=== PATIENT | female | born 1950 | race Caucasian/White ===

== ENCOUNTER 2016-09-20 00:53 | Emergency (ER) | payer MEDICARE ==
[~2016-09-20] VITALS: Ht 160 cm; Wt 66.7 kg
[~2016-09-20 00:53] MED LIST: ACYCLOVIR800 MG PO; ALEVE220 MG PO; BENZONATATE100 MG PO; CLONAZEPAM 1MG T1 MG PO; CYCLOBENZAPRINE10 MG PO; CYMBALTA60 MG PO; DARVOCET A500 51 TAB PO; DICYCLOMINE20 MG PO; FLEXERIL10 MG PO; FOLIC ACID1 MG PO; GABAPENTIN300 MG PO; HYDROCHLOROTH12.5 M1 PO; LISINOPRIL5 MG PO; MELOXICAM15 MG PO; MUCINEX600 MG PO; NORTRIPTYLINE10 MG PO; PRAVASTATIN20 MG PO; PROPRANOLOL HCL40 MG PO; TIZANIDINE4 MG PO; TOPAMAX100 MG PO; VICODIN 5/500 T1 TAB PO; ZOLPIDEM10 MG PO; [UNRECOGNIZED DRUG - OTHER] PO
--- NOTE | 2016-09-20 01:10 | Emergency Room Report ---
History of Present Illness Time Seen by [id number] Presenting Problem in Triage Pt arrived:Stretcher Presenting Problem:PT BROUGHT IN BY AMBULANCE FROM [facility]. PT REPORTS THAT SHE HAS WORMS IN HER BODY. PT REPORTS THAT ONE IS PRESSING AGAINST HER BRAIN AND THERE IS ONE IN HER INTESTINES. 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 N Clinical Suspician of Infection? N Mental Status: 1 - Regular (Normal Baseline) Sepsis Risk:Low Sepsis Risk Have you (or family members/close friends) recently traveled outside the [place]? N If Yes, where/when: Have you had exposure to infectious disease within the past month? N TB? Other? Specify: Source patient, RN notes reviewed, RN/MD, EMS notes reviewed Exam Limitations no limitations Comment This is a 66-year-old female patient, with known schizoaffective disorder that he is being brought in by EMS from [facility] with multiple various complaints. She was recently admitted at [facility] approximately 3 days ago. Patient says that she feels "something crawling through my veins", generalized "weakness", "something moving through my scalp". ALLERGIES Coded Allergies: MDX - Penicillin (Penicillin) (03/15/07) Converted from Ingredient Allergy: Penicillin Converted from Drug Class Allergy: Penicillins MDX - Penicillin G (From Penicillin G Sodium) (03/15/07) Converted from Generic Allergy: Penicillin G Sodium MDX - SULFA (sulfonamide) (SULFA (sulfonamide)) (08/06/08) Converted from Ingredient Allergy: SULFA (sulfonamide) MDX - Sulfamethoxazole (Sulfamethoxazole) (08/06/08) Converted from Generic Allergy: Sulfamethoxazole W/Trimethop ri MDX - Trimethoprim (Trimethoprim) (08/06/08) Converted from Generic Allergy: Sulfamethoxazole W/Trimethop nm Home Medications Reported Medications Hydrochlorothiazide (Hydrochlorothiazide 12.5MG) 12.5 MG PO DAILY TIZANIDINE HCL (Tizanidine) 4 MG PO TID PRN Cyclobenzaprine Hcl (Cyclobenzaprine 10MG) 10 MG PO BID Clonazepam (Clonazepam 1MG) 1 MG PO QHS Folic Acid 1 MG PO DAILY Topiramate (Topamax) 150 MG PO QHS Meloxicam (Meloxicam 15MG) 15 MG PO BID Lisinopril 5 MG PO DAILY Nortriptyline Hcl (Nortriptyline HCl) 1 CAP PO DAILY Propranolol Hcl 40 MG PO BID Pravastatin Sodium 20 MG PO QHS Acyclovir (Acyclovir 800MG) 800 MG PO DAILY History Medical History General Angina: Yes PR: No Hypertension? Yes Hyperlipidemia? No CHF? No COPD? No Asthma? No Hernia? No CVA? No Seizures? No Diabetes? No UTI? No Stones? No GB Disease: No Hepatitis? No Cataracts? No Glaucoma? No MRSA? No TB? No Cancer? No More? Yes Additional hx: SCHIZOAFFECTIVE Immunization Hx DT/Tetanus > 10 YRS Flu NEVER Pneumonia NEVER Surgical Hx Previous Surgery?Y Hysterect POLYPECTOMY R BREAST LUMPECTOMY X 2 R BREAST TISSUE REMOVED EYELID BILATERALLY COLONOSCOPY LT KNEE Family History Family Hx Diabetes Yes CAD Yes Hypertension Yes Hyperlipidemia Yes Cancer Yes TB Yes Social History Smoking Hx Smoker: Former Smoker Tobacco: No Packs/day < 1 Pack Alcohol Alcohol: No Review of Systems All Other Systems Reviewed and Negative Psychiatric/Neurological weakness Physical Exam Vital Signs Vital Signs Date Time Temp Pulse Resp B/P Pulse O2 O2 Flow FiO2 Ox Delivery Rate 09/20 0252 78 16 156/70 98 09/20 0250 78 16 156/70 98 09/20 0218 67 16 147/52 98 09/20 0147 72 12 163/64 98 09/20 0055 98.0 84 18 183/70 100 General Appearance normal appearance, WD/WN, no apparent distress Neck normal inspection, non-tender, supple, full range of motion Respiratory Status Yes: trachea midline, chest symmetrical, non tender chest. No: respiratory distress. Lung Sounds bilateral: normal breath sounds, lungs clear. 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 No Comment Upon reevaluation patient appears in no acute distress, medically stable, asleep. Advised patient of results obtained, need to drink more fluids and follow-up with Dr. Bass within the next 2 days. Results/Orders Laboratory Tests 09/20/16 0120: Sodium 136, Potassium 3.4 L, Chloride 98, Carbon Dioxide 29, BUN 13, Creatinine 0.8, Estimated Creat Clear 74, Estimated GFR (MDRD) 72, Glucose 114 H, Calcium 8.5, Total Bilirubin 0.3, AST 18, ALT 22, Alkaline Phosphatase 122 H, Total Protein 6.6, Albumin 3.2 L, Globulin 3.4 H, Albumin/Globulin Ratio 0.9 L, WBC 7.2, RBC 3.48 L, Hgb 10.8 L, Hct 32.5 L, MCV 93.5, RDW 14.3, Plt Count 222, MPV 5.6 L, Gran % 69.7, Gran # 5.1, Lymphocytes % 22.2, Monocytes % 4.4, Eosinophils % 3.0, Basophils % 0.8, Lymphocytes # 1.6, Monocytes # 0.3, Eosinophils # 0.2, Basophils # 0.1, PUBS MCHC 33.3, MCH 31.1 09/20/16 010: Urine Color Cancelled, Urine Appearance Cancelled, Urine pH Cancelled, Ur Specific [place] Cancelled Orders Procedure Date/time Status CBC WITH AUTO DIFF 09/20 108 Complete CHEM 12 PROFILE 09/20 108 Complete Departure Departure Time of Disposition 0215 Disposition DC Home or Self Care(routine) Clinical Impression Primary Impression: Dehydration Secondary Impressions: Anemia Qualifiers: Anemia type: unspecified type Qualified Code: D64.9 - Anemia, unspecified Schizoaffective disorder Qualifiers: Schizoaffective disorder type: unspecified Qualified Code: F25.9 - Schizoaffective disorder, unspecified Condition STABLE Referrals Nikolai Bass (Family): Today after leaving ER Patient Instructions DI for Dehydration -- Adult, DI for Schizoaffective Disorder Additional Instructions Please continue your medications as previously instructed, drink more fluids, follow-up with Dr. Bass in the morning. Discharge Counseling Counseled pt/family regarding diagnosis, test results, medications/RX, home care, follow up needs Comment Please continue your medications as previously instructed, drink more fluids, follow-up with Dr. Bass in the morning. ED Critical Care Critical Care No at 0701
--- NOTE | 2016-09-20 01:10 | Emergency Room Report ---
History of Present Illness Time Seen by [id number] Presenting Problem in Triage Pt arrived:Stretcher Presenting Problem:PT BROUGHT IN BY AMBULANCE FROM [facility]. PT REPORTS THAT SHE HAS WORMS IN HER BODY. PT REPORTS THAT ONE IS PRESSING AGAINST HER BRAIN AND THERE IS ONE IN HER INTESTINES. 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 N Clinical Suspician of Infection? N Mental Status: 1 - Regular (Normal Baseline) Sepsis Risk:Low Sepsis Risk Have you (or family members/close friends) recently traveled outside the [place]? N If Yes, where/when: Have you had exposure to infectious disease within the past month? N TB? Other? Specify: Source patient, RN notes reviewed, RN/MD, EMS notes reviewed Exam Limitations no limitations Comment This is a 66-year-old female patient, with known schizoaffective disorder that he is being brought in by EMS from [facility] with multiple various complaints. She was recently admitted at [facility] approximately 3 days ago. Patient says that she feels "something crawling through my veins", generalized "weakness", "something moving through my scalp". ALLERGIES Coded Allergies: MDX - Penicillin (Penicillin) (03/15/07) Converted from Ingredient Allergy: Penicillin Converted from Drug Class Allergy: Penicillins MDX - Penicillin G (From Penicillin G Sodium) (03/15/07) Converted from Generic Allergy: Penicillin G Sodium MDX - SULFA (sulfonamide) (SULFA (sulfonamide)) (08/06/08) Converted from Ingredient Allergy: SULFA (sulfonamide) MDX - Sulfamethoxazole (Sulfamethoxazole) (08/06/08) Converted from Generic Allergy: Sulfamethoxazole W/Trimethop ri MDX - Trimethoprim (Trimethoprim) (08/06/08) Converted from Generic Allergy: Sulfamethoxazole W/Trimethop ga Home Medications Reported Medications Hydrochlorothiazide (Hydrochlorothiazide 12.5MG) 12.5 MG PO DAILY TIZANIDINE HCL (Tizanidine) 4 MG PO TID PRN Cyclobenzaprine Hcl (Cyclobenzaprine 10MG) 10 MG PO BID Clonazepam (Clonazepam 1MG) 1 MG PO QHS Folic Acid 1 MG PO DAILY Topiramate (Topamax) 150 MG PO QHS Meloxicam (Meloxicam 15MG) 15 MG PO BID Lisinopril 5 MG PO DAILY Nortriptyline Hcl (Nortriptyline HCl) 1 CAP PO DAILY Propranolol Hcl 40 MG PO BID Pravastatin Sodium 20 MG PO QHS Acyclovir (Acyclovir 800MG) 800 MG PO DAILY History Medical History General Angina: Yes MT: No Hypertension? Yes Hyperlipidemia? No CHF? No COPD? No Asthma? No Hernia? No CVA? No Seizures? No Diabetes? No UTI? No Stones? No GB Disease: No Hepatitis? No Cataracts? No Glaucoma? No MRSA? No TB? No Cancer? No More? Yes Additional hx: SCHIZOAFFECTIVE Immunization Hx DT/Tetanus > 10 YRS Flu NEVER Pneumonia NEVER Surgical Hx Previous Surgery?Y Hysterect POLYPECTOMY R BREAST LUMPECTOMY X 2 R BREAST TISSUE REMOVED EYELID BILATERALLY COLONOSCOPY LT KNEE Family History Family Hx Diabetes Yes CAD Yes Hypertension Yes Hyperlipidemia Yes Cancer Yes TB Yes Social History Smoking Hx Smoker: Former Smoker Tobacco: No Packs/day < 1 Pack Alcohol Alcohol: No Review of Systems All Other Systems Reviewed and Negative Psychiatric/Neurological weakness Physical Exam Vital Signs Vital Signs Date Time Temp Pulse Resp B/P Pulse O2 O2 Flow FiO2 Ox Delivery Rate 09/20 0252 78 16 156/70 98 09/20 0250 78 16 156/70 98 09/20 0218 67 16 147/52 98 09/20 0147 72 12 163/64 98 09/20 0055 98.0 84 18 183/70 100 General Appearance normal appearance, WD/WN, no apparent distress Neck normal inspection, non-tender, supple, full range of motion Respiratory Status Yes: trachea midline, chest symmetrical, non tender chest. No: respiratory distress. Lung Sounds bilateral: normal breath sounds, lungs clear. 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 No Comment Upon reevaluation patient appears in no acute distress, medically stable, asleep. Advised patient of results obtained, need to drink more fluids and follow-up with Dr. Bass within the next 2 days. Results/Orders Laboratory Tests 09/20/16 0120: Sodium 136, Potassium 3.4 L, Chloride 98, Carbon Dioxide 29, BUN 13, Creatinine 0.8, Estimated Creat Clear 74, Estimated GFR (MDRD) 72, Glucose 114 H, Calcium 8.5, Total Bilirubin 0.3, AST 18, ALT 22, Alkaline Phosphatase 122 H, Total Protein 6.6, Albumin 3.2 L, Globulin 3.4 H, Albumin/Globulin Ratio 0.9 L, WBC 7.2, RBC 3.48 L, Hgb 10.8 L, Hct 32.5 L, MCV 93.5, RDW 14.3, Plt Count 222, MPV 5.6 L, Gran % 69.7, Gran # 5.1, Lymphocytes % 22.2, Monocytes % 4.4, Eosinophils % 3.0, Basophils % 0.8, Lymphocytes # 1.6, Monocytes # 0.3, Eosinophils # 0.2, Basophils # 0.1, PUBS MCHC 33.3, MCH 31.1 09/20/16 010: Urine Color Cancelled, Urine Appearance Cancelled, Urine pH Cancelled, Ur Specific [place] Cancelled Orders Procedure Date/time Status CBC WITH AUTO DIFF 09/20 108 Complete CHEM 12 PROFILE 09/20 108 Complete Departure Departure Time of Disposition 0215 Disposition DC Home or Self Care(routine) Clinical Impression Primary Impression: Dehydration Secondary Impressions: Anemia Qualifiers: Anemia type: unspecified type Qualified Code: D64.9 - Anemia, unspecified Schizoaffective disorder Qualifiers: Schizoaffective disorder type: unspecified Qualified Code: F25.9 - Schizoaffective disorder, unspecified Condition STABLE Referrals Nikolai Bass (Family): Today after leaving ER Patient Instructions DI for Dehydration -- Adult, DI for Schizoaffective Disorder Additional Instructions Please continue your medications as previously instructed, drink more fluids, follow-up with Dr. Bass in the morning. Discharge Counseling Counseled pt/family regarding diagnosis, test results, medications/RX, home care, follow up needs Comment Please continue your medications as previously instructed, drink more fluids, follow-up with Dr. Bass in the morning. ED Critical Care Critical Care No at 0701
[2016-09-20 01:38] LABS: LYMPH # 1.6 K/mm3 (0.7-4.5); LYMPH % 22.2 % (10-50.0)
[2016-09-20 01:39] LABS: HEMOGLOBIN 10.8 g/dL (12.2-16.2)
[2016-09-20 02:52] VITALS: BP 156/70
[2016-10-02] MEDS ORDERED: OMEGA-31000 M2 PO (03:31)
[2016-10-02] MEDS ORDERED: OMEPRAZOLE40 MG PO (03:32)
[2016-10-02] MEDS ORDERED: RISPERIDONE1 MG PO (03:35)
[2016-10-02] MEDS ORDERED: RISPERDAL 0.50.5 MG NG (03:36)
[2016-10-02] MEDS ORDERED: ALBUTEROL2.5 MG/NEB INH (03:39)
[2016-10-02] MEDS ORDERED: BACLOFEN20 MG PO (03:41)
[2016-10-02] MEDS ORDERED: MIRALAX(PO17 GM/1 PA PO (03:42)
[2016-10-02] MEDS ORDERED: ASPIRIN 81MG TA81 MG PO (03:43)
[2016-10-02] MEDS ORDERED: CALCI-CHEW500 MG PO (03:45)
[2016-10-02] MEDS ORDERED: DEPAKOTE ER250 MG PO (03:47)
[2016-10-02] MEDS ORDERED: DOCUSATE SODIU100 MG PO (03:48)
[2016-10-02] MEDS ORDERED: ALLERGY10 MG PO (03:49)
[2016-10-02] MEDS ORDERED: MELATONIN3 MG PO (03:50)
[2016-10-04] MEDS ORDERED: DILANTIN100 MG PO (12:23)
== END 2016-09-20 02:55 | disposition home or self-care (01) ==
LOC: ER 00:53
PROVIDERS: Emergency Medicine
DX: F25.9 Schizoaffective disorder, unspecified (principal); D64.9 Anemia, unspecified; I10 Essential (primary) hypertension

== ENCOUNTER → 2017-01-24 | Outpatient (CLI) | payer MEDICARE, MEDICAID ==
[~2017-01-24] MED LIST changes: +ALBUTEROL2.5 MG/NEB INH; +ALLERGY10 MG PO; +ASPIRIN 81MG TA81 MG PO; +BACLOFEN20 MG PO; +CALCI-CHEW500 MG PO; +DEPAKOTE ER250 MG PO; +DILANTIN100 MG PO; +DOCUSATE SODIU100 MG PO; +MEDROL DOSEPAK4 MG PO; +MELATONIN3 MG PO; +MIRALAX(PO17 GM/1 PA PO; +OMEGA-31000 M2 PO; +OMEPRAZOLE40 MG PO; +RISPERDAL 0.50.5 MG NG; +RISPERIDONE1 MG PO
== END ==
LOC: RT 10:59
DX: Z80.0 Family history of malignant neoplasm of digestive organs (principal); Z01.818 Encounter for other preprocedural examination

== ENCOUNTER 2017-05-18 05:08 | Emergency (ER) | payer MEDICARE, MEDICAID ==
[~2017-05-18] VITALS: Ht 160 cm; Wt 71.7 kg
[~2017-05-18 05:08] MED LIST changes: +AMLODIPINE BES10 MG PO; +ATIVAN1 MG PO; +AVPAK AZITHROM250 MG PO; +FLONASE 50 MCG16 GM; +FUROSEMIDE 40MG40 M1 PO; +IMODIUM A-D2 M3 PO; +LISINOPRIL10 MG PO; +LOPRESSOR 50 MG50 MG PO; +MELOXICAM7.5 MG PO; +PHENYTOIN 100M100 MG PO; +POTASSIUM CHLO10 ME4 PO; +PROAIR HFA0.09 MG/AC IH; +RISPERDAL 0.50.5 MG PO; +RISPERIDONE3 MG PO; +ROBITUSSIN10 ML/UDC PO; +SERTRALINE 50MG50 MG PO
[2017-05-18 05:34] LABS: HEMOGLOBIN 11.9 g/dL (12.2-16.2); LYMPH # 1.7 K/mm3 (0.7-4.5); LYMPH % 34.3 % (10-50.0)
--- OUTSIDE RECORDS SUMMARY | 2017-05-18 05:53 | External Medical Summary Rpt | CCD ---
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 46 1- 3- 00 14 CA ve N 28 20 20 93 RE 81 88 17 17 05 9 15 PH MG AR MA CH CY EW AB LE TA BL ET DO 45 09 10 60 30 00 ME Ac CU 80 -1 -1 .0 00 D ti SA 20 3- 3- 00 14 CA ve TE 48 20 20 93 RE 67 17 17 43 SO 8 39 PH DI AR UM MA CY 10 0 MG SO FT GE L ME 00 09 10 60 30 00 ME Ac LA 90 -1 -1 .0 00 D ti TO 45 1- 3- 00 14 CA ve NI 18 20 20 92 RE N 25 17 17 30 3 2 77 PH MG AR MA TA CY BL ET LO 00 09 10 30 30 00 ME Ac RA 78 -0 -0 .0 00 D ti TA 15 8- 6- 00 14 CA ve DI 07 20 20 91 RE NE 70 17 17 89 1 54 PH 10 AR MA MG CY TA BL ET MA 00 08 09 40 5 00 ME Ac PA 90 -2 -2 .0 00 D ti P 41 3- 2- 00 14 CA ve 32 98 20 20 83 RE 5 26 17 17 14 MG 1 48 PH AR TA MA BL CY ET LO 00 07 09 30 30 00 ME Ac RA 78 -3 -0 .0 00 D ti TA 15 1- 1- 00 14 CA ve DI 07 20 20 67 RE NE 70 17 17 97 1 07 PH 10 AR MA MG CY TA BL ET MA 00 08 09 40 5 00 ME Ac PA 90 -1 -0 .0 00 D ti P 41 1- 1- 00 14 CA ve 32 98 20 20 76 RE 5 26 17 17 10 MG 1 89 PH AR TA MA BL CY ET MA 00 07 08 40 5 00 ME Ac PA 90 -2 -1 .0 00 D ti P 41 2- 8- 00 14 CA ve 32 98 20 20 64 RE 5 26 17 17 83 MG 1 38 PH AR TA MA BL CY ET 00 07 08 30 30 00 ME Ac PI 90 -0 -0 .0 00 D ti RI 46 5- 4- 00 14 CA ve N 28 20 20 52 RE 81 88 17 17 32 9 07 PH MG AR MA CH CY EW AB LE TA BL ET CA 00 07 08 30 30 00 ME Ac LC 53 -0 -0 .0 00 D ti IU 61 5- 4- 00 14 CA ve M 04 20 20 52 RE AN 81 17 17 32 TA 5 08 PH CI AR D MA 50 CY 0 MG CH W TA B LO 00 07 08 30 30 00 ME Ac RA 78 -0 -0 .0 00 D ti TA 15 3- 4- 00 14 CA ve DI 07 20 20 51 RE NE 70 17 17 63 1 36 PH 10 AR MA MG CY TA BL ET DO 45 07 08 60 30 00 ME Ac CU 80 -1 -0 .0 00 D ti SA 20 1- 4- 00 14 CA ve TE 48 20 20 56 RE 67 17 17 72 SO 8 61 PH DI AR UM MA CY 10 0 MG SO FT GE L DO 45 06 07 60 30 00 ME Ac CU 80 -1 -0 .0 00 D ti SA 20 2- 7- 00 14 CA ve TE 48 20 20 38 RE 67 17 17 50 SO 8 01 PH DI AR UM MA CY 10 0 MG SO FT GE L DO 45 02 05 0 60 30 ME 14 GA Ac CU 80 -1 -1 0. D 18 IN ti SA 20 7- 2- 00 CA 35 EY ve TE 48 20 20 0 RE 94 67 17 17 NE SO 8 PH CH DI AR AE UM MA L CY S 10 0 LL MG C SO FT GE L LO 00 02 05 0 30 30 ME 14 GA Ac RA 78 -1 -0 0. D 15 IN ti TA 15 7- 8- 00 CA 68 EY ve DI 07 20 20 0 RE 53 NE 70 17 17 NE 1 PH CH 10 AR AE MA L MG CY S TA LL BL C ET 00 02 05 0 30 30 ME 14 GA Ac PI 90 -1 -0 0. D 15 IN ti RI 46 7- 8- 00 CA 68 EY ve N 28 20 20 0 RE 54 81 88 17 17 NE 9 PH CH MG AR AE MA L CH CY S EW AB LL LE C TA BL ET CA 00 02 05 0 30 30 ME 14 GA Ac LC 53 -1 -0 0. D 15 IN ti IU 61 7- 8- 00 CA 68 EY ve M 04 20 20 0 RE 56 AN 81 17 17 NE TA 5 PH CH CI AR AE D MA L 50 CY S 0 MG LL C CH W TA B ME 00 02 05 0 60 30 ME 14 GA Ac LA 90 -1 -0 0. D 16 IN ti TO 45 8- 8- 00 CA 69 EY ve NI 18 20 20 0 RE 08 N 25 17 17 NE 3 2 PH CH MG AR AE MA L TA CY S BL ET LL C DO 45 02 04 0 60 30 ME 14 GA Ac CU 80 -1 -1 0. D 04 IN ti SA 20 7- 4- 00 CA 55 EY ve TE 48 20 20 0 RE 10 67 17 17 NE SO 8 PH CH DI AR AE UM MA L CY S 10 0 LL MG C SO FT GE L ME 00 02 04 0 60 30 ME 14 GA Ac LA 90 -1 -1 0. D 04 IN ti TO 45 8- 4- 00 CA 55 EY ve NI 18 20 20 0 RE 13 N 25 17 17 NE 3 2 PH CH MG AR AE MA L TA CY S BL ET LL C 00 02 04 0 30 30 ME 14 GA Ac PI 90 -1 -1 0. D 03 IN ti RI 46 7- 2- 00 CA 81 EY ve N 28 20 20 0 RE 02 81 88 17 17 NE 9 PH CH MG AR AE MA L CH CY S EW AB LL LE C TA BL ET CA 00 02 04 0 30 30 ME 14 GA Ac LC 53 -1 -1 0. D 03 IN ti IU 61 7- 2- 00 CA 81 EY ve M 04 20 20 0 RE 04 AN 81 17 17 NE TA 5 PH CH CI AR AE D MA L 50 CY S 0 MG LL C CH W TA B LO 00 02 04 0 30 30 ME 14 GA Ac RA 78 -1 -1 0. D 03 IN ti TA 15 7- 2- 00 CA 81 EY ve DI 07 20 20 0 RE 05 NE 70 17 17 NE 1 PH CH 10 AR AE MA L MG CY S TA LL BL C ET Results Labs Lab Lab Date Result Refere Interp Status Commen Order Detail nces retati t Range on CBC w auto diff (05-18-2017 05:25) Automat = 6.7 % 0.1-12. complet ed 017 0 ed blood 05:25 eosinop hils/10 0 leukocy t Blood = 2.5 1.8-7.8 complet granulo 017 K/mm3 ed cytes 05:25 automat ed count (numb Granulo = 51.2 37.0-80 complet cyte 017 % .0 ed percent 05:25 age Blood = 35.6 37.0-47 complet hematoc 017 % .0 ed rit 05:25 (volume fractio n) Blood = 11.9 12.2-16 complet hemoglo 017 g/dL .2 ed bin 05:25 measure ment (mass/v olum Absolut = 1.7 0.7-4.5 complet e 017 K/mm3 ed lymphoc 05:25 yte count Lymphoc = 34.3 10-50.0 complet yte 017 % ed count, 05:25 blood, automat ed Mean = 29.9 27-31.2 complet corpusc 017 pg ed ular 05:25 hemoglo bin (MCH) determ Automat = 33.4 31.8-35 complet ed 017 g/dl .4 ed erythro 05:25 cyte mean corpusc ular h Automat = 89.7 82.2-97 complet ed 017 fl .8 ed erythro 05:25 cyte mean corpusc ular v Absolut = 0.3 0.1-1.0 complet e 017 K/mm3 ed monocyt 05:25 e count Maury % = 7.1 % 1.7-9.3 complet 017 ed 05:25 Automat = 8.0 7.4-10. complet ed 017 fl 4 ed blood 05:25 platele t mean volume brando Blood = 189 142-424 complet platele 017 K/mm3 ed t count 05:25 Red 10-18-2 = 3.97 4.2-5.4 complet blood 017 M/mm3 ed cell 05:25 count Automat 1018-2 = 15.7 11.5-17 complet ed 017 % .5 ed erythro 05:25 cyte distrib ution width Blood 18-2 = 4.8 4.8-10. complet leukocy 017 K/MM3 8 ed hernando 05:25 count (number /volume ) Automat 18-2 = 0.0 0-0.2 complet ed 017 K/MM3 ed blood 05:25 basophi l count (count/ vo Baso % 05-18-2 = 0.7 % 0.1-2.0 complet 017 ed 05:25 Automat 1018-2 = 0.3 0.0-0.4 complet ed 017 K/mm3 ed blood 05:25 eosinop hil count Procedures Procedure DOS Code Location Performer Comment SLCTV 07094 [facility] CATH 7 PHYSICIAN 1STORD S GROUP W/WO ART PUNCT/FLU OR/S&I CAROLYN CATH PLMT 28838 [facility] HRT & 7 PHYSICIAN ARTS S GROUP W/NJX & ANGIO IMG S&I RADIOLOGI 80185 [facility] EXAM 7 MEDICAL CHEST 2 IMAGING VIEWS ASS FRONTAL&L ATERAL ECG 39946 [facility] ROUTINE 7 PHYSICIAN ECG S, PLLC W/LEAST 12 LDS I&R ONLY INITIAL 05755 [facility] 7 PHYSICIAN CARE/DAY S GROUP 70 MINUTES CRITICAL 92575 [facility] 7 PHYSICIAN ILL/INJUR S, PLLC ED PATIENT INIT 30-74 MIN GROUND A0425 [facility] MILEAGE 7 AMBULANCE AMBULANCE PER SERVICE SERVICE STATUTE MILE AMBULANCE A0429 [facility] SERVICE 7 AMBULANCE AMBULANCE BLS SERVICE SERVICE EMERGENCY TRANSPORT ECG 55100 [facility] ROUTINE 7 [facility] W/LEAST P 12 LDS I&R ONLY NONEMERG A0120 [facility]ER[facility] TRNSPRT: 7 MINI-BUS TRANSPORT TRANSPORT MTN ATION SER ATION SER AREA/OTH SYS ECG 27767 [facility] ROUTINE 7 [facility] ECG INC INC W/LEAST 12 LDS W/I&R RADEX HIP 53344 [facility] 7 MEDICAL UNILATERA IMAGING L WITH ASS PELVIS 2-3 VIEWS THERAPEUT 93640 [facility] IC 7 [facility] PROPHYLAC INC INC TIC/DX INJECTION SUBQ/IM AMBULANCE A0429 [facility] SERVICE 7 AMBULANCE AMBULANCE BLS SERVICE SERVICE EMERGENCY TRANSPORT GROUND A0425 [facility] MILEAGE 7 AMBULANCE AMBULANCE PER SERVICE SERVICE STATUTE MILE BASIC 57282 [facility] METABOLIC 7 TIFFANIE TIFFANIE PANEL [employer] [employer] CALCIUM TOTAL DRUG 93762 [facility] SCREEN 7 TIFFANIE TIFFANIE QUANTITAT HOLDINGS HOLDINGS MARVA PHENYTOIN TOTAL BASIC 48187 [facility] METABOLIC 7 TIFFANIE TIFFANIE [employer] [place] [address] [facility] BUSCH HEAD/BRAI 7 MEDICAL N W/O IMAGING CONTRAST ASS MATERIAL AMB A0427 [facility] SERVICE 7 AMBULANCE AMBULANCE ALS SERVICE SERVICE EMERGENCY TRANSPORT LEVEL 1 GROUND A0425 [facility] MILEAGE 7 AMBULANCE AMBULANCE PER SERVICE SERVICE STATUTE MILE NONEMERG A0120 [facility] TRNSPRT: 6 [facility]ASS ULTRA MINI-BUS COMMUNITY TRANSIT MTN ACTION SERV AREA/OTH SYS NONEMERG A0120 [facility] TRNSPRT: 6 [facility]ASS ULTRA MINI-BUS COMMUNITY TRANSIT MTN ACTION SERV AREA/OTH SYS RADEX 79017 AKASH PAWLEY HIPS 6 MEDICAL BAR BILATERAL SERV WITH FOUNDATIO PELVIS N 3-4 VIEWS RADEX 85821 [facility] HIPS 6 Y Y [facility] H[facility]PITAL HOSPITAL WITH PELVIS 3-4 VIEWS NONEMERG A0120 [facility] TRNSPRT: 6 GRASS ULTRA MINI-BUS COMMUNITY TRANSIT MTN ACTION SERV AREA/OTH SYS INJECTION J3301 [facility] 6 Y Y [facility] LONE ACETONIDE NOS 10 MG ARTHROCEN 46519 [facility] 6 Y Y ASPIR&/IN HOSPITAL HOSPITAL J MAJOR JT/BURSA W/O US CT 05-10-201 26406 [facility] [place] [facility] ABDOMEN & 6 RADIOLOGY RAY PELVIS W/CONTRAS T MATERIAL GROUND A0425 [facility] MILEA 6 N-LAUREEN RUTLEDGE PER CO EMS CO EMS STATUTE MILE AMBULANCE A0429 [facility] SERVICE 6 N-LAUREEN Guerrero-LAUREEN BLS CO EMS CO EMS EMERGENCY TRANSPORT AMBULANCE A0429 [facility] SERVICE 6 N-LAUREEN Guerrero-LAUREEN BLS CO EMS CO EMS EMERGENCY TRANSPORT GROUND A0425 [facility] MILEA 6 N-LAUREEN RUTLEDGE PER CO EMS CO EMS STATUTE MILE GROUND A0425 [facility] MILEA 6 N-LAUREEN Guerrero-LAUREEN PER CO EMS CO EMS STATUTE MILE AMBULANCE A0429 [facility] SERVICE 6 N-LAUREEN Guerrero-LAUREEN BLS CO EMS CO EMS EMERGENCY TRANSPORT AMBULANCE A0429 [facility] SERVICE 6 N-LAUREEN Guerrero-LAUREEN BLS CO EMS CO EMS EMERGENCY TRANSPORT GROUND A0425 [facility] N-LAUREEN RUTLEDGE PER CO EMS CO EMS STATUTE MILE RADEX HIP 32009 [facility] [place] SCALF CHAD 6 RADIOLOGY UNILATERA L WITH PELVIS 2-3 VIEWS NONEMERG A0120 [facility] TRNSPRT: 6 [facility]ASS ULTRA MINI-BUS COMMUNITY TRANSIT MTN ACTION SERV AREA/OTH SYS SELF-CARE 71408 [facility] /HOME 6 N N MGMT COMMUNTIY COMMUNTIY TRAINING HOSPITA HOSPITA EACH 15 MINUTES NONEMERG A0120 [facility] TRNSPRT: 6 [facility] ULTRA [facility]I-BUS COMMUNITY TRANSIT MTN ACTION SERV AREA/OTH SYS PHYSICAL 40968 [facility] THERAPY 6 N N EVALUATIO COMMUNTIY COMMUNTIY N HOSPITA HOSPITA APPL 71821 [facility] MODALITY 6 N N 1/> AREAS COMMUNTIY COMMUNTIY HOSPITA HOSPITA IONTOPHOR ESIS EA 15 MIN NONEMERG A0120 [facility] OREILLY TRNSPRT: 6 GRASS ULTRA MINI-BUS COMMUNITY TRANSIT MTN ACTION SERV AREA/OTH SYS INJECTION J3301 [place] [address] Y [facility] LONE ACETONIDE NOS 10 MG ARTHROCEN 09923 AKASH SAMANO 6 MEDICAL ASPIR&/IN SERV J MAJOR FOUNDATIO JT/BURSA N W/O US AMBULANCE A0429 [facility] SERVICE 6 N-LAUREEN Guerrero-LAUREEN BLS CO EMS CO EMS EMERGENCY TRANSPORT GROUND A0425 [facility] MILEA 6 N-LAUREEN RUTLEDGE PER CO EMS CO EMS STATUTE MILE AMBULANCE A0429 [facility] SERVICE 6 N-LAUREEN Guerrero-LAUREEN BLS CO EMS CO EMS EMERGENCY TRANSPORT GROUND A0425 [facility] N-LAUREEN RUTLEDGE PER CO EMS CO EMS STATUTE MILE RADEX HIP 50612 [facility] 6 N N UNILATERA COMMUNTIY COMMUNTIY L WITH HOSPITA HOSPITA PELVIS 2-3 VIEWS GROUND A0425 [facility] N-LAUREEN RUTLEDGE PER CO EMS CO EMS STATUTE MILE AMBULANCE A0429 [facility] SERVICE 6 N-LAUREEN Guerrero-LAUREEN BLS CO EMS CO EMS EMERGENCY TRANSPORT ECG 74460 [facility] ROUTINE 6 N N ECG COMMUNTIY COMMUNTIY W/LEAST HOSPITA HOSPITA 12 LDS TRCG ONLY W/O I&R IAADIADOO 12696 [facility] 6 N N STREPTOCO COMMUNTIY COMMUNTIY CCUS HOSPITA HOSPITA GROUP A CUL BACT 70222 [facility] XCPT 6 N N URINE COMMUNTIY COMMUNTIY BLOOD/STO HOSPITA [place] [address] [facility] TROPONIN 6 N N QUANTITAT COMMUNTIY COMMUNTIY MARVA HOSPITA HOSPITA COLLECTIO 32868 [facility] N VENOUS 6 N N BLOOD COMMUNTIY COMMUNTIY [place] [address] [facility] CERVICAL 6 Y Y SPINE W/O HOSPITAL HOSPITAL CONTRAST MATERIAL RADEX 74278 [facility] ANKLE 6 Y Y COMPLETE HOSPITAL HOSPITAL MINIMUM 3 VIEWS RADEX 69869 [facility] FOOT 6 Y Y COMPLETE HOSPITAL HOSPITAL MINIMUM 3 VIEWS ECG 12091 [place] [facility] ROUTINE 6 MEDICAL ECG SERV W/LEAST FOUNDATIO 12 LDS N I&[place] [address] [facility] HEAD/BRAI 6 Y Y N W/[place] [address] [facility] THORACIC 6 Y Y SPINE W/O HOSPITAL HOSPITAL CONTRAST MATERIAL ECG 26443 [facility] ROUTINE 6 Y Y ECG HOSPITAL HOSPITAL W/LEAST 12 LDS TRCG ONLY W/O I&R RADIOLOGI 16978 [facility] C 6 Y [facility] [address] LUMBAR 39981 [facility] SPINE 6 Y Y W/O HOSPITAL HOSPITAL CONTRAST MATERIAL RADEX HIP 49707 [facility] [place] SCALF CHAD 6 RADIOLOGY UNILATERA L WITH PELVIS 2-3 VIEWS GROUND A0425 [facility] 6 Yolanda-LAUREEN RUTLEDGE PER CO EMS CO EMS STATUTE MILE AMBULANCE A0429 [facility] 6 Yolanda-LAUREEN RUTLEDGE BLS CO EMS CO EMS EMERGENCY TRANSPORT AMBULANCE A0429 [facility] SERVICE 6 Yolanda-LAUREEN CRS CO EMS CO EMS EMERGENCY TRANSPORT GROUND A0425 [facility] Yolanda-LAUREEN RUTLEDGE PER CO EMS CO EMS STATUTE MILE GROUND A0425 [facility] Yolanda-LAUREEN RUTLEDGE PER CO EMS CO EMS STATUTE MILE AMB A0427 [facility] 6 Yolanda-LAUREEN RUTLEDGE ALS CO EMS CO EMS EMERGENCY TRANSPORT LEVEL 1 RADIOLOGI 75818 [facility] AKASH DURAN C 6 RADIOLOGY III EXAMINATI ON PELVIS 1/[address] [place] [address] AKASH ANTHONY ABDOMEN & 6 MEDICAL BAR PELVIS SERV W/O FOUNDATIO CONTRAST N MATERIAL AMBULANCE A0429 [facility] SERVICE 6 Yolanda-LAUREEN RUTLEDGE BLS CO EMS CO EMS EMERGENCY TRANSPORT GROUND A0425 [facility] 6 Yolanda-LAUREEN RUTLEDGE PER CO EMS CO EMS STATUTE MILE NONEMERG A0120 [facility] TRNSPRT: 6 [facility] ULTRA MINI-BUS COMMUNITY TRANSIT MTN ACTION SERV AREA/OTH SYS NONEMERG A0120 [facility] TRNSPRT: 6 GRASS ULTRA MINI-BUS COMMUNITY TRANSIT MTN ACTION SERV AREA/OTH SYS RADEX 22430 [facility] 6 Y Y 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 MICROSCOP Y DRUG TEST G0479 [facility] 6 N N PRESUMP;I COMMUNTIY [facility] HOSPITA ED CHEMISTRY ANLYZER ECG 21903 [facility] ROUTINE 6 N N ECG COMMUNTIY COMMUNTIY W/LEAST HOSPITA HOSPITA 12 LDS TRCG ONLY W/O I&R AMB A0427 [facility] SERVICE 6 Yolanda-LAUREEN RUTLEDGE ALS CO EMS CO EMS EMERGENCY TRANSPORT LEVEL 1 ECG 27077 [facility] ROUTINE 6 SCO SCO ECG W/LEAST 12 LDS I&R ONLY CHIROPRAC 72960 [facility] TIC 6 N FAMILY JENNIFER MANIPULAT CHIROPRAC MARVA TX T SPINAL 3-4 REGIONS INJECTION J2765 [facility] 6 N N METOCLOPR COMMUNTIY COMMUNTIY AMIDE HCL HOSPITA HOSPITA UP TO 10 MG THERAPEUT 71153 [facility] IC 6 N N INJECTION COMMUNTIY COMMUNTIY IV PUSH HOSPITA HOSPITA EACH NEW DRUG APPL 97285 [facility] MODALITY 6 N FAMILY JENNIFER 1/> AREAS CHIROPRAC TRACTION T MECHANICA L THER 00870 [facility] PROPH/DX 6 N N NJX IV COMMUNTIY COMMUNTIY PUSH HOSPITA HOSPITA SINGLE/1S T SBST/DRUG INJECTION J1885 [facility] 6 N N KETOROLAC COMMUNTIY COMMUNTIY HOSPITA HOSPITA TROMETHAM INE PER 15 MG INJECTION J1200 [facility] 6 N N DIPHENHYD COMMUNTIY COMMUNTIY RAMINE HOSPITA HOSPITA HCL UP TO 50 MG GROUND A0425 [facility] 6 Yolanda-LAUREEN RUTLEDGE PER CO EMS CO EMS STATUTE MILE AMBULANCE A0429 [facility] SERVICE 6 Yolanda-LAUREEN CRS CO EMS CO EMS EMERGENCY TRANSPORT AMBULANCE A0429 [facility] SERVICE 6 Yolanda-LAUREEN CRS CO EMS CO EMS EMERGENCY TRANSPORT GROUND A0425 [facility] 6 AAMIR RUTLEDGE PER CO EMS CO EMS STATUTE MILE RADIOLOGI 45944 MICHAEL Uribe 6 STEVO STEVO EXAMINATI ON PELVIS 1/2 VIEWS THER 66017 [facility] PROPH/DX 6 N N NJX IV COMMUNTIY COMMUNTIY PUSH HOSPITA HOSPITA SINGLE/1S T SBST/DRUG INJECTION J1885 [facility] 6 N N KETOROLAC COMMUNTIY COMMUNTIY HOSPITA HOSPITA TROMETHAM INE PER 15 MG INFUSION J7030 [facility] NORMAL 6 N N SALINE COMMUNTIY COMMUNTIY SOLUTION HOSPITA HOSPITA 1000 CC INJECTION J1200 [facility] 6 N N DIPHENHYD COMMUNTIY COMMUNTIY RAMINE HOSPITA HOSPITA HCL UP TO 50 MG THERAPEUT 56175 [facility] IC 6 N N INJECTION COMMUNTIY COMMUNTIY IV PUSH HOSPITA HOSPITA EACH NEW DRUG INJECTION J2765 [facility] 6 N N METOCLOPR COMMUNTIY COMMUNTIY AMIDE HCL HOSPITA HOSP[place] 10 [place] [address] [facility] INFUSION 6 N N HYDRATION COMMUNTIY COMMUNTIY EACH HOSPITA HOSPITA ADDITIONA L HOUR INJECTION J2360 [facility] 6 N N ORPHENADR COMMUNTIY COMMUNTIY INE HOSPITA HOSPITA CITRATE UP TO 60 MG THERAPEUT 51640 [facility] IC 6 N N PROPHYLAC COMMUNTIY COMMUNTIY TIC/DX HOSPITA HOSPITA INJECTION SUBQ/IM AMBULANCE A0429 [facility] SERVICE 6 Yolanda-LAUREEN Guerrero-LAUREEN BLS CO EMS CO EMS EMERGENCY TRANSPORT GROUND A0425 [facility] MILEA 6 AAMIR RUTLEDGE PER CO EMS CO EMS STATUTE MILE GROUND A0425 [facility] Yolanda-LAUREEN RUTLEDGE PER CO EMS CO EMS STATUTE MILE AMBULANCE A0429 [facility] SERVICE 6 Yolanda-LAUREEN RUTLEDGE BLS CO EMS CO EMS EMERGENCY TRANSPORT THERAPEUT 52547 [facility] IC 6 N N PROPHYLAC COMMUNTIY COMMUNTIY TIC/DX HOSPITA HOSPITA INJECTION SUBQ/IM INJECTION J2360 [facility] 6 N N ORPHENADR COMMUNTIY COMMUNTIY INE HOSPITA HOSPITA CITRATE UP TO 60 MG RADEX HIP 17765 [facility] [place] ARREAGA 6 RADIOLOGY GEETHA UNILATERA L WITH PELVIS 2-3 VIEWS NONEMERG A0120 [facility]: 6 [facility] TRANSIT MTN ACTION SERV AREA/OTH SYS RADIOLOGI 62251 AKASH Uribe 6 MEDICAL BAR EXAMINATI SERV ON FEMUR FOUNDATIO MINIMUM 2 N VIEWS RADEX HIP 77822 AKASH CURZ 6 MEDICAL BAR UNILATERA SERV L WITH FOUNDATIO PELVIS N 2-3 VIEWS AMBULANCE A0429 [facility] 6 AAMIR CRS CO EMS CO EMS EMERGENCY TRANSPORT GROUND A0425 [facility] AAMIR RUTLEDGE PER CO EMS CO EMS STATUTE MILE SCREENING G0202 [place] [address] Y [facility] HY CAROLYN INCL CAD WHEN PERFORMD [id number] SCREENING MAMMOGRAP HY NONEMERG A0120 [facility] TRNS[facility]: 6 [facility] TRANSIT MTN ACTION SERV AREA/OTH SYS SCREENING [address] TOMOSYNTH ESIS BI NONEMERG A0120 [facility] TRNSPRT: 6 [facility] TRANSIT MTN ACTION SERV AREA/OTH SYS NONEMERG A0120 [facility] TRNSPRT: 5 [facility] TRANSIT MTN ACTION SERV AREA/OTH SYS AMB A0427 [facility] 5 AAMIR RUTLEDGE ALS CO EMS CO EMS [place] [address] AKASH MARIA ALEJANDRA HEAD/BRAI 5 MEDICAL KATI N W/O SERV CONTRAST FOUNDATIO MATERIAL N GROUND A0425 [facility] AAMIR RUTLEDGE PER CO EMS CO EMS STATUTE MILE RADEX 79899 [facility] 1 5 RADIOLOGY VIEW ASSOC SPECIFY LEVEL RADEX 07179 [facility] 5 RADIOLOGY CERVICAL ASSOC 2 OR 3 VIEWS CHIROP[facility]AC 01366 [facility] TIC 5 N FAMILY JENNIFER MANIPULAT CHIROP[facility]AC MARVA TX T SPINAL 3-4 REGIONS ECG 92348 [place] MARIA L ANDREW ROUTINE 5 MEDICAL ECG SERV W/LEAST FOUNDATIO 12 LDS N I&R ONLY RADIOLOGI 77901 [facility] C 5 Y Y EXAMINATI [facility] HOSPITAL ON PELVIS 1/[address] [place] [address] [facility] ABDOMEN & 5 Y Y PELVIS [facility] HOSPITAL W/CONTRAS T MATERIAL ECG 23591 [facility] ROUTINE 5 Y Y ECG [facility] HOSPITAL W/LEAST 12 LDS TRCG ONLY W/O I&R BLOOD 43522 [facility] COUNT 5 Y Y COMPLETE HOSPITAL HOSPITAL AUTOMATED ASSAY OF [address] [facility] TROPONIN 5 Y Y QUANTITAT [facility] HOSPITAL [place]VA RADIOLOGI 87066 [place] KANDICE C 5 MEDICAL BREANNA EXAMINATI SERV ON CHEST FOUNDATIO SINGLE N VIEW FRONTAL ECG 71300 AKASH KACI CHI ROUTINE 5 MEDICAL ECG SERV W/LEAST FOUNDATIO 12 LDS N I&R ONLY COMPREHEN 37703 [facility] SIVE 5 Y Y METABOLIC [facility] HOSPITAL PANEL LOCM Q9967 [facility] [phone] Y Y MG/ML HOSPITAL HOSPITAL IODINE CONCENTRA TION PER ML CHIROPRAC 72414 JUSTIN PAEZ TIC 5 N FAMILY JENNIFER MANIPULAT CHIROPRAC [place] T SPINAL 3-4 REGIONS CHIROPRAC 15198 JUSTIN PAEZ TIC 5 N FAMILY JENNIFER MANIPULAT CHIROPRAC [place] T SPINAL 3-4 REGIONS THERAPEUT 10300 JUSTIN PAEZ IC PX 1/> 5 N FAMILY JENNIFER AREAS CHIROPRAC EACH 15 T MIN EXERCISES APPL 23180 JUSTIN PAEZ MODALITY 5 N FAMILY JENNIFER 1/> AREAS CHIROPRAC TRACTION T MECHANICA L APPL 80572 JUSTIN PAEZ MODALITY 5 N FAMILY JENNIFER 1/> AREAS CHIROPRAC ELEC T STIMJ EA 15 MIN RADIOLOGI 33371 [facility] [place] MARY C 5 RADIOLOGY RHO EXAMINATI ON CHEST SINGLE VIEW FRONTAL OBSERVATI 21713 AIMEE AIMEE ON CARE 5 HUG HUG DISCHARGE MANAGEMEN T SBSQ 16559 GIORGIOMarivel TEJEDA OBSERVATI 5 N MICHAEL ON CARDIOLOG CARE/DAY Y 25 MINUTES MYOCARDIA 27389 [place] NIKHIL L SPECT 5 N MICHAEL MULTIPLE CARDIOLOG STUDIES Y ECHO 03139 GIORGIOMarivel TEJEDA TTHRC R-T 5 N MICHAEL 2D CARDIOLOG W/WOM-MOD Y E COMPL SPEC&COLR D ECG 85357 AIMEE AIMEE ROUTINE 5 HUG HUG ECG W/LEAST 12 LDS I&R ONLY AMB A0427 [facility] SERVICE 5 AAMIR RUTLEDGE ALS CO EMS CO EMS EMERGENCY TRANSPORT LEVEL 1 CV STRS 51447 GIORGIOMarivel TEJEDA TST 5 N MICHAEL XERS&/OR CARDIOLOG RX CONT Y ECG I&R ONLY RADEX 39288 [facility] [place] MARY HIPS 5 RADIOLOGY RHO BILATERAL 2 VIEWS ANTEROPOS T PELVIS RADIOLOGI 69034 [facility] [place] MARY C 5 RADIOLOGY RHO EXAMINATI [place] [address] [facility] [place] M[place] HEAD/BRAI 5 RADIOLOGY RHO N W/O CONTRAST MATERIAL CV STRS 23234 GIORGIOMarivel TEJEDA TST 5 N MICHAEL XERS&/OR CARDIOLOG RX CONT Y ECG W/O I&R INITIAL 40331 AIMEE AIMEE OBSERVATI 5 HUG HUG ON CARE/DAY 70 MINUTES GROUND A0425 [facility] MILEAGE 5 AAMIR RUTLEDGE PER CO EMS CO EMS STATUTE MILE APPL 05077 [facility] JAENNINE MODALITY 5 N FAMILY JENNIFER 1/> AREAS CHIROPRAC ELEC T STIMJ UNATTENDE D CHIROPRAC 13154 [facility] JEANNINE TIC 5 N FAMILY JENNIFER MANIPULAT CHIROPRAC [place] T SPINAL 3-4 REGIONS APPL 77021 [facility] JEANNINE MODALITY 5 N FAMILY JENNIFER 1/> AREAS CHIROPRAC TRACTION T MECHANICA L APPL 14037 [facility] JEANNINE MODALITY 5 N FAMILY JENNIFER 1/> AREAS CHIROPRAC TRACTION T MECHANICA L CHIROPRAC 66806 GIORGIOMarivel PAEZ TIC 5 N FAMILY JENNIFER MANIPULAT CHIROPRAC [place] T SPINAL 3-4 REGIONS APPL 95810 [facility] JEANNINE MODALITY 5 N FAMILY JENNIFER 1/> AREAS CHIROPRAC ELEC T STIMJ UNATTENDE D APPL 34459 [place] JEANNINE MODALITY 5 N FAMILY JENNIFER 1/> AREAS CHIROPRAC ELEC T STIMJ UNATTENDE D CHIROPRAC 02203 [facility] JEANNINE TIC 5 N FAMILY JENNIFER MANIPULAT CHIROPRAC [place] T SPINAL 3-4 REGIONS APPL 41175 [facility] JEANNINE MODALITY 5 N FAMILY JENNIFER 1/> AREAS CHIROPRAC TRACTION T MECHANICA L APPL 26141 [facility] JEANNINE MODALITY 5 N FAMILY JENNIFER 1/> AREAS CHIROPRAC TRACTION T MECHANICA L THERAPEUT 49943 [facility] JEANNINE IC PX 1/> 5 N FAMILY JENNIFER AREAS CHIROPRAC EACH 15 T MIN EXERCISES [facility]AC 69523 [facility] 5 N FAMILY JENNIFER MANIPULAT CHIROPRAC [place] T SPINAL 3-4 REGIONS APPL 01351 [facility] JEANNINE MODALITY 5 N FAMILY JENNIFER 1/> AREAS CHIROPRAC ELEC T STIMJ UNATTENDE D COLLECTIO 30883 [facility] UNIVERS N VENOUS 5 Y Y BLOOD [facility] VENIPUNCT URE COMPREHEN 82401 [facility] SIVE 5 Y Y METABOLIC [facility] PANEL RADIOLOGI 04618 [place] NICKELS C 5 MEDICAL NIKKIE EXAMINATI SERV ON PELVIS FOUNDATIO 1/2 N VIEWS BLOOD 24930 [facility] COUNT 5 Y Y COMPLETE [facility] AUTO&AUTO DIFRNTL WBC CHIROPRAC 00543 [facility] 5 N FAMILY JENNIFER MANIPULAT CHIROPRAC [place] T SPINAL 3-4 REGIONS GROUND A0425 [facility] MILEAGE 5 N-LAUREEN Guerrero-LAUREEN PER CO EMS CO EMS STATUTE MILE AMBULANCE A0429 [facility] SERVICE 5 N-LAUREEN Guerrero-LAUREEN BLS CO EMS CO EMS EMERGENCY TRANSPORT CHIROPRAC 27976 [facility] 5 N FAMILY JENNIFER MANIPULAT CHIROPRAC [place] T SPINAL 3-4 REGIONS IAADIADOO 37070 [facility] EDINSONIEE 5 N URGENT [place] [address] AKASH ADILIA KWA HEAD/BRAI 5 MEDICAL N W/O SERV CONTRAST FOUNDATIO MATERIAL N ECG 37291 AKASH CLEMONS CHI ROUTINE 5 MEDICAL ECG SERV W/LEAST FOUNDATIO 12 LDS N I&R ONLY CHIROPRAC 93253 [facility] JEANNINE TIC 5 N FAMILY JENNIFER MANIPULAT CHIROPRAC [place] T SPINAL 3-4 REGIONS APPL 58217 [facility] JEANNINE MODALITY 5 N FAMILY JENNIFER 1/> AREAS CHIROPRAC TRACTION T MECHANICA L APPL 65399 [facility] JEANNINE MODALITY 5 N FAMILY JENNIFER 1/> AREAS CHIROPRAC ELEC T STIMJ UNATTENDE D CHIROPRAC 61013 [facility] JEANNINE TIC 5 N FAMILY JENNIFER MANIPULAT CHIROPRAC [place] TX T SPINAL 3-4 REGIONS RADIOLOGI 91235 AKASH CARLOS C 5 MEDICAL FRA EXAMINATI SERV ON PELVIS FOUNDATIO 1/2 N VIEWS RADEX HIP 43402 AKASH CARLOS 5 MEDICAL FRA UNILATERA SERV L FOUNDATIO COMPLETE N MINIMUM 2 VIEWS [facility]IROPRAC 63256 [facility] 5 N FAMILY JENNIFER MANIPULAT CHIROPRAC [place] T SPINAL 3-4 REGIONS INJECTION A9585 [facility] 5 Y Y [facility] 0.1 ML MRI BRAIN 20606 AKASH KELLY MARTÍNEZ BRAIN 5 MEDICAL STEM W/O SERV W/CONTRAS FOUNDATIO T N MATERIAL SERVICE G0151 [facility] AGENCY AGENCY HLTH/HOSP ICE EA 15 MIN SERVICE G0151 [facility] HOME AGENCY AGENCY HLTH/HOSP ICE EA 15 MIN SERVICE G0151 [facility] HOME AGENCY AGENCY HLTH/HOSP ICE EA 15 MIN DIRECT G0154 [facility] SKILL 5 HOME HOME [facility]SE [facility] HEALTH SERVICES AGENCY AGENCY HH/HOSPIC E EA 15 MIN SERVICE G0151 [facility] HOME AGENCY AGENCY HLTH/HOSP ICE EA 15 MIN SERVICE G0151 [facility] HOME HOME [facility] HOME AGENCY AGENCY HLTH/HOSP ICE EA 15 MIN DIRECT G0154 [facility] SKILL 5 HOME HOME [facility] AGENCY AGENCY HH/HOSPIC E EA 15 MIN SERVICE G0151 [facility] HOME HOME [facility] HOME AGENCY AGENCY HLTH/HOSP ICE EA 15 MIN SERVICE G0151 [facility] 5 HOME HOME [facility] HOME AGENCY AGENCY HLTH/HOSP ICE EA 15 MIN SERVICE G0151 [facility] HOME HOME [facility] HOME AGENCY AGENCY HLTH/HOSP ICE EA 15 MIN DIRECT G0154 [facility] SK[facility] HOME [facility] AGENCY AGENCY HH/HOSPIC E EA 15 MIN ANESTHESI 50915 [facility] JUNIOR SULAIMAN A OPEN 5 LTH TOTAL HIP ANESTHESI A PSC ARTHROPLA STY RADEX HIP 02513 [place] RAYO 5 MEDICAL STEVO UNILATERA SERV L FOUNDATIO COMPLETE N MINIMUM 2 VIEWS RADIOLOGI 54418 [place] RAYO C 5 MEDICAL STEVO EXAMINATI SERV ON PELVIS FOUNDATIO 1/2 N VIEWS ARTHRP 99117 [place] ACETBLR/P 5 MEDICAL LETHA FEM SERV PROSTC FOUNDATIO AGRFT/ALG N RFT LEVEL III 65387 [facility] SURG 5 Y OF ANTOINE PATHOLOGY [facility] GROSS&YELITZA ROSCOPIC EXAM DECALCIFI 81119 [facility] Y OF ANTOINE PROCEDURE [facility] CHIROPRAC 01617 JUSTIN PAEZ TIC 5 N FAMILY JENNIFER MANIPULAT CHIROPRAC MARVA TX T SPINAL 3-4 REGIONS COMPRE 75863 [place] LANDIN AUDIOMETR 5 MEDICAL CHAD Y SERV THRESHOLD FOUNDATIO EVAL SP N RECOGNIJ TYMPANOME 41677 AKASH LANDIN TRY 5 MEDICAL CHAD SERV FOUNDATIO N SUSCEPTIB 55151 [facility] LTY STDY 5 Y Y ANTIMICRB [facility] IAL MICRO/AGA R DILUTJ CUL BACT 01441 [facility] AEROBIC 5 Y Y ADDL [facility] METHS DEFINITIV E EA ISOL CULTURE 72765 [facility] BACTERIAL 5 Y Y [facility] QUANTTATI VE COLONY COUNT URINE URNLS DIP 72200 [facility] 5 Y Y STICK/TAB [facility] LET REAGENT AUTO MICROSCOP Y BASIC 42999 [facility] METABOLIC 5 Y Y PANEL [facility] CALCIUM TOTAL COLLECTIO 88270 [facility] N VENOUS Y Y BLOOD [facility] VENIPUNCT URE CHIROPRAC 08923 [employer] TIC 5 N FAMILY JENNIFER MANIPULAT CHIROPRAC [place] T SPINAL 3-4 REGIONS CHIROPRAC 92652 [facility] [employer] TIC 5 N FAMILY JENNIFER MANIPULAT CHIROPRAC [place] T SPINAL 3-4 REGIONS CHIROPRAC 38682 [employer] TIC 5 N FAMILY JENNIFER MANIPULAT CHIROPRAC [place] TX T SPINAL 3-4 REGIONS CHIROPRAC 39503 [facility] [employer] TIC 5 N FAMILY JENNIFER MANIPULAT CHIROPRAC [place] TX T SPINAL 3-4 REGIONS INJECTION J2250 [facility] UNIVERS 5 Y Y MIDAZOLAM [facility] HCL PER 1 MG INJECTION J3010 [facility] FENTANYL 5 Y Y CITRATE [facility] 0.1 MG BASIC 14865 [facility] METABOLIC 5 Y Y PANEL [facility] CALCIUM TOTAL INJECTION J1644 [facility] HEPARIN 5 Y Y SODIUM [facility] PER 1000 UNITS CATH 83491 [facility] PLACEMENT 5 Y Y & NJX [facility] CORONARY ART ANGIO IMG S&I GUIDE C1769 [facility] WIRE 5 Y Y HOSPITAL [facility] BLOOD 66127 [facility] COUNT 5 Y Y COMPLETE [facility] AUTOMATED CATHETER C1887 [facility] GUIDING 5 Y Y HOSPITAL HOSPITAL INTRDUCR/ C1894 [facility] SHEATH 5 Y Y NOT GUID [facility] INTRACARD EP NON-LASR LOCM Q9967 [facility] [phone] 5 Y Y MG/ML HOSPITAL HOSPITAL IODINE CONCENTRA TION PER ML APPL 66862 GIORGIOGLADISMarivel BARNESAXEL MODALITY 5 N FAMILY ANDREW 1/> AREAS CHIROPRAC TRACTION T MECHANICA L CHIROPRAC 46795 GIORGIOZUNILDA REYNA TIC 5 N FAMILY ANDREW MANIPULAT CHIROPRAC [place] T SPINAL 3-4 REGIONS THERAPEUT 62837 JUSTIN REYNA IC PX 1/> 5 N FAMILY ANDREW AREAS CHIROPRAC EACH 15 T MIN EXERCISES ECHO 50901 AKASH ENAMORADO JEN TTHRC R-T 5 MEDICAL 2D W/WO SERV M-MODE FOUNDATIO REST&STRS N CONT ECG CV STRS 65630 [facility] TST 5 Y Y XERS&/OR HOSPITAL HOSPITAL RX CONT ECG TRCG ONLY APPL 43682 JUSTIN PAEZ MODALITY 5 N FAMILY JENNIFER 1/> AREAS CHIROPRAC TRACTION T MECHANICA L THERAPEUT 64625 JUSTIN PAEZ IC PX 1/> 5 N FAMILY JENNIFER AREAS CHIROPRAC EACH 15 T MIN EXERCISES CHIROPRAC 58309 JUSTIN PAEZ TIC 5 N FAMILY JENNIFER MANIPULAT CHIROPRAC [place] T SPINAL 3-4 REGIONS APPL 48492 JUSTIN PAEZ MODALITY 5 N FAMILY JENNIFER 1/> AREAS CHIROPRAC ELEC T STIMJ UNATTENDE D THERAPEUT 77814 JUSTIN PAEZ IC PX 1/> 5 N FAMILY JENNIFER AREAS CHIROPRAC EACH 15 T MIN EXERCISES CHIROPRAC 00174 JUSTIN PAEZ TIC 5 N FAMILY JENNIFER MANIPULAT CHIROPRAC [place] T SPINAL 3-4 REGIONS APPL 46051 JUSTIN PAEZ MODALITY 5 N FAMILY JENNIFER 1/> AREAS CHIROPRAC TRACTION T MECHANICA L CHIROPRAC 70889 JUSTIN PAEZ TIC 5 N FAMILY JENNIFER MANIPULAT CHIROPRAC [place] TX T SPINAL 3-4 REGIONS RADEX HIP 75051 AKASH POLLACK JAM 5 MEDICAL UNILATERA SERV L FOUNDATIO COMPLETE N MINIMUM 2 VIEWS BASIC 79371 [facility] METABOLIC 5 Y Y PANEL [facility] CALCIUM TOTAL RADEX HIP 63287 [facility] 5 N N UNILATERA COMMUNITY COMMUNITY L HOSPITA HOSPITA COMPLETE MINIM[place] 2 [place] [address] [facility] MAGNESIUM 4 N N [place] [address] [facility] TROPONIN 4 N N QUANTITAT [facility] HOSPITA HOSPITA BLOOD 79288 [facility] COUNT 4 N N COMPLETE [facility] AUTO&AUTO HOSPITA HOSPITA DIFRNTL WBC RADIOLOGI 77134 [facility] C 4 N N EXAMINATI [facility] ON CHEST HOSPITA HOSPITA SINGLE VIEW FRONTAL ECG 02054 [facility] ROUTINE 4 N N ECG [facility] W/LEAST HOSPITA HOSPITA 12 LDS TRCG ONLY W/O I&R ECG 84385 PUND CHR PUND CHR ROUTINE 4 ECG W/LEAST 12 LDS I&R ONLY COLLECTIO 70715 [facility] N VENOUS 4 N N BLOOD [facility] VENIPUNCT HOSPITA HOSPITA URE COMPREHEN 12419 [facility] SIVE 4 N N METABOLIC [facility] PANEL HOSPITA HOSPITA COMPUTER- 41433 [place] DELL CAR AIDED 4 MEDICAL DETECTION SERV DX FOUNDATIO MAMMOGRAP N HY DIAGNOSTI G0206 [facility] 4 Y Y [facility] HY INCL CAD WHEN PERF; UNI AMB A0427 [facility] SERVICE 4 AAMIR RUTLEDGE ALS CO EMS CO EMS EMERGENCY TRANSPORT LEVEL 1 GROUND A0425 [facility] MILEAGE 4 AAMIR RUTLEDGE PER CO EMS CO EMS STATUTE MILE ECG 77720 [place] SIGALA ROUTINE 4 MEDICAL NAN ECG SERV W/LEAST FOUNDATIO 12 LDS N I&R ONLY RADIOLOGI 27423 [place] TRUE GEOFF C 4 MEDICAL EXAMINATI SERV ON CHEST FOUNDATIO SINGLE N VIEW FRONTAL MRI BRAIN 32179 [facility] BRAIN 4 Y Y STEM W/O HOSPITAL HOSPITAL W/CONTRAS T MATERIAL ELECTROEN 82210 [place] KARO JEN CEPHALOGR 4 MEDICAL AM EXTND SERV MNTR >1 FOUNDATIO HR N ELECTROEN 81447 [facility] CEPHALOGR 4 Y Y AM W/REC HOSPITAL HOSPITAL AWAKE&ASL EEP INJECTION A9585 [facility] 4 Y Y GADOBUTRO [facility] L 0.1 ML CREATININ 58071 [facility] E BLOOD 4 Y Y [facility] CHIROPRAC 26664 [facility] JEANNINE TIC 4 N FAMILY JENNIFER MANIPULAT CHIROPRAC [place] T SPINAL 3-4 REGIONS SCREENING G0202 [facility] 4 Y Y [facility] HY CAROLYN INCL CAD WHEN PERFORMD COMPUTER- 56136 [facility] 4 Y Y DETECTION [facility] SCREENING MAMMOGRAP HY GROUND A0425 [facility] MILEAGE 4 Yolanda-LAUREEN Guerrero-LAUREEN PER CO EMS CO EMS STATUTE MILE AMBULANCE A0429 [facility] SERVICE 4 N-LAUREEN Guerrero-LAUREEN BLS CO EMS CO EMS EMERGENCY TRANSPORT CHIROPRAC 48154 [facility] JEANNINE TIC 4 N FAMILY JENNIFER MANIPULAT CHIROPRAC [place] T SPINAL 3-4 REGIONS LEVEL III 79612 [facility] SURG 4 Y OF DANY PATHOLOGY [facility] GROSS&YELITZA ROSCOPIC EXAM LAPAROSCO 62375 [place] LEELA PY SURG 4 MEDICAL DEANNA CHOLECYST SERV ECTOMY FOUNDATIO N ANES 16598 [place] DORITY INTRAPERI 4 MEDICAL KRISTINA TONEAL SERV UPPER FOUNDATIO ABDOMEN W/LAPS NOS APPL 71976 [facility] JEANNINE MODALITY 4 N FAMILY JENNIFER 1/> AREAS CHIROPRAC TRACTION T MECHANICA L CHIROPRAC 93222 [facility] TIC 4 N FAMILY N FAMILY MANIPULAT CHIROPRAC CHIROPRAC [place] T T SPINAL 3-4 REGIONS THERAPEUT 71777 JUSTIN PAEZ IC PX 1/> 4 N FAMILY JENNIFER AREAS CHIROPRAC EACH 15 T MIN EXERCISES APPL 32986 JUSTIN JEANNINE MODALITY 4 N FAMILY JENNIFER 1/> AREAS CHIROPRAC ELEC T STIMJ UNATTENDE D RADIOLOGI 46239 [place] MONTGOMER C 4 MEDICAL Y JUS EXAMINATI SERV ON PELVIS FOUNDATIO 1/2 VIEWS RADEX HIP 79214 [place] MONTGOMER 4 MEDICAL Y JUS UNILATERA SERV L FOUNDATIO COMPLETE MINIMUM 2 VIEWS RADIOLOGI 59713 [place] SANCHEZ JEN C EXAM 4 MEDICAL CHEST 2 SERV VIEWS FOUNDATIO FRONTAL&L ATERAL CHIROPRAC 27323 GIORGIOGLADISMarivel JEANNINE TIC 4 N FAMILY JENNIFER MANIPULAT CHIROPRAC [place] T SPINAL 3-[address] [place] [address] [place] NICKELS ABDOMEN & 4 MEDICAL NIKKIE PELVIS SERV W/CONTRAS FOUNDATIO T MATERIAL ECG 44646 [place] SIGALA ROUTINE 4 MEDICAL NAN ECG SERV W/LEAST FOUNDATIO 12 LDS N I&[place] [address] [place] MEDINA RAMY EXTREMITY 4 MEDICAL NON-VASC SERV FOUNDATIO REAL-TIME IMG LMTD LOC Q9967 [facility] 300-399 4 Y Y MG/ML [facility] HOSPITAL IODINE CONCENTRA TION PER ML APPL 50196 JUSTIN PAEZ MODALITY 4 N FAMILY JENNIFER 1/> AREAS CHIROPRAC ELEC T STIMJ UNATTENDE D THERAPEUT 00924 JUSTIN PAEZ IC PX 1/> 4 N FAMILY JENNIFER AREAS CHIROPRAC EACH 15 T MIN EXERCISES CHIROPRAC 40954 JUSTIN PAZE TIC 4 N FAMILY JENNIFER MANIPULAT CHIROPRAC [place] T SPINAL 3-4 REGIONS APPL 68365 JUSTIN PAEZ MODALITY 4 N FAMILY JENNIFER 1/> AREAS CHIROPRAC TRACTION T MECHANICA L APPL 65595 JUSTIN JEANNINE MODALITY 4 N FAMILY JENNIFER 1/> AREAS CHIROPRAC TRACTION T MECHANICA L CHIROPRAC 60292 JUSTIN PAEZ TIC 4 N FAMILY JENNIFER MANIPULAT CHIROPRAC [place] T SPINAL 3-4 REGIONS THERAPEUT 50759 GIORGIOTOMarivel JEANNINE IC PX 1/> 4 N FAMILY JENNIFER AREAS CHIROPRAC EACH 15 T MIN EXERCISES APPL 21257 GIORGIOTOW JEANNINE MODALITY 4 N FAMILY JENNIFER 1/> AREAS CHIROPRAC T ULTRASOUN D EA 15 MIN APPL 83630 GIORGIOTOMarivel JEANNINE MODALITY 4 N FAMILY JENNIFER 1/> AREAS CHIROPRAC ELEC T STIMJ UNATTENDE D APPL 84387 [facility] JEANNINE MODALITY 4 N FAMILY JENNIFER 1/> AREAS CHIROPRAC ELEC T STIMJ UNATTENDE D THERAPEUT 70554 JUSTIN JEANNINE IC PX 1/> 4 N FAMILY JENNIFER AREAS CHIROPRAC EACH 15 T MIN EXERCISES CHIROPRAC 53394 GIORGIOMarivel JEANNINE TIC 4 N FAMILY JENNIFER MANIPULAT CHIROPRAC [place] T SPINAL 3-4 REGIONS APPL 98257 [place] JEANNINE MODALITY 4 N FAMILY JENNIFER 1/> AREAS CHIROPRAC TRACTION T MECHANICA L GROUND A0425 [facility] MILEA 4 Yolanda-LAUREEN FRENCH CO EMS CO EMS STATUTE MILE AMBULANCE A0429 [facility] SERVICE 4 Yolanda-LAUREEN IVERSON CO EMS CO EMS EMERGENCY TRANSPORT APPL 92582 [facility] JEANNINE MODALITY 4 N FAMILY JENNIFER 1/> AREAS CHIROPRAC ELEC T STIMJ UNATTENDE D APPL 06885 GIORGIOMarivel JEANNINE MODALITY 4 N FAMILY JENNIFER 1/> AREAS CHIROPRAC TRACTION T MECHANICA L CHIROPRAC 24168 JUSTIN JEANNINE TIC 4 N FAMILY JENNIFER MANIPULAT CHIROPRAC [place] T SPINAL 3-4 REGIONS THERAPEUT 25965 JUSTIN JEANNINE IC PX 1/> 4 N FAMILY JENNIFER AREAS CHIROPRAC EACH 15 T MIN EXERCISES THERAPEUT 62651 GIORGIOTOW JEANNINE IC PX 1/> 4 N FAMILY JENNIFER AREAS CHIROPRAC EACH 15 T MIN EXERCISES CHIROPRAC 92256 JUSTIN JEANNINE TIC 4 N FAMILY JENNIFER MANIPULAT CHIROPRAC [place] T SPINAL 3-4 REGIONS APPL 49525 JUSTIN PAEZ MODALITY 4 N FAMILY JENNIFER 1/> AREAS CHIROPRAC TRACTION T MECHANICA L APPL 67605 JUSTIN PAEZ MODALITY 4 N FAMILY JENNIFER 1/> AREAS CHIROPRAC ELEC T STIMJ UNATTENDE D APPL 74484 JUSTIN JEANNINE MODALITY 4 N FAMILY JENNIFER 1/> AREAS CHIROPRAC ELEC T STIMJ UNATTENDE D APPL 42404 JUSTIN PAEZ MODALITY 4 N FAMILY JENNIFER 1/> AREAS CHIROPRAC TRACTION T MECHANICA L THERAPEUT 83980 JUSTIN APEZ IC PX 1/> 4 N FAMILY JENNIFER AREAS CHIROPRAC EACH 15 T MIN EXERCISES CHIROPRAC 46932 JUSTIN PAEZ TIC 4 N FAMILY JENNIFER MANIPULAT CHIROPRAC [place] T SPINAL 3-4 REGIONS THERAPEUT 68263 JUSTIN PAEZ IC PX 1/> 4 N FAMILY JENNIFER AREAS CHIROPRAC EACH 15 T MIN EXERCISES CHIROPRAC 06388 JUSTIN PAEZ TIC 4 N FAMILY JENNIFER MANIPULAT CHIROPRAC [place] T SPINAL 3-4 REGIONS APPL 81548 JUSTIN PAEZ MODALITY 4 N FAMILY JENNIFER 1/> AREAS CHIROPRAC TRACTION T MECHANICA L RADEX HIP 45646 [place] TREMAYNE 4 MEDICAL SUMMER UNILATERA SERV L FOUNDATIO COMPLETE MINIMUM 2 VIEWS APPL 15736 JUSTIN PAEZ MODALITY 4 N FAMILY JENNIFER 1/> AREAS CHIROPRAC ELEC T STIMJ UNATTENDE D CHIROPRAC 26908 JUSTIN MORALES KRISTINA TIC 4 N FAMILY MANIPULAT CHIROPRAC [place] T SPINAL 3-4 REGIONS CHIROPRAC 91160 MAIKOLMarivel FERRARA KRISTINA TIC 4 N FAMILY MANIPULAT CHIROPRAC [place] T SPINAL 3-4 REGIONS THERAPEUT 82130 JUSTIN MORALES KRISTINA IC PX 1/> 4 N FAMILY AREAS CHIROPRAC EACH 15 T MIN EXERCISES APPL 91564 JUSTIN FERRARA KRISTINA MODALITY 4 N FAMILY 1/> AREAS CHIROPRAC TRACTION T MECHANICA L APPL 67514 JUSTIN ACEVEDO MODALITY 4 N FAMILY 1/> AREAS CHIROPRAC ELEC T STIMJ UNATTENDE D APPL 91598 JUSTIN PAEZ MODALITY 4 N FAMILY JENNIFER 1/> AREAS CHIROPRAC ELEC T STIMJ UNATTENDE D APPL 19919 JUSTIN PAEZ MODALITY 4 N FAMILY JENNIFER 1/> AREAS CHIROPRAC TRACTION T MECHANICA L THERAPEUT 97221 JUSTIN PAEZ IC PX 1/> 4 N FAMILY JENNIFER AREAS CHIROPRAC EACH 15 T MIN EXERCISES CHIROPRAC 07061 JUSTIN PAEZ TIC 4 N FAMILY JENNIFER MANIPULAT CHIROPRAC [place] T SPINAL 3-4 REGIONS CHIROPRAC 82149 JUSTIN PAEZ TIC 4 N FAMILY JENNIFER MANIPULAT CHIROPRAC [place] T SPINAL 3-4 REGIONS THERAPEUT 37110 JUSTIN PAEZ IC PX 1/> 4 N FAMILY JENNIFER AREAS CHIROPRAC EACH 15 T MIN EXERCISES CHIROPRAC 54551 JUSTIN PAEZ TIC 4 N FAMILY JENNIFER MANIPULAT CHIROPRAC [place] T SPINAL 3-4 REGIONS APPL 13359 JUSTIN PAEZ MODALITY 4 N FAMILY JENNIFER 1/> AREAS CHIROPRAC TRACTION T MECHANICA L APPL 78337 JUSTIN PAEZ MODALITY 4 N FAMILY JENNIFER 1/> AREAS CHIROPRAC ELEC T STIMJ UNATTENDE D CHIROPRAC 95745 JUSTIN PAEZ TIC 4 N FAMILY JENNIFER MANIPULAT CHIROPRAC [place] T SPINAL 3-4 REGIONS CHIROPRAC 93873 GIORGIOMarivel ANDERSON TIC 4 N FAMILY N FAMILY MANIPULAT CHIROPRAC CHIROPRAC [place] T T SPINAL 3-4 REGIONS CHIROPRAC 32491 JUSTIN PAEZ TIC 4 N FAMILY JENNIFER MANIPULAT CHIROPRAC [place] T SPINAL 3-4 REGIONS CHIROPRAC 66094 JUSTIN PAEZ TIC 4 N FAMILY JENNIFER MANIPULAT CHIROPRAC [place] T SPINAL 3-4 REGIONS CHIROPRAC 70218 JUSTIN PAEZ TIC 4 N FAMILY JENNIFER MANIPULAT CHIROPRAC [place] T SPINAL 3-4 REGIONS CHIROPRAC 16553 [facility] JUSTIN TIC 4 N FAMILY N FAMILY MANIPULAT CHIROPRAC CHIROPRAC [place] T T SPINAL 3-4 REGIONS CHIROPRAC 33055 [facility] JEANNINE TIC 4 N FAMILY JENNIFER MANIPULAT CHIROPRAC [place] T SPINAL 3-4 REGIONS CHIROPRAC 21441 [facility] JEANNINE TIC 4 N FAMILY JENNFIER MANIPULAT CHIROPRAC [place] T SPINAL 3-4 REGIONS CHIROPRAC 59419 [facility] JEANNINE TIC 4 N FAMILY JENNIFER MANIPULAT CHIROPRAC [place] T SPINAL 3-4 REGIONS CHIROPRAC 48289 [facility] JEANNINE TIC 4 N FAMILY JENNIFER MANIPULAT CHIROPRAC [place] T SPINAL 3-4 REGIONS RADEX 15379 [facility] JEANNINE SPINE 4 N FAMILY JENNIFER LUMBOSACR CHIROPRAC AL 2/3 T VIEWS RADEX 43929 [facility] JEANNINE SPINE 4 N FAMILY JENNIFER CERVICAL CHIROPRAC 2 OR 3 T VIEWS RADIOLOGI 06211 [facility] CEJA C 4 RADIOLOGY ANITA EXAMINATI ASSOC ON CHEST SINGLE VIEW FRONTAL RADEX HIP 78222 [facility] ANDREWS 4 RADIOLOGY III JAM UNILATERA ASSOC L COMPLETE MINIMUM 2 VIEWS RADIOLOGI 34235 [facility] AND[facility] C 4 RADIOLOGY III JAM EXAMINATI ASSOC ON PELVIS 1/[address] THORAX 42911 [place] SANCHEZ JEN W/O 4 MEDICAL CONTRAST SERV MATERIAL FOUNDATIO N CATARACT 63150 [place] CAPOOR REMOVAL 4 MEDICAL SEE INSERTION SERV OF LENS FOUNDATIO ANESTHESI 92693 [place] ROZINA A EYE 4 MEDICAL JESSEE LENS SERVICES SURGERY IAADIADOO 17460 [facility] RABIEE 4 N URGENT [place] [address] [place] AYOOB AND ABDOMEN & 4 MEDICAL PELVIS SERV W/O FOUNDATIO CONTRAST N MATERIAL ECG 61323 [place] KACI CHI ROUTINE 4 MEDICAL ECG SERV W/LEAST FOUNDATIO 12 LDS N I&R ONLY INJECTION [id number] [place] [address] Y Y [facility] LONE ACETONIDE NOS 10 MG ARTHROCEN 28598 [facility] 4 Y Y ASPIR&/IN HOSPITAL HOSPITAL J MAJOR JT/BURSA W/O US OPHTH 94601 AKASH SMITH MEDICAL 4 MEDICAL SEE XM&EVAL SERV COMPRHNSV FOUNDATIO ESTAB PT 1/> OPH BMTRY 42871 AKASH SMITH US 4 MEDICAL SEE ECHOGRAPY SERV A-SCAN FOUNDATIO IO LENS PWR IBIS COMPUTERI 27687 AKASH SMITH ZED 4 MEDICAL SEE OPHTHALMI SERV C IMAGING FOUNDATIO OPTIC NERVE RADIOLOGI 32802 AKASH PARVEEN Uribe 4 MEDICAL KRISTINA EXAMINATI SERV ON CHEST FOUNDATIO SINGLE VIEW FRONTAL RADEX HIP 72937 AKASH PARVEEN 4 MEDICAL KRISTINA UNILATERA SERV L FOUNDATIO COMPLETE N MINIMUM 2 VIEWS ECG 47527 AKASH TAVON KEAGAN ROUTINE 4 MEDICAL ECG SERV W/LEAST FOUNDATIO 12 LDS N I&R ONLY Encounters Encounter Start End Date Code Location Performer Type Date OFFICE 23444 [facility] SURINDER JR OUTPATI 7 7 [facility]YSICIAN T [facility] - 7 7 [facility] [facility] - 7 7 [facility] T EMERGENC[facility] 38250 PHIL BERGER 7 7 PHYSICIAN JR [facility] HIGH/URGE NT SEVERITY EMERGENCY 27649 [facility]OMEO 7 7 [facility] T VISIT LOW/MODER SEVERITY EMERGENCY 26915 PHIL MUÑIZ DEPT 7 7 PHYSICIAN VISIT S, PLLC HIGH SEVERITY& THREAT [facility] - 6 6 Y OUTPATI HOSPITAL T EMERGENCY 08794 [facility] 6 6 Y [facility] T VISIT MODERATE SEVERITY OFFICE 98216 AKASH HOLMAN OUTPATI 6 6 MEDICAL T VISIT SERV 25 FOUNDATIO MINUTES N HOSPITAL UN[facility]ERSIT - 6 6 Y OUTPATI HOSPITAL T EMERGENCY 22541 CELLAROSI CELLAROSI 6 6 - YORBA - [facility] PAT PAT T VISIT MODERATE SEVERITY EMERGENCY 13229 [facility] 6 6 N [facility] COMM[facility] T VISIT HOSPITA LIMITED/M INOR [facility] 6 6 N OUTPATIEN COMMUNTIY T HOSPCAPE [facility] 6 6 N OUTPATIEN COMMUNTIY T HOSPITA EMERGENCY 17964 [facility] 6 6 N [facility] T VISIT HOSPITA MODERATE SEVERITY OFFICE 23608 [facility] 6 6 [place] VIS[place] PHYSICIAN 15 S ASSIST [facility] 6 6 [facility] OFF[facility] 67560 [facility] 6 6 Y T VISIT 5 HOSPITAL [facility] 6 6 [facility] 58309 [facility] 6 6 MONI K[facility]EN [facility] EM[facility]GENC[facility] ANDREW T VISIT SERVI MODERATE SEVERITY HOSPITAL [facility] - 6 6 N OUTPATIEN COMMUNTIY T HOSPCAPE [facility] 6 6 N OUTPATIEN COMMUNTIY T HOSPITA EMERGENCY 97815 [facility] 6 6 MONI DEANNA DEPARTMEN EMERGENCY T VISIT SERVI MODERATE SEVERITY EMERGENCY 86094 MICHAEL RODRIGUEZ 6 6 STEVO STEVO DEPARTMEN T VISIT HIGH/URGE NT SEVERITY EMERGENCY 20403 [facility] 6 6 N [facility] T VISIT HOSPITA MODERATE SEVERITY HOSPITAL [facility] - 6 6 N OUTPATIEN COMMUNTIY T HOSPITA EMERGENCY 91909 AKASH ROBER 6 6 MEDICAL KARLI [facility] SERV T VISIT FOUNDATIO HIGH/URGE N NT SEVERITY HOSPITAL [facility] 6 6 [facility] 12026 [facility] 6 6 Y [facility] T VISIT MODERATE SEVERITY HOSPITAL [facility] - 6 6 [facility]GENC[facility] 12380 [facility] 6 6 Y [facility] T VISIT HIGH/URGE NT SEVERITY EMERGENCY 39037 ANN ANN 6 6 MON MON [facility] T VISIT MODERATE SEVERITY OFFICE 63806 [facility] 6 6 [place] FAMILY I DAYAN T VISIT MEDICINE 25 P MINUTES OFFICE 22449 [place] [facility] 6 6 MEDICAL T VISIT SERV 15 FOUNDATIO MINUTES N OFFICE 69301 [facility] 6 6 Y T VISIT 5 HOSPITAL [facility] UNIVERSIT - 6 6 Y [facility] T EMERGENCY 20692 [facility] 6 6 N [facility] T VISIT HOSPITA HIGH/URGE NT SEVERITY EMERGENCY 70568 [facility] 6 6 N [facility] COMM[facility] T VISIT HOSPITA MODERATE SEVERITY HOSPITAL [facility] - 6 6 N OUTPATIEN COMMUNTIY T HOSPITA EMERGENCY 43997 MECCARIEL MECCARIEL 6 6 LO TRA LO TRA [facility] H[facility]URGE NT SEVERITY HOSPITAL [facility] - 6 6 N OUTPATIEN COMMUNTIY T HOSPITA EMERGENCY 89031 MICHAEL RODRIGUEZ 6 6 STEVO STEVO DEPARTMEN T VISIT MODERATE SEVERITY HOSPITAL [facility] - 6 6 N OUTPATIEN COMMUNTIY T HOSPITA EMERGENCY 09249 [facility] [address] [facility]ISIT HOSPITA HIGH/URGE NT SEVERITY HOSPITAL [facility] - 6 6 N OUTPATIEN COMMUNTIY T HOSPITA EMERGENCY 80328 [facility] 6 6 N [facility] MODERATE SEVERITY HOSPITAL [facility] 6 6 N OUTPATIEN COMMUNTIY T HOSPITA EMERGENCY 42934 [facility] 6 6 N [facility]ITA MODERATE SEVERITY HOSPITAL [facility] - 6 6 N OUTPATIEN COMMUNTIY T HOSPITA EMERGENCY 87492 [facility] 6 6 [facility] T VISIT SERV HIGH/URGE NT SEVERITY HOSPITAL [facility] - 6 6 Y [facility] 19419 UNIVERSIT 6 6 Y [facility] T VISIT HIGH/URGE NT SEVERITY EMERGENCY 75692 AKASH LUKEMOREIRA 6 6 MEDICAL YELITZA DEPARTMEN SERV T VISIT FOUNDATIO MODERATE N SEVERITY HOSPITAL [facility] - 6 6 Y [facility] 80091 TOLU UBI SOB OUTPATI 6 [address], [facility] H[facility]PITAL UN[facility]ERS[facility] 5 5 Y [facility] T EMERGENCY 23636 AKASH HIDALGO 5 5 MEDICAL IRIS DEPARTMEN SERV T VISIT FOUNDATIO HIGH/URGE N NT SEVERITY EMERGENCY 32431 CENTRAL WHITE 5 5 EMERGENCY RAC [facility] PHYS PSC T VISIT HIGH/URGE NT SEVERITY EMERGENCY 18416 CENTRAL 5 5 VOODOO [facility] H[facility] T VISIT MODERATE SEVERITY HOSPITAL C[facility]AL - 5 5 [facility] T OFF[facility] 25304 [facility] 5 5 [place] RANJEET T VISIT MEDICINE 25 P MINUTES EMERGENCY 90831 UNIVERSIT 5 5 Y [facility] T VISIT HIGH/URGE NT SEVERITY HOSPITAL [facility] - 5 5 Y [facility] OFF[facility] 33964 [facility] 5 5 [place] CAT T VISIT MEDICINE 15 P MINUTES EMERGENCY 33124 UNIVERSIT 5 5 Y [facility] T VISIT MODERATE SEVERITY HOSPITAL UNIVERSIT - 5 5 Y [facility]OSP[facility] T EMERGENCY 71829 [place] ROBER 5 5 MEDICAL KARLI DEPARTMEN SERV T VISIT FOUNDATIO HIGH/URGE N NT SEVERITY HOSPITAL UNIVERSIT - 5 5 Y [facility]OSP[facility] T EMERGENCY 16832 UNIVERSIT DEPT 5 5 Y VISIT HOSPITAL HIGH SEVERITY& THREAT [facility] - 5 5 Y [facility] T EMERGENCY 25462 [facility] DEPT 5 5 BRO BRO VISIT HIGH SEVERITY& THREAT [facility] OFFICE 73936 JUSTIN TEJEDA CONSULTAT 5 5 N MICHAEL ION CARDIOLOG NEW/ESTAB Y PATIENT 60 MIN EMERGENCY 56615 AKASH GARCIA JR 5 5 MEDICAL JEANETTE DEPARTMEN SERV T VISIT FOUNDATIO MODERATE N SEVERITY HOSPITAL UNIVERSIT - 5 5 Y [facility] T EMERGENCY 32970 UNIVERSIT 5 5 Y [facility] T VISIT HIGH/URGE NT SEVERITY OFFICE 70538 [facility] 5 5 N FAMILY JENNIFER T VISIT CHIROPRAC 10 T MINUTES EMERGENCY 86401 AKASH ROCKY 5 5 MEDICAL IRIS DEPARTMEN SERV T VISIT FOUNDATIO MODERATE N SEVERITY HOSPITAL UNIVERSIT - 5 5 Y [facility] T OFFICE 76462 [facility] DIA [facility] 5 5 N URGENT ABD T VISIT CARE 15 MINUTES OFFICE 34070 [facility] 5 5 Y T VISIT 5 HOSPITAL MINUTES OFFICE 55425 AKASH LANDIN [facility] 5 5 MEDICAL CHAD T VISIT SERV 10 FOUNDATIO MINUTES N HOSPITAL UNIVERSIT - 5 5 Y [facility] T OFFICE 44287 AKASH STANLEY [facility] 5 5 MEDICAL MAR T VISIT SERV 15 FOUNDATIO MINUTES N OFFICE 51633 [facility] 5 5 MEDICAL WAL T VISIT SERV 10 FOUNDATIO MINUTES N OFFICE 12013 [facility] 5 5 [place] FAM[place] ELL T VISIT MEDICINE 15 P MINUTES EMERGENCY 81280 UNIVERSIT 5 5 Y [facility] T VISIT MODERATE SEVERITY EMERGENCY 34272 AKASH ROCKY 5 5 MEDICAL IRIS DEPARTMEN SERV T VISIT FOUNDATIO HIGH/URGE N NT SEVERITY HOSPITAL UNIVERSIT - 5 5 Y [facility] T OFFICE 76090 [facility] 5 5 MEDICAL WAL T VISIT SERV 15 FOUNDATIO MINUTES N HOSPITAL UNIVERSIT - 5 5 Y [facility] T OFFICE 72929 AKASH LANDIN [facility] 5 5 MEDICAL CHAD T VISIT SERV 15 FOUNDATIO MINUTES N HOME [facility], 5 5 HOME INPATIENT HEALTH AGENCY OFFICE 30129 AKASH SMITH [facility] 5 5 MEDICAL SEE T VISIT SERV 15 FOUNDATIO MINUTES N HOME [facility], 5 5 HOME INPATIENT HEALTH AGENCY OFFICE 46821 AKASH LANDIN [facility] 5 5 MEDICAL CHAD T NEW 20 SERV MINUTES FOUNDATIO N OFFICE 51013 [facility] OUTPAT[facility] 5 5 [place] FAM[place] T VISIT MEDICINE 15 P MINUTES HOSPITAL UNIVERSIT - 5 5 Y [facility] T OFFICE 76298 [facility] CALL[facility] 5 5 MONI III JEANETTE ION PHYSICIAN NEW/ESTAB SERVI PATIENT 60 MIN HOSPITAL UNIVERSIT - 5 5 Y [facility] UNIVERSIT - 5 5 Y [facility] T OFFICE 26057 GIORGIOMarivel PAEZ [facility] 5 5 N FAMILY JENNIFER T VISIT CHIROPRAC 10 T MINUTES OFFICE 53071 [facility] 5 5 [place] JAYDEN T VISIT MEDICINE 15 P [facility] UNIVERSIT - 5 5 Y [facility] T EMERGENCY 69316 AKASH BAKER 5 5 MEDICAL JIN DEPARTMEN SERV T VISIT FOUNDATIO MODERATE N SEVERITY EMERGENCY 04256 UNIVERSIT 5 5 Y [facility] T VISIT HIGH/URGE NT SEVERITY OFFICE 11085 [facility] 5 5 Y T VISIT [facility] 40 [facility] UNIVERSIT [facility] 5 5 Y [facility] T OFFICE 53663 AKASH AVTAR HOLMAN [facility] 5 5 MEDICAL T VISIT SERV 15 FOUNDATIO MINUTES N OFFICE 63935 [facility]F DIEGOS [facility] 5 5 NURSE BREANNA T VISIT PRACTITIO [address] [facility] UNIVERSIT - 5 5 Y [facility] T OFFICE 53880 AKASH MARY KATE [facility] 5 5 MEDICAL JEANETTE T VISIT SERV 15 FOUNDATIO MINUTES N OFFICE 00674 [facility] 5 5 Y T VISIT HOSPITAL [facility] UNIVERSIT [facility] 5 5 Y [facility] 5 5 N [facility] HOSPITA EMERGENCY 52755 [facility] 5 5 N [facility] T VISIT HOSPITA MODERATE SEVERITY OFFICE 65528 [facility] 4 4 [place] FAMILY [place] DAYAN T VISIT MEDICINE 25 P MINUTES HOSPITAL [facility] 4 4 N [facility] T HOSPITA EMERGENCY 94589 [facility] DEPT 4 4 N VISIT COMMUNITY HIGH HOSPITA SEVERITY& THREAT FUNCJ EMERGENCY 00014 AKASH KUMARI 4 4 MEDICAL MAT DEPARTMEN SERV T VISIT FOUNDATIO MODERATE N SEVERITY EMERGENCY 50748 UNIVERSIT 4 4 Y [facility] T VISIT LOW/MODER SEVERITY HOSPITAL UNIVERSIT - 4 4 Y [facility] UNIVERSIT - 4 4 Y [facility] T OFFICE 24175 UNIV KELSEY [facility] 4 4 [place] FAM[place] ELL T VISIT MEDICINE 15 P MINUTES OFFICE 97400 [facility] 4 4 N URGENT ABD T VISIT CARE 15 MINUTES EMERGENCY 23467 AKASH KUMARI 4 4 MEDICAL MAT DEPARTMEN SERV T VISIT FOUNDATIO HIGH/URGE N NT SEVERITY HOSPITAL UNIVERSIT - 4 4 Y [facility] T OFFICE 04365 AKASH SMITH [facility] 4 4 MEDICAL SEE T VISIT SERV 15 FOUNDATIO MINUTES HOSPITAL UNIVERSIT [facility] 4 4 Y [facility] UNIVERSIT - 4 4 Y [facility] T OFFICE 57841 AKASH HARTMANN [facility] 4 4 MEDICAL JEANETTE T VISIT SERV 40 FOUNDATIO MINUTES N OFFICE 54570 UNIVERSIT OUTPATIEN 4 4 Y T VISIT 5 HOSPITAL MINUTES HOSPITAL [facility] - 4 4 [facility] 4 4 Y [facility] T EMERGENCY 55316 UNIVERSIT 4 4 Y [facility] T VISIT MODERATE SEVERITY EMERGENCY 75161 [place] SLOAS III 4 4 MEDICAL ALEX [facility] SERV T VISIT FOUNDATIO HIGH/URGE N NT SEVERITY OFFICE 66468 SUJATHA SUJATHA [facility] 4 4 CLI CLI T VISIT 15 MINUTES OFFICE 60930 MAIKOL JEANNINE [facility] 4 4 N FAMILY JENNIFER T VISIT CHIROPRAC 10 T MINUTES OFFICE 16156 [facility]KY [facility] 4 4 [place] FAM[place] ARC T VISIT MEDICINE 15 P MINUTES HOSPITAL UNIVERSIT - 4 4 Y [facility] T OFFICE 14503 [facility] 4 4 Y T VISIT 5 HOSPITAL MINUTES OFFICE 71889 UNIV STEVE DEANNA [facility] 4 4 [place] T VISIT MEDICINE 15 P MINUTES OFFICE 43194 UNIVERSIT OUTPATIEN 4 4 Y T VISIT 5 HOSPITAL MINUTES OFFICE 03897 [place] AVTAR HOLMAN OUTPATIEN 4 4 MEDICAL T VISIT SERV 15 FOUNDATIO MINUTES HOSPITAL [facility]ERS[facility] - 4 4 [facility]OSPITAL [facility] 4 4 Y [facility] T OFFICE 81588 AKASH WOODROW MORRIS OUTPATIEN 4 4 MEDICAL T VISIT SERV 15 FOUNDATIO MINUTES N OFFICE 36304 AKASH LEELA [facility] 4 4 MEDICAL DEANNA T VISIT SERV 25 FOUNDATIO MINUTES N OFFICE 65817 [place] JEANNINE [facility] 4 4 N FAMILY JENNIFER T VISIT CHIROPRAC 10 T MINUTES HOSPITAL UN[facility]ERSIT - 4 4 [facility] T EMERGENCY 49102 [place] BLUNT PANCHO 4 4 MEDICAL DEPARTMEN SERV T VISIT FOUNDATIO HIGH/URGE N NT SEVERITY HOSPITAL UNIVERSIT - 4 4 Y [employer] T OFFICE 74485 [facility] ROSI OUTPATIEN 4 4 [place] FAM[place] RANJEET T VISIT MEDICINE 15 P MINUTES OFFICE 11970 [facility] N FAMILY JENNIFER T VISIT CHIROPRAC 10 T MINUTES OFFICE 37665 VOODOO DANISH OUTPATIEN 4 4 NEUROLOGY [facility] MINUTES JONY OFFICE 93575 [facility] FAMILY JENNIFER T NEW CHIROPRAC MINUTES T HOSPITAL CENTRAL - 4 4 VOODOO OUTPATIEN HOSP T EMERGENCY 34369 [place] 4 4 VOODOO DEPARTMEN HOSP T VISIT MODERATE SEVERITY HOSPITAL CENTRAL - 4 4 VOODOO OUTPATIEN HOSP T EMERGENCY 37820 [facility] 4 4 EMERGENCY DEPARTMEN PHYS PSC T VISIT HIGH/URGE NT SEVERITY OFFICE 39672 [facility] ANDRIA OUTPATI 4 4 [place] FAMILY I DAYAN T VISIT MEDICINE 15 P MINUTES HOSPITAL UNIVERSIT - 4 4 Y [facility] T OFFICE 01101 AKASH WOODROW HAS OUTPATIEN 4 4 MEDICAL T VISIT SERV 15 FOUNDATIO MINUTES HOSPITAL UNIVERSIT - 4 4 Y [facility] T OFFICE 09525 [facility] MARTHA OUTPATIEN 4 4 N URGENT ABD T NEW CARE MINUTES OFFICE 00693 AKASH MUSE JR OUTPATIEN 4 4 MEDICAL SULAIMAN T VISIT SERV 25 FOUNDATIO MINUTES EMERGENCY 36060 AKASH JOHNSON 4 4 MEDICAL CAROLYN DEPARTMEN SERV T VISIT FOUNDATIO HIGH/URGE NT SEVERITY [facility] UNIVERS - 4 4 Y [facility] T OFFICE 68405 [place] [facility] 4 4 MEDICAL T V[facility]IT SERV 15 FOUNDATIO MINUTES [facility] 4 4 Y [facility] T OFFICE 33821 [facility] 4 4 [place] FAM[place] DAYAN T VISIT MEDICINE 15 P MINUTES EMERGENCY 05219 AKASH BAKER 4 4 MEDICAL JIN DEPARTMEN SERV T VISIT FOUNDATIO HIGH/URGE N NT SEVERITY
--- OUTSIDE RECORDS SUMMARY | 2017-05-18 05:53 | External Medical Summary Rpt | CCD ---
Author Author , COURTNEY Organization COURTNEY Address Unknown Phone [email or web address] Care Team Providers Care Secretary Administrative Assistant Name Role Phone SURINDER RIOS, SURINDER RIOS Unavailable Unavailable AMJAD SOB, AMJAD SOB Unavailable Unavailable [facility], [facility] Unavailable Unavailable [facility] Unavailable Unavailable [facility], [facility] SAHU BRO, SAHU Unavailable [...] Unavailable RANJEET BROADDUS BREANNA, Unavailable Unavailable BROADDUS RBEANNA [facility] Unavailable Unavailable SERVICE, [facility] Unavailable Unavailable SERVICE, [facility] WHITE RAC, WHITE Unavailable Unavailable RAC CAPOOR SEE, CAPOOR Unavailable Unavailable SEE CARDARELLI DAYAN, Unavailable Unavailable CARDARELLI DAYAN SUJATHA CLI, SUJATHA Unavailable Unavailable CLI SUJATHA CLI, SUJATHA Unavailable Unavailable CLI CELLAROSI - YORBA Unavailable Unavailable PAT, CELLAROSI - YORBA PAT CELLAROSI - YORBA Unavailable Unavailable PAT, CELLAROSI - YORBA PAT [facility], Unavailable Unavailable [facility] Unavailable Unavailable [facility], [...] Unavailable Unavailable JR ANTONINO MUÑIZ Unavailable Unavailable [facility] Unavailable [facility], [facility] Unavailable Unavailable HOSPITA, [facility] Unavailable Unavailable HOSPITA, [facility] Unavailable [facility]available [facility], [facility] Unavailable [facility]available [facility], [facility] Un[facility] Un[facility], [facility] Un[facility], [facility] LEELA DEANNA, LEELA Unavailable Unavailable DEANNA LANDIN CHAD, LANDIN Unavailable Unavailable CHAD MARY RHO, MARY Unavailable Unavailable RHO ARREAGA GEETHA, ARREAGA Unavailable Unavailable GEETHA [facility], Unavailable Unavailable [facility] Un[facility] Unavailable [facility], [facility] Unavailable [facility]available H[facility]PITAL P, [facility] Unavailable Unavailable [facility], Unavailable Unavailable [facility] SANCHEZ JEN, SANCHEZ JEN Unavailable Unavailable STANLEY MAR, STANLEY Unavailable Unavailable MAR TAVON KEAGAN, TAVON KEAGAN Unavailable Unavailable AXEL ANDREW, AXEL Unavailable Unavailable ANDREW ROZINA JESSEE, ROZINA Unavailable Unavailable JESSEE ROCKY IRIS, Unavailable Unavailable ROCKY IRIS CEJA ANITA, CEJA Unavailable Unavailable ROGER MATTHEWS III Unavailable Unavailable III [facility] Unavailable Unavailable [facility], [facility] KELLY TANYA, KELLY TANYA [...] Unavailable FARIDA JR, FARIDA JR Unavailable Unavailable [facility] Unavailable Unavailable CENTER, P, [facility], [facility], Unavailable Unavailable [facility], Unavailable Unavailable [facility] LUKINS KATI, LUKINS Unavailable Unavailable KATI ALEM KRISTINA, ALEM KRISTINA Unavailable Unavailable SAMY-CODY ANDREW, Unavailable Unavailable SAMY-CODY ANDREW [facility], Unavailable Unavailable [facility] Unavailable Unavailable [facility] TAPIA JUS, Unavailable Unavailable TAPIA JUS MUSE [...] MICHAEL TRUE GEOFF, TRUE GEOFF Unavailable Unavailable [facility] Unavailable Unavailable MEDICINE P, [facility] MEDICINE P [facility] Unavailable Unavailable ASSIST, [facility], [facility]available Unavailable [facility] Unavailable [facility] KANDICE BREANNA, KANDICE Unavailable Unavailable BREANNA VORKPOR PANCHO, VORKPOR Unavailable Unavailable PANCHO HARTMANN JEANETTE, HARTMANN Unavailable Unavailable JEANETTE [facility] Unavailable Unavailable [facility]ENC[facility], [facility] Unavailable Unavailable YOUNG JR REID, JOSE Unavailable Unavailable JR REID Purpose Continuity of Care Document - 09-11-2013 through 2016 Problems Code Diagnosis DOS Provider Status I10 ESSENTIAL 02-03-2017 [facility] PRIMARY PHYSICIANS HYPERTENSIO GROUP N I214 NON-ST 02-03-2017 [facility] ELEVATION PHYSICIANS MYOCARDIAL GROUP INFARCTION I509 HEART 02-03-2017 [facility] FAILURE PHYSICIANS UNSPECIFIED GROUP J811 CHRONIC 02-03-2017 [facility] PULMONARY PHYSICIANS EDEMA GROUP Z8679 PERSONAL 02-03-2017 [facility] HISTORY OT PHYSICIANS DISEASES GROUP CIRCULATORY SYSTEM E785 HYPERLIPIDE 02-02-2017 [facility] ORTIZ PHYSICIANS UNSPECIFIED GROUP E876 HYPOKALEMIA 02-02-2017 [facility] PHYSICIANS GROUP I110 HYPERTENSIV 02-02-2017 [facility] P WITH HEART FAILURE I517 CARDIOMEGAL 02-02-2017 [facility] ASS J90 PLEURAL 02-02-2017 [facility] EFFUSION MEDICAL NOT IMAGING ASS ELSEWHERE CLASSIFIED V17229 PAIN IN LEG 02-02-2017 [facility] UNSPECIFIED SERVICE R011 CARDIAC 02-02-2017 [facility] MURMUR PHYSICIANS UNSPECIFIED GROUP R079 CHEST PAIN 02-02-2017 [place] U[facility]PECIFIED MEDICAL IMAGING ASS R9431 ABNORMAL 02-02-2017 [facility] ELECTROCARD PHYSICIANS IOGRAM GROUP K641 SECOND 01-24-2017 [facility] DEGREE PHYSICIANS HEMORRHOIDS GROUP R69 ILLNESS 01-24-2017 [facility] UNSPECIFIED TRANSPORTAT ION SER W79381 ENCOUNTER 01-24-2017 [facility] P AL EXAMINATION Z800 FAMILY HX 01-24-2017 [facility] MALIGNANT PHYSICIANS NEOPLASM GROUP DIGESTIVE ORGANS E17844 PAIN IN 01-07-2017 [facility]IP [facility]ANCE SERVICE K55603 PAIN IN 01-07-2017 [facility] LEFT HIP PHYSICIANS, PLLC [id number] UNSPECIFIED 01-07-2017 [facility] INITIAL SERVICE ENCOUNTER N17467 PRESENCE OF 01-07-2017 [facility] LEFT MEDICAL ARTIFICIAL IMAGING ASS HIP JOINT R45231 PAIN IN 11-01-2016 [facility] SHOULDER SERVICE R4020 UNSPECIFIED 11-01-2016 [facility] COMA MEDICAL IMAGING ASS R410 DISORIENTAT 11-01-2016 [facility] PHYS[facility]IANS, UNSPECIFIED PLLC G8929 OTHER 02-20-2016 [facility] PAIN H5441 BLINDNESS 02-20-2016 [facility] EYE [facility] NORMAL VISION LEFT EYE 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 RIGHT HIP M7062 TROCHANTERI 01-19-2016 [facility] LEFT HIP Z09 ENC F/U 01-19-2016 [facility] EXAM AFTR SERV CMPL TX OTH FOUNDATION THAN MALIG NEOPLSM Z471 AFTERCARE 01-19-2016 [facility] FOLLOWING SERV JOINT FOUNDATION REPLACEMENT SURGERY [id number] PRESENCE OF 01-19-2016 [facility] UNSPECIFIED ARTIFICIAL HIP JOINT S61610 PAIN IN 12-09-2015 [facility] UNSPECIFIED [place] HIP EMS R1030 LOWER 12-09-2015 [facility] [place] ABDOMINAL RADIOLOGY PAIN UNSPECIFIED R208 OTHER 12-07-2015 [facility] DISTURBANCE COMMUNTIY S OF SKIN HOSPITA SENSATION R443 HALLUCINATI 12-07-2015 [facility] ONS [place] UNSPECIFIED EMS Z720 TOBACCO USE 12-07-2015 [facility] COMMUNTIY HOSPITA M542 CERVICALGIA 12-05-2015 [facility] [place] EMS [id number] PAIN IN 12-05-2015 [facility]- RIGHT LEG [place] [facility] Y47321 PERSONAL 12-05-2015 [facility] HISTORY OF COMMUNTIY NICOTINE HOSPITA DEPENDENCE I38 ENDOCARDITI 12-04-2015 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 Z951 PRESENCE OF 10-29-2015 [facility] RY [place] GRAFT M791 MYALGIA 10-19-2015 [facility] COMMUNTIY HOSPITA [id number] UNSPECIFIED 10-19-2015 [facility]RIGUE[facility] STEVO SPRAIN RIGHT ELBOW INITIAL ENCOUNTER T9197NI SPRAIN 10-19-2015 [facility] STEVO UNSPECIFIED SITE RT KNEE INITIAL ENCNTR [id number] SPRAIN 10-19-2015 [facility] COMMUNTIY LIGAMENT HOSPITA RIGHT ANKLE INITIAL ENC I452 BIFASCICULA 10-18-2015 [facility] MEDICAL R BLOCK SERV FOUNDATION A47436 PAIN IN 10-18-2015 [facility] M4307 SPONDYLOLYS 10-18-2015 [place] [facility] [place] [facility] LUMBOSACRAL FOUNDATION REGION M545 LOW BACK 10-18-2015 [place] [facility] PAIN [facility] M546 PAIN IN 10-18-2015 [place] [facility] THORAC[facility] SERV SPINE FOUNDATION M549 DORSALGIA 10-18-2015 [facility] B03142 PAIN IN 10-18-2015 [facility] R51 HEADACHE 10-18-2015 [facility] R52 PAIN 10-18-2015 [facility] UNSPECIFIED SERV FOUNDATION E317ELY FALL ON 10-18-2015 [place] [facility] FROM OTH SERV STAIRS FOUNDATION STEPS INITIAL ENCOUNTER Z043 ENCOUNTER 10-18-2015 [place] [facility] EXAM & SERV OBSERVATION FOUNDATION FOLLOW OTH ACCIDENT [id number] OTHER LONG 10-18-2015 [facility] CURRENT DRUG THERAPY R42 DIZZINESS 10-15-2015 [facility] AND [facility] GIDDINESS EMS R092 RESPIRATORY 10-12-2015 [facility] ARREST [place] [facility] I714 ABDOMINAL 10-10-2015 [facility] AORTIC SERV ANEURYSM FOUNDATION WITHOUT RUPTURE M1990 UNSPECIFIED 10-10-2015 [facility] OSTEOARTHRI TIS UNSPECIFIED SITE N200 CALCULUS OF 10-10-2015 [facility] KIDNEY SERV [facility]OUNDATION R1031 RIGHT LOWER 10-10-2015 [facility] PAIN R1032 LEFT LOWER 10-10-2015 [facility] PAIN R109 UNSPECIFIED 10-10-2015 [place] [facility] ABDOMINAL SERV PAIN FOUNDATION A8551PH UNSPECIFIED 10-10-2015 [facility] INJURY OF RADIOLOGY PELVIS INITIAL ENCOUNTER Z9049 ACQUIRED 10-10-2015 [facility] SPEC PARTS DIGESTIVE TRACT 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-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 UTERUS M797 FIBROMYALGI 10-08-2015 [facility] A FAMILY MEDICINE P R6889 OTHER 10-08-2015 [facility] GENERAL FAMILY SYMPTOMS MEDICINE P AND SIGNS A11695 PRESENCE OF 10-06-2015 [facility] RIGHT SERV ARTIFICIAL FOUNDATION HIP JOINT H579 UNSPECIFIED 09-15-2015 [facility] DISORDER [place] [facility] OF EYE AND EMS ADNEXA 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 OTH 09-12-2015 [facility] 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 DEGEN LUMBOSACRAL REGION M9902 SEGMENTAL & 09-12-2015 [facility] SOMATIC FAMILY DYSFUNCTION [facility] THORACIC REGION M9903 SEGMENTAL & 09-12-2015 [facility] SOMATIC FAMILY DYSFUNCTION [facility] OF LUMBAR REGION M9904 SEGMENTAL & 09-12-2015 [facility] SOMATIC FAMILY DYSFUNCTION [facility] OF SACRAL REGION R102 PELVIC AND 09-02-2015 [facility] [place] PERINEAL RADIOLOGY PAIN N62391 MIGRAINE 09-01-2015 BESSIEBRENDEN DELEON UNS NOT INTRACT W/O STATUS MIGRAINOSUS R110 NAUSEA 09-01-2015 [facility] S44907 OTHER 08-31-2015 [facility] MUSCLE COMMUNTIY SPASM HOSPITA R252 CRAMP AND 08-31-2015 CE[facility]AR[facility] - SPASM YORBA PAT P80019 PAIN IN 08-26-2015 [facility] Z1231 ENCOUNTER 08-15-2015 [facility] MAMMO MALIG NEOPLASM BREAST Z803 FAMILY 08-15-2015 [facility] MALIGNANT NEOPLASM OF BREAST H9319 TINNITUS 08-12-2015 [facility] UNSPECIFIED DI[facility]ETIC EAR CENTER, P M150 PRIMARY 08-12-2015 [facility], P OSTEOARTHRI TIS Q892UGY SPRAIN 07-09-2015 [facility] LIGAMENTS EMERGENCY CERVICAL PHYS PSC SPINE INITIAL ENCOUNTR M327QIB STRAIN 07-09-2015 [facility] MUSCLE FASC [facility]THOD[facility]Y & TENDON HOSP NECK LEVL INIT ENC R68351F STRAIN 07-09-2015 [facility] MUSCLE ORTHODOXY FASCIA & HOSP TENDON LOW BACK INITIAL Z880 ALLERGY 07-09-2015 [facility] STATUS TO [facility]TH[facility]Y PEN[facility]IN [facility]OSP Z882 ALLERGY 07-09-2015 [facility] STATUS TO [facility] SULFONAMIDE HOSP S STATUS N952 POSTMENOPAU 07-02-2015 [facility] [place] FAMILY ATROPHIC MEDICINE P VAGINITIS R3989 OTH 07-02-2015 [facility] SYMPTOMS & FAMILY SIGNS MEDICINE P INVOLVING THE SYSTEM M461 SACROILIITI 06-25-2015 [facility] S NOT FAMILY ELSEWHERE [facility]IR[facility]CT CLASSIFIED Z049 ENCOUNTER 06-03-2015 [facility] EXAMINATION SERV &OBSERVATIO FOUNDATION N FOR UNS REASON K5790 DIVERTICULO 05-14-2015 [facility] SIS PART SERV UNS W/O FOUNDATION PERF/ABSC W/O BLEED N289 DISORDER OF 05-14-2015 [facility] KIDNEY AND SERV URETER FOUNDATION UNSPECIFIED Z7982 OVAL OR CIRCULAR GLASS CUTTER 05-14-2015 [facility] 7202 SACROILIITI 04-25-2015 [facility] S NOT FAMILY ELSEWHERE [facility] CLASSIFIED 02814 DEGEN 04-25-2015 [facility] LUMBAR/LUMB FAMILY OSACRAL [facility]IROPRACT INTERVERTEB RAL DISC 7295 PAIN IN 04-25-2015 [facility] [place] SOFT RADIOLOGY TISSUES OF LIMB 7392 NONALLOPATH 04-25-2015 [facility] IC LESION FAMILY OF THORACIC CHIROPRACT REGION NEC 7393 NONALLOPATH 04-25-2015 [facility] IC LESION FAMILY OF LUMBAR CHIROPRACT REGION NEC 7394 NONALLOPATH 04-25-2015 [facility] IC LESION FAMILY OF SACRAL CHIROPRACT REGION NEC 4010 ESSENTIAL 04-22-2015 [facility] HYPERTENSIO N, MALIGNANT 4019 UNSPECIFIED 04-22-2015 [facility] ESSENTIAL CARDIOLOGY HYPERTENSIO N 07418 PAIN IN 04-22-2015 [facility] [place] JOINT RADIOLOGY PELVIC REGION AND THIGH 7804 DIZZINESS 04-22-2015 [facility] [place] AND RADIOLOGY GIDDINESS 7840 HEADACHE 04-22-2015 [facility] [place] RADIOLOGY 05441 CHEST PAIN 04-22-2015 [facility] UNSPECIFIED HUG 58102 HEAD 04-22-2015 [facility] INJURY, [place] UNSPECIFIED EMS V4364 HIP JOINT 04-22-2015 [facility] [place] REPLACEMENT RADIOLOGY BY OTHER MEANS V4589 OTHER 04-22-2015 [facility] POSTSURGICA CARDIOLOGY L STATUS OTHER 79571 CORONARY 04-08-2015 [facility] OSIS [place] CORONARY ARTERY V5481 AFTERCARE 04-08-2015 [place] [facility] FOLLOWING SERV JOINT FOUNDATION REPLACEMENT V700 ROUTINE 04-08-2015 [facility] MEDICAL EXAM@HEALTH CARE FACL 7224 DEGENERATIO 03-27-2015 [facility] N OF FAMILY CERVICAL CHIROPRACT INTERVERTEB RAL DISC 7391 NONALLOPATH 03-27-2015 [facility] IC LESION FAMILY OF CERVICAL CHIROPRACT REGION NEC 7821 RASH AND 03-26-2015 [facility] OTHER URGENT CARE NONSPECIFIC SKIN ERUPTION 5238 OTHER 03-17-2015 [place] [facility] SPECIFIED SERV PERIODONTAL FOUNDATION DISEASES 5289 OTHER&UNSPE 03-17-2015 [facility] DISEASES THE ORAL SOFT TISSUES 6259 UNSPEC 03-17-2015 [place] [facility] SYMPTOM SERV ASSOC FOUNDATION W/FEMALE GENITAL ORGANS 28264 CYSTOCELE 02-21-2015 [place] [facility] WITHOUT SERV MENTION FOUNDATION UTERINE PROLAPSE MIDLN 6273 POSTMENOPAU 02-21-2015 [place] [facility] [place] SERV ATROPHIC FOUNDATION VAGINITIS 8786 OPEN WOUND 02-13-2015 [facility] VAGINA FAMILY WITHOUT MEDICINE P MENTION COMPLICATIO N V1582 PERS HX 02-13-2015 [facility] TOBACCO USE FAMILY PRESENTING MEDICINE P [facility] 3688 OTHER 01-29-2015 [facility] SPECIFIED SERV VISUAL FOUNDATION DISTURBANCE S 4264 RIGHT 01-26-2015 [facility] BUNDLE SERV BRANCH FOUNDATION BLOCK 50366 OTHER 01-26-2015 [place] [facility] SPECIFIED SERV CARDIAC FOUNDATION DYSRHYTHMIA S 52729 NONSPECIFIC 01-26-2015 [facility] ABNORMAL SERV ELECTROCARD FOUNDATION IOGRAM 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 6250 DYSPAREUNIA 12-13-2014 [facility] SERV [facility] 22220 OTHER 12-09-2014 [facility] DISORDER OF SERV EXTERNAL FOUNDATION EAR 59902 UNSPECIFIED 12-09-2014 [facility] TINNITUS SERV FOUNDATION 31917 UNSPECIFIED 12-09-2014 [facility] SERV SENSORINEUR FOUNDATION AL HEARING LOSS 63692 SENSORINEUR 12-09-2014 [facility] LOSS ASYMMETRICA L 78536 OSTEOARTHRO 12-03-2014 [facility] SIS UNSPEC HEALTH WHETHER AGENCY GEN/LOC LOWER LEG 25726 OTHER 11-29-2014 [facility] AFTER-CATAR SERV ACT NOT FOUNDATION OBSCURING VISION 45573 MONOCULAR 11-29-2014 [facility] EXOTROPIA SERV FOUNDATION 09273 MECH 11-29-2014 [facility] COMPLICATIO SERV N DUE FOUNDATION OCULAR LENS PROSTHESIS 25527 LOC 11-05-2014 [facility] OSTEOARTHRO SERV S NOT SPEC FOUNDATION PRIM/SEC PELV RGN&THI 72719 OSTEOARTHRO 11-05-2014 [facility] GEN/LOC HOSPI PELV REGION&THIG H 19782 SENSORINEUR 11-01-2014 [facility] HEARING SERV LOSS FOUNDATION BILATERAL 04621 ESOPHAGEAL 10-29-2014 [facility] PH[facility]ICIAN SERVI 5990 URINARY 10-29-2014 [facility] INFECTION SITE NOT SPECIFIED 2724 OTHER AND 10-16-2014 [facility] HYPERLIPIDE ORTIZ V4981 ASYMPTOMATI 10-16-2014 [facility] POSTMENOPAU [place] STATUS 3970 DISEASES OF 10-09-2014 [facility] VALVE 4241 AORTIC 10-09-2014 [facility] DISORDERS V151 PERS HX 10-09-2014 [facility] SURG SERV HRT&GREAT FOUNDATION VES PRS [facility] 6238 OTHER 08-30-2014 [facility] SPECIFIED FAMILY NONINFLAMMA MEDICINE P TORY DISORDER VAGINA 64236 OSTEOARTHRO 08-16-2014 [facility] WHETHER GEN/LOC UNSPEC SITE V7189 OBSERVATION 08-16-2014 [facility] OTHER SERV SPECIFIED FOUNDATION SUSPECTED CONDITIONS 94636 PRIMARY LOC 08-12-2014 [facility] SERV OSTEOARTHRO FOUNDATION SIS PELVIC REGION&THIG H 64357 UNSPECIFIED 08-12-2014 [facility] ARTHROPATHY PELVIC REGION AND THIGH 71401 EXOSTOSIS 08-12-2014 [facility] UNSPECIFIED SITE 2768 HYPOPOTASSE 08-09-2014 [facility] 59046 OTHER 08-09-2014 [facility] NURSE MALAISE AND PRACTITIONE FATIGUE R GR 7850 UNSPECIFIED 08-09-[address] [place] [address] SHORTNESS 08-09-2014 [place] [address] OTHER 08-07-2014 [facility] 29006 OTHER 08-07-2014 [facility] GENERAL SERV SYMPTOMS FOUNDATION 97757 IMPAIRMENT 08-01-2014 [facility] NOT COMMUNITY FURTHER HOSPITA SPECIFIED 4280 CONGESTIVE 08-01-2014 [facility] FAILURE HOSPITA UNSPECIFIED 8439 SPRAIN&STRA 08-01-2014 [facility] IN OF COMMUNITY UNSPECIFIED HOSPITA SITE OF HIP&THIGH E9288 OTHER 08-01-2014 RODRIGUE[facility] STEVO ACCIDENT 89893 OTHER 07-31-2014 [facility] CHRONIC FAMILY ALLERGIC MEDICINE P CONJUNCTIVI TIS 7231 CERVICALGIA 07-31-2014 [facility] FAMILY MEDICINE P 7823 EDEMA 07-31-2014 [facility] FAMILY MEDICINE P 7851 PALPITATION 07-22-2014 [facility] S 52445 MIGRAINE 07-18-2014 [facility] W/O HOSPITAL INTRACT W/O STATUS MIGRAINOSUS 42275 COR 07-18-2014 [facility] UNSPEC TYPE VESSEL [place]/WILLIAM T 48434 UNSPECIFIED 07-15-2014 [facility] MAMMOGRAM 85573 INCONCLUSIV 07-15-2014 [facility] E MAMMOGRAM SERV FOUNDATION V163 FAMILY 07-15-2014 [facility] MALIGNANT NEOPLASM OF BREAST 4660 ACUTE 07-01-2014 [facility]ENT [facility] 4262 LEFT BUNDLE 06-25-2014 [facility] SERV HEMIBLOCK FOUNDATION 4412 THORACIC 06-25-2014 [facility] ANEURYSM SERV WITHOUT FOUNDATION MENTION OF RUPTURE 67156 SPASM OF 06-25-2014 [facility] 7812 ABNORMALITY 06-25-2014 [facility] EMS V1259 PERS HX, 06-25-2014 [facility] OTHER HOSPITAL DISEASES OF CIRCULATORY SYSTEM 11982 UNSPECIFIED 06-21-2014 [facility]INICAL SERV ANOPHTHALMO FOUNDATION S 4359 UNSPECIFIED 06-20-2014 [place] [facility] TRANSIENT SERV CEREBRAL FOUNDATION ISCHEMIA 97273 OTHER 06-20-2014 [facility] 93677 NONSPECIFIC 06-20-2014 [facility] ABNORMAL HOSPITAL ELECTROENCE PHALOGRAM V1240 UNSPECIFIED 06-20-2014 [facility] DISORER SERV NERVOUS FOUNDATION SYSTEM&SENS E ORGANS 3899 UNSPECIFIED 05-31-2014 [facility] HEARING SERV LOSS FOUNDATION 12286 OTHER 05-28-2014 [facility] SPECIFIED HOSPITAL DISORDERS OF BREAST 29530 OTHER 05-28-2014 [facility] ABNORMAL SERV FINDING FOUNDATION RADIOLOGICA L EXAM BREAST V1589 OTH SPEC 05-28-2014 [facility] PERS HX SERV PRESENTING FOUNDATION [facility] OTH V7612 OTHER 05-28-2014 [facility] SCREENING [facility]OSPITAL MAMMOGRAM 20268 CALCU 03-28-2014 [facility] W/OTH HOSPI CHOLECYST W/O MENTION OBST 49429 CENTRAL 03-27-2014 [facility] CLI ARTERY OCCLUSION OF RETINA V431 LENS 03-27-2014 [facility] CLI REPLACED BY OTHER MEANS 6929 CONTACT 03-13-2014 [facility] DERMATITIS& FAMILY OTHER MEDICINE P ECZEMA DUE UNSPEC CAUSE 7820 DISTURBANCE 03-11-2014 [facility] SENSATION V6759 OTHER 03-11-2014 [facility] EXAMINATION OTHER 73702 DIAB W/O 03-06-2014 [facility] COMP TYPE SERV II/UNS NOT FOUNDATION STATED UNCNTRL 92512 OTHER 03-06-2014 [facility] DISEASES OF SERV LUNG NOT FOUNDATIO ELSEWHERE CLASSIFIED 76363 CALCU 03-05-2014 [facility] GALLBLADD SERV W/O MENTION FOUNDATION CHOLECYST/O BST 91698 DIVERTICULO 02-20-2014 [facility] SIS OF SERV COLON FOUNDATIO 5920 CALCULUS OF 02-20-2014 [place] [facility] [facility] FOUNDATIO 5939 UNSPECIFIED 02-20-2014 [facility] DISORDER SERV OF KIDNEY FOUNDATIO AND URETER 17657 OTHER 02-19-2014 [facility] REFERABLE TO PELVIC JOINT 7822 LOCALIZED 02-19-2014 [facility] SWELLING FOUNDATIO M[place] LUMP 79799 ABDOMINAL 02-19-2014 [facility] UNSPECIFIED FOUNDATION SITE 81664 ABDOMINAL 02-19-2014 [facility] SPECIFIED SITE V4579 OTHER 02-19-2014 [facility] ABSENCE OF ORGAN V4581 POSTSURGICA 02-19-2014 [facility] AORTOCORONA RY BYPASS STATUS 7810 ABNORMAL 02-11-2014 [facility] 3384 CHRONIC 12-25-2013 [facility] J[facility] 7291 UNSPECIFIED 12-25-2013 [facility] MYOSITIS 76045 OTHER CHEST 12-06-2013 [facility] PSC 83395 ABDOMINAL 12-06-2013 [facility] EMERGENC[facility] EPIGASTRIC PHYS PSC 4011 ESSENTIAL 11-28-2013 [facility]YPERT[facility] N, BENIGN FOUNDATIO 4928 OTHER 11-28-2013 [facility]MPHYSE[facility] 74188 OTHER 11-28-2013 [facility] ABNORMAL FINDING OF LUNG FIELD 67507 NUCLEAR 10-30-2013 [facility] 4659 ACUTE URIS 10-17-2013 [facility] UNSPECIFIED SITE 00070 AORTIC 09-28-2013 [facility]CT[facility] UNSPECIFIED FOUNDATION SITE 13568 UNSPECIFIED 09-28-2013 [facility] ARTHROPATHY SITE UNSPECIFIED 15082 ABDOMINAL 09-28-2013 [facility] PAIN, LEFT HOSPITAL LOWER QUADRANT V1301 PERSONAL 09-28-2013 [facility] HISTORY OF [facility]PITAL URINARY CALCULI V4577 ACQUIRED 09-28-2013 [facility] OF [facility]OSPITAL ORGAN GENITAL ORGANS V8801 ACQUIRED 09-28-2013 [facility] OF [facility]OSP[facility] BOTH CERVIX AND UTERUS 7265 ENTHESOPATH 09-24-2013 [facility] 02564 OTHER 09-24-2013 [facility] [place] [address] OTHER AND 09-21-2013 [facility] FORMS OF FOUNDATIO SENILE CATARACT 0549 HERPES 09-17-2013 [facility] SIMPLEX FAMILY WITHOUT MEDICINE P MENTION [place] COMPLICATIO N 34661 PAINFUL 09-17-2013 [facility] [place]IRATION [place]INE P [address] DISORDER OF 09-11-2013 [facility] UNSPECIFIED [...] 20 0 RE 94 67 17 17 LA SO 8 PH CH DI AR AE UM MA L CY S 10 0 LL MG C SO FT GE L LO 00 02 05 0 30 30 ME 14 GA Ac RA 78 -1 -0 0. D 15 IN ti TA 15 7- 8- 00 CA 68 EY ve DI 07 20 20 0 RE 53 NE 70 17 17 LA 1 PH CH 10 AR AE MA L MG CY S TA LL BL C ET 00 02 05 0 30 30 ME 14 GA Ac PI 90 -1 -0 0. D 15 IN ti RI 46 7- 8- 00 CA 68 EY ve N 28 20 20 0 RE 54 81 88 17 17 LA 9 PH CH MG AR AE MA L CH CY S EW AB LL LE C TA BL ET CA 00 02 05 0 30 30 ME 14 GA Ac LC 53 -1 -0 0. D 15 IN ti IU 61 7- 8- 00 CA 68 EY ve M 04 20 20 0 RE 56 AN 81 17 17 LA TA 5 PH CH CI AR AE D MA L 50 CY S 0 MG LL C CH W TA B ME 00 02 05 0 60 30 ME 14 GA Ac LA 90 -1 -0 0. D 16 IN ti TO 45 8- 8- 00 CA 69 EY ve NI 18 20 20 0 RE 08 N 25 17 17 LA 3 2 PH CH MG AR AE MA L TA CY S BL ET LL C DO 45 02 04 0 60 30 ME 14 GA Ac CU 80 -1 -1 0. D 04 IN ti SA 20 7- 4- 00 CA 55 EY ve TE 48 20 20 0 RE 10 67 17 17 LA SO 8 PH CH DI AR AE UM MA L CY S 10 0 LL MG C SO FT GE L ME 00 02 04 0 60 30 ME 14 GA Ac LA 90 -1 -1 0. D 04 IN ti TO 45 8- 4- 00 CA 55 EY ve NI 18 20 20 0 RE 13 N 25 17 17 LA 3 2 PH CH MG AR AE MA L TA CY S BL ET LL C 00 02 04 0 30 30 ME 14 GA Ac PI 90 -1 -1 0. D 03 IN ti RI 46 7- 2- 00 CA 81 EY ve N 28 20 20 0 RE 02 81 88 17 17 LA 9 PH CH MG AR AE MA L CH CY S EW AB LL LE C TA BL ET CA 00 02 04 0 30 30 ME 14 GA Ac LC 53 -1 -1 0. D 03 IN ti IU 61 7- 2- 00 CA 81 EY ve M 04 20 20 0 RE 04 AN 81 17 17 LA TA 5 PH CH CI AR AE D MA L 50 CY S 0 MG LL C CH W TA B LO 00 02 04 0 30 30 ME 14 GA Ac RA 78 -1 -1 0. D 03 IN ti TA 15 7- 2- 00 CA 81 EY ve DI 07 20 20 0 RE 05 NE 70 17 17 LA 1 PH CH 10 AR AE MA [...] 017 K/mm3 ed monocyt 05:25 e count [place]haw % = 7.1 % 1.7-9.3 complet 017 [...] Procedure DOS Code Location Performer Comment SLCTV 40097 [facility] CATH 7 PHYSICIAN 1STORD S GROUP W/WO ART PUNCT/FLU OR/S&I CAROLYN CATH PLMT 42963 [facility] HRT & 7 PHYSICIAN ARTS S GROUP W/NJX & ANGIO IMG S&I RADIOLOGI 40483 [facility] EXAM 7 MEDICAL CHEST 2 IMAGING VIEWS ASS FRONTAL&L ATERAL ECG 64599 [facility] ROUTINE 7 PHYSICIAN ECG S, PLLC W/LEAST 12 LDS I&R ONLY INITIAL 28980 [facility] 7 PHYSICIAN CARE/DAY S GROUP 70 MINUTES CRITICAL 26480 [facility] 7 PHYSICIAN ILL/INJUR S, PLLC ED PATIENT INIT 30-74 MIN GROUND A0425 [facility] MILEAGE 7 AMBULANCE AMBULANCE PER SERVICE SERVICE STATUTE MILE AMBULANCE A0429 [facility] SERVICE 7 AMBULANCE AMBULANCE BLS SERVICE SERVICE EMERGENCY TRANSPORT ECG 48831 [facility] IQBAL JR ROUTINE [facility] W/LEAST P 12 LDS I&R ONLY NONEMERG A0120 [facility] TRNSPRT: 7 MINI-BUS TRANSPORT TRANSPORT MTN ATION SER ATION SER AREA/OTH SYS ECG 41096 [facility] ROUTINE 7 [facility] ECG INC INC W/LEAST 12 LDS W/I&R RADEX HIP 97732 [facility] 7 MEDICAL UNILATERA IMAGING L WITH ASS PELVIS 2-3 VIEWS THERAPEUT 81870 [facility] IC 7 MEM HOSP [facility]OS[facility] PROPHYLAC INC INC TIC/DX INJECTION SUBQ/IM AMBULANCE A0429 [facility] SERVICE 7 AMBULANCE AMBULANCE BLS SERVICE SERVICE EMERGENCY TRANSPORT GROUND A0425 [facility] MILEAGE 7 AMBULANCE AMBULANCE PER SERVICE SERVICE STATUTE MILE BASIC 24915 [facility] METABOLIC 7 TIFFANIE TIFFANIE PANEL HOLDINGS HOLDINGS CALCIUM TOTAL DRUG 05383 [facility] SCREEN 7 TIFFANIE TIFFANIE QUANTITAT HOLDINGS HOLDINGS MARVA PHENYTOIN TOTAL BASIC 68435 [facility] METABOLIC 7 TIFFANIE TIFFANIE [employer] [place] [address] [facility] BUSCH HEAD/BRAI 7 MEDICAL N W/O IMAGING CONTRAST ASS MATERIAL AMB A0427 [facility] SERVICE 7 AMBULANCE AMBULANCE ALS SERVICE SERVICE EMERGENCY TRANSPORT LEVEL 1 GROUND A0425 [facility] MILEAGE 7 AMBULANCE AMBULANCE PER SERVICE SERVICE STATUTE MILE NONEMERG A0120 [facility] TRNSPRT: 6 GRASS ULTRA MINI-BUS COMMUNITY TRANSIT MTN ACTION SERV AREA/OTH SYS NONEMERG A0120 [facility] TRNSPRT: 6 GRASS ULTRA MINI-BUS COMMUNITY TRANSIT MTN ACTION SERV AREA/OTH SYS RADEX 50139 AKASH PAWLEY HIPS 6 MEDICAL BAR BILATERAL SERV WITH FOUNDATIO PELVIS N 3-4 VIEWS RADEX 25447 [facility] HIPS 6 Y Y [facility] HOSPITAL WITH PELVIS 3-4 VIEWS NONEMERG A0120 [facility] TRNSPRT: 6 GRASS ULTRA MINI-BUS COMMUNITY TRANSIT MTN ACTION SERV AREA/OTH SYS INJECTION J3301 [facility] 6 Y Y [facility] LONE ACETONIDE NOS 10 MG ARTHROCEN 15922 [facility] 6 Y Y ASPIR&/IN HOSPITAL HOSPITAL J MAJOR JT/BURSA W/O US CT 05-10-201 58806 [facility] [place] ABDOMEN & 6 RADIOLOGY RAY PELVIS W/CONTRAS T MATERIAL GROUND A0425 [facility] MILEA 6 N-LAUREEN RUTLEDGE PER CO EMS CO EMS STATUTE MILE AMBULANCE A0429 [facility] SERVICE 6 N-LAUREEN Guerrero-LAUREEN BLS CO EMS CO EMS EMERGENCY TRANSPORT AMBULANCE A0429 [facility] SERVICE 6 N-LAUREEN Guerrero-LAUREEN BLS CO EMS CO EMS EMERGENCY TRANSPORT GROUND A0425 [facility] MILEA 6 N-LAUREEN RUTLEDGE PER CO EMS CO EMS STATUTE MILE GROUND A0425 [facility] MILEA 6 N-LAUREEN Guerrero-LAUREEN PER CO EMS CO EMS STATUTE MILE AMBULANCE A0429 [facility] SERVICE 6 N-LAUREEN Guerrero-LAUREEN BLS CO EMS CO EMS EMERGENCY TRANSPORT AMBULANCE A0429 [facility] SERVICE 6 N-LAUREEN Guerrero-LAUREEN BLS CO EMS CO EMS EMERGENCY TRANSPORT GROUND [address] [facility] 6 N-LAUREEN RUTLEDGE PER CO EMS CO EMS STATUTE MILE RADEX HIP 08616 [facility] [place] SCALF CHAD 6 RADIOLOGY UNILATERA L WITH PELVIS 2-3 VIEWS NONEMERG A0120 [facility] TRNSPRT: 6 GRASS ULTRA MINI-BUS COMMUNITY TRANSIT MTN ACTION SERV AREA/OTH SYS SELF-CARE 46630 [facility] /HOME 6 N N MGMT COMMUNTIY COMMUNTIY TRAINING HOSPITA HOSPITA EACH 15 MINUTES NONEMERG A0120 [facility] TRNSPRT: 6 GRASS ULTRA MINI-BUS COMMUNITY TRANSIT MTN ACTION SERV AREA/OTH SYS PHYSICAL 91298 [facility] THERAPY 6 N N EVALUATIO COMMUNTIY COMMUNTIY N HOSPITA HOSPITA APPL 13150 [facility] MODALITY 6 N N 1/> AREAS COMMUNTIY COMMUNTIY HOSPITA HOSPITA IONTOPHOR ESIS EA 15 MIN NONEMERG A0120 [facility] OREILLY TRNSPRT: 6 GRASS ULTRA MINI-BUS COMMUNITY TRANSIT MTN ACTION SERV AREA/OTH SYS INJECTION J3301 [place] [address] Y [facility] LONE ACETONIDE NOS 10 MG ARTHROCEN 02176 AKASH SAMANO 6 MEDICAL ASPIR&/IN SERV J MAJOR FOUNDATIO JT/BURSA N W/O US AMBULANCE A0429 [facility] SERVICE 6 N-LAUREEN Guerrero-LAUREEN BLS CO EMS CO EMS EMERGENCY TRANSPORT GROUND A0425 [facility] MILEA 6 N-LAUREEN RUTLEDGE PER CO EMS CO EMS STATUTE MILE AMBULANCE A0429 [facility] SERVICE 6 N-LAUREEN Guerrero-LAUREEN BLS CO EMS CO EMS EMERGENCY TRANSPORT GROUND [address] [facility] 6 N-LAUREEN RUTLEDGE PER CO EMS CO EMS STATUTE MILE RADEX HIP 98283 [facility] 6 N N UNILATERA COMMUNTIY COMMUNTIY L WITH HOSPITA HOSPITA PELVIS 2-[address] [facility] 6 N-LAUREEN RUTLEDGE PER CO EMS CO EMS STATUTE MILE AMBULANCE A0429 [facility] SERVICE 6 N-LAUREEN Guerrero-LAUREEN BLS CO EMS CO EMS EMERGENCY TRANSPORT ECG 96795 [facility] ROUTINE 6 N N ECG COMMUNTIY COMMUNTIY W/LEAST HOSPITA HOSPITA 12 LDS TRCG ONLY W/O I&R IAADIADOO 78921 [facility] 6 N N STREPTOCO COMMUNTIY COMMUNTIY CCUS HOSPITA HOSPITA GROUP A CUL BACT 17286 [facility] XCPT 6 N N URINE COMMUNTIY COMMUNTIY BLOOD/STO HOSPITA [place] [address] [facility] TROPONIN 6 N N QUANTITAT COMMUNTIY COMMUNTIY MARVA HOSPITA HOSPITA COLLECTIO 09896 [facility] N VENOUS 6 N N BLOOD COMMUNTIY COMMUNTIY [place] [address] [facility] CERVICAL 6 Y Y SPINE W/O HOSPITAL HOSPITAL CONTRAST MATERIAL RADEX 42624 [facility] ANKLE 6 Y Y [facility] MINIMUM 3 VIEWS RADEX 70388 [facility] FOOT 6 Y Y [facility]PITAL MINIMUM 3 VIEWS ECG 54666 [place] KACI CHI ROUTINE 6 MEDICAL ECG SERV W/LEAST FOUNDATIO 12 LDS N I&[place] [address] [facility] HEAD/BRAI 6 Y Y N W/[place] [address] [facility] THORACIC 6 Y Y SPINE W/O HOSPITAL HOSPITAL CONTRAST MATERIAL ECG 62141 [facility] ROUTINE 6 Y Y ECG HOSPITAL HOSPITAL W/LEAST 12 LDS TRCG ONLY W/O I&R RADIOLOGI 05475 [facility] C 6 Y Y [facility] [address] LUMBAR 75561 [facility] SPINE 6 Y Y W/O HOSPITAL HOSPITAL CONTRAST MATERIAL RADEX HIP 01719 [facility] [place] SCALF CHAD 6 RADIOLOGY UNILATERA L WITH PELVIS 2-3 VIEWS GROUND A0425 [place] 6 Yolanda-LAUREEN RUTLEDGE PER CO EMS CO EMS STATUTE MILE AMBULANCE A0429 [facility] 6 Yolanda-LAUREEN RUTLEDGE BLS CO EMS CO EMS EMERGENCY TRANSPORT AMBULANCE A0429 [facility] SERVICE 6 Yolanda-LAUREEN CRS CO EMS CO EMS EMERGENCY TRANSPORT GROUND [address] [facility] 6 Yolanda-LAUREEN RUTLEDGE PER CO EMS CO EMS STATUTE MILE GROUND A[address] [facility] 6 Yolanda-LAUREEN RUTLEDGE PER CO EMS CO EMS STATUTE MILE AMB A0427 [facility] 6 Yolanda-LAUREEN RUTLEDGE ALS CO EMS CO EMS EMERGENCY TRANSPORT LEVEL 1 RADIOLOGI 39241 [facility] AKASH DURAN C 6 RADIOLOGY III EXAMINATI ON PELVIS 1/[address] [place] [address] AKASH ANTHONY ABDOMEN & 6 MEDICAL BAR PELVIS SERV W/O FOUNDATIO CONTRAST N MATERIAL AMBULANCE A0429 [facility] SERVICE 6 Yolanda-LAUREEN RUTLEDGE BLS CO EMS CO EMS EMERGENCY TRANSPORT GROUND A[address] [facility] 6 Yolanda-LAUREEN RUTLEDGE PER CO EMS CO EMS STATUTE MILE NONEMERG A0120 [facility] TRNSPRT: 6 GRASS ULTRA MINI-BUS COMMUNITY TRANSIT MTN ACTION SERV AREA/OTH SYS NONEMERG A0120 [facility] TRNSPRT: 6 GRASS ULTRA MINI-BUS COMMUNITY TRANSIT MTN ACTION SERV AREA/OTH SYS RADEX 23537 [facility] [place] 6 Y Y [facility] WITH PELVIS MINIMUM 5 VIEWS AMBULANCE A0429 [facility] SERVICE 6 Yolanda-LAUREEN CRS CO EMS CO EMS EMERGENCY TRANSPORT GROUND A0425 [place] 6 Yolanda-LAUREEN RUTLEDGE PER CO EMS CO EMS STATUTE MILE GROUND A0425 [place] 6 Yolanda-LAUREEN RUTLEDGE PER CO EMS CO EMS STATUTE MILE URNLS DIP 65545 [facility] 6 N N STICK/TAB COMMUNTIY COMMUNTIY LET HOSPITA 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 AUTO MICROSCOP Y DRUG TEST G0479 [facility] 6 N N PRESUMP;I COMMUNTIY COMMUNTIY [facility] HOSPITA ED CHEMISTRY ANLYZER ECG 86856 [facility] ROUTINE 6 N N ECG COMMUNTIY COMMUNTIY W/LEAST HOSPITA HOSPITA 12 LDS TRCG ONLY W/O I&R AMB A0427 [facility] SERVICE 6 Yolanda-LAUREEN RUTLEDGE ALS CO EMS CO EMS EMERGENCY TRANSPORT LEVEL 1 ECG 77017 [facility] ROUTINE 6 SCO SCO ECG W/LEAST 12 LDS I&R ONLY CHIROPRAC 85327 [facility] JEANNINE TIC 6 N FAMILY JENNIFER MANIPULAT CHIROPRAC MARVA TX T SPINAL 3-4 REGIONS INJECTION J2765 [facility] 6 N N METOCLOPR COMMUNTIY COMMUNTIY AMIDE HCL HOSPITA HOSPITA UP TO 10 MG THERAPEUT 61013 [facility] IC 6 N N INJECTION COMMUNTIY COMMUNTIY IV PUSH HOSPITA HOSPITA EACH NEW DRUG APPL 91995 [facility] JEANNINE MODALITY 6 N FAMILY JENNIFER 1/> AREAS CHIROPRAC TRACTION T MECHANICA L THER 29040 [facility] PROPH/DX 6 N N NJX IV COMMUNTIY COMMUNTIY PUSH HOSPITA HOSPITA SINGLE/1S T SBST/DRUG INJECTION J1885 [facility] 6 N N KETOROLAC COMMUNTIY COMMUNTIY HOSPITA HOSPITA TROMETHAM INE PER 15 MG INJECTION J1200 [facility] 6 N N DIPHENHYD COMMUNTIY COMMUNTIY RAMINE HOSPITA HOSPITA HCL UP TO 50 MG GROUND A0425 [place] 6 Yolanda-LAUREEN RUTLEDGE PER CO EMS CO EMS STATUTE MILE AMBULANCE A0429 [facility] SERVICE 6 Yolanda-LAUREEN CRS CO EMS CO EMS EMERGENCY TRANSPORT AMBULANCE A0429 [facility] SERVICE 6 Yolanda-LAUREEN CRS CO EMS CO EMS EMERGENCY TRANSPORT GROUND A0425 [place] 6 AAMIR RUTLEDGE PER CO EMS CO EMS STATUTE MILE RADIOLOGI 36412 MICHAEL Uribe 6 STEVO STEVO EXAMINATI ON PELVIS 1/2 VIEWS THER 50134 [facility] PROPH/DX 6 N N NJX IV COMMUNTIY COMMUNTIY PUSH HOSPITA HOSPITA SINGLE/1S T SBST/DRUG INJECTION J1885 [facility] 6 N N KETOROLAC COMMUNTIY COMMUNTIY HOSPITA HOSPITA TROMETHAM INE PER 15 MG INFUSION J7030 [facility] NORMAL 6 N N SALINE COMMUNTIY COMMUNTIY SOLUTION HOSPITA HOSPITA 1000 CC INJECTION J1200 [facility] 6 N N DIPHENHYD COMMUNTIY COMMUNTIY RAMINE HOSPITA HOSPITA HCL UP TO 50 MG THERAPEUT 14136 [facility] IC 6 N N INJECTION COMMUNTIY COMMUNTIY IV PUSH HOSPITA HOSPITA EACH NEW DRUG INJECTION J2765 [facility] 6 N N METOCLOPR COMMUNTIY COMMUNTIY AMIDE HCL HOSPITA HOSPITA [place] 10 [place] [address] [facility] INFUSION 6 N N HYDRATION COMMUNTIY COMMUNTIY EACH HOSPITA HOSPITA ADDITIONA L HOUR INJECTION J2360 [facility] 6 N N ORPHENADR COMMUNTIY COMMUNTIY INE HOSPITA HOSPITA CITRATE UP TO 60 MG THERAPEUT 26021 [facility] IC 6 N N PROPHYLAC COMMUNTIY COMMUNTIY TIC/DX HOSPITA HOSPITA INJECTION SUBQ/IM AMBULANCE A0429 [facility] SERVICE 6 Yolanda-LAUREEN Guerrero-LAUREEN BLS CO EMS CO EMS EMERGENCY TRANSPORT GROUND A0425 [facility] MILEA 6 AAMIR RUTLEDGE PER CO EMS CO EMS STATUTE MILE GROUND [address] [facility] 6 Yolanda-LAUREEN RUTLEDGE PER CO EMS CO EMS STATUTE MILE AMBULANCE A0429 [facility] SERVICE 6 Yolanda-LAUREEN RUTLEDGE BLS CO EMS CO EMS EMERGENCY TRANSPORT THERAPEUT 93466 [facility] IC 6 N N PROPHYLAC COMMUNTIY COMMUNTIY TIC/DX HOSPITA HOSPITA INJECTION SUBQ/IM INJECTION J2360 [facility] 6 N N ORPHENADR COMMUNTIY COMMUNTIY INE HOSPITA HOSPITA CITRATE UP TO 60 MG RADEX HIP 10939 [facility] [place] ARREAGA 6 RADIOLOGY GEETHA UNILATERA L WITH PELVIS 2-3 VIEWS NONEMERG A0120 [facility] TRNSPRT: 6 GRASS ULTRA MINI-BUS COMMUNITY TRANSIT MTN ACTION SERV AREA/OTH SYS RADIOLOGI 27227 AKASH Uribe 6 MEDICAL BAR EXAMINATI SERV ON FEMUR FOUNDATIO MINIMUM 2 N VIEWS RADEX HIP 52306 AKASH CRUZ 6 MEDICAL BAR UNILATERA SERV L WITH FOUNDATIO PELVIS N 2-3 VIEWS AMBULANCE A0429 [facility] 6 AAMIR CRS CO EMS CO EMS EMERGENCY TRANSPORT GROUND A[address] [facility] 6 AAMIR RUTLEDGE PER CO EMS CO EMS STATUTE MILE SCREENING G0202 [place] [address] Y [facility] HY CAROLYN INCL CAD WHEN PERFORMD [address] SCREENING MAMMOGRAP HY NONEMERG A0120 [facility] TRNSPRT: 6 GRASS ULTRA MINI-BUS COMMUNITY TRANSIT MTN ACTION SERV AREA/OTH SYS SCREENING [address] TOMOSYNTH ESIS BI NONEMERG A0120 [facility] TRNSPRT: 6 GRASS ULTRA MINI-BUS COMMUNITY TRANSIT MTN ACTION SERV AREA/OTH SYS NONEMERG A0120 [facility] TRNSPRT: 5 GRASS ULTRA MINI-BUS COMMUNITY TRANSIT MTN ACTION SERV AREA/OTH SYS AMB A0427 [facility] 5 AAMIR RUTLEDGE ALS CO EMS CO [place] [address] AKASH MARIA ALEJANDRA HEAD/BRAI 5 MEDICAL KATI N W/O SERV CONTRAST FOUNDATIO MATERIAL N GROUND A[address] [facility] 5 AAMIR RUTLEDGE PER CO EMS CO EMS STATUTE MILE RADEX 61026 [facility] 1 5 RADIOLOGY VIEW ASSOC SPECIFY LEVEL RADEX 61950 [facility] 5 RADIOLOGY CERVICAL ASSOC 2 OR 3 VIEWS CHIROPRAC 16440 [facility] TIC 5 N FAMILY JENNIFER MANIPULAT CHIROPRAC MARVA TX T SPINAL 3-4 REGIONS ECG 54470 [place] MARIA L ANDREW ROUTINE 5 MEDICAL ECG SERV W/LEAST FOUNDATIO 12 LDS N I&R ONLY RADIOLOGI 12678 [facility] C 5 Y Y EXAMINATI [facility] ON PELVIS 1/[address] [place] [address] [facility] ABDOMEN & 5 Y Y PELVIS [facility] W/CONTRAS T MATERIAL ECG 68871 [facility] ROUTINE 5 Y Y ECG [facility] W/LEAST 12 LDS TRCG ONLY W/O I&R BLOOD 75327 [facility] COUNT 5 Y [facility] [place] [address] [facility] TROPONIN 5 Y Y QUANTITAT [facility] MARVA RADIOLOGI 82974 [place] KANDICE C 5 MEDICAL BREANNA EXAMINATI SERV ON CHEST FOUNDATIO SINGLE N VIEW FRONTAL ECG 17083 AKASH KACI CHI ROUTINE 5 MEDICAL ECG SERV W/LEAST FOUNDATIO 12 LDS N I&R ONLY COMPREHEN 84560 [facility] SIVE 5 Y Y METABOLIC [facility] PANEL LOCM Q9967 [facility] [phone] 5 Y Y MG/ML HOSPITAL HOSPITAL IODINE CONCENTRA TION PER ML CHIROPRAC 33013 JUSTIN PAEZ TIC 5 N FAMILY JENNIFER MANIPULAT CHIROPRAC MARVA TX T SPINAL 3-4 REGIONS CHIROPRAC 95635 JUSTIN PAEZ TIC 5 N FAMILY JENNIFER MANIPULAT CHIROPRAC MARVA TX T SPINAL 3-4 REGIONS THERAPEUT 94682 JUSTIN PAEZ IC PX 1/> 5 N FAMILY JENNIFER AREAS CHIROPRAC EACH 15 T MIN EXERCISES APPL 71531 JUSTIN PAEZ MODALITY 5 N FAMILY JENNIFER 1/> AREAS CHIROPRAC TRACTION T MECHANICA L APPL 45687 JUSTIN PAEZ MODALITY 5 N FAMILY JENNIFER 1/> AREAS CHIROPRAC ELEC T STIMJ EA 15 MIN RADIOLOGI 07889 [facility] [place] MARY C 5 RADIOLOGY RHO EXAMINATI ON CHEST SINGLE VIEW FRONTAL OBSERVATI 55657 AIMEE AIMEE ON CARE 5 HUG HUG DISCHARGE MANAGEMEN T SBSQ 95391 [facility]ar[facility] TEJEDA OBSERVATI 5 N MICHAEL ON CARDIOLOG CARE/DAY Y 25 MINUTES MYOCARDIA 48375 [facility]ORGIONORW[facility] NIKHIL L SPECT 5 N MICHAEL MULTIPLE CARDIOLOG STUDIES Y ECHO 08634 GIORGIOMarivel TEJEDA TTHRC R-T 5 N MICHAEL 2D CARDIOLOG W/WOM-MOD Y E COMPL SPEC&COLR D ECG 04192 AIMEE AIMEE ROUTINE 5 HUG HUG ECG W/LEAST 12 LDS I&R ONLY AMB A0427 [facility] SERVICE 5 AAMIR RUTLEDGE ALS CO EMS CO EMS EMERGENCY TRANSPORT LEVEL 1 CV STRS 17625 GIORGIOMarivel TEJEDA TST 5 N MICHAEL XERS&/OR CARDIOLOG RX CONT Y ECG I&R ONLY RADEX 44038 [facility] [place] MARY HIPS 5 RADIOLOGY RHO BILATERAL 2 VIEWS ANTEROPOS T PELVIS RADIOLOGI 86933 [facility] [place] MARY C 5 RADIOLOGY RHO EXAMINATI [place] [address] [facility] [place] HEAD/BRAI 5 RADIOLOGY RHO N W/O CONTRAST MATERIAL CV STRS 75663 GIORGIOMarivel TEJEDA TST 5 N MICHAEL XERS&/OR CARDIOLOG RX CONT Y ECG W/O I&R INITIAL 12176 AIMEE AIMEE OBSERVATI 5 HUG HUG ON CARE/DAY 70 MINUTES GROUND A0425 [facility] MILEAGE 5 AAMIR RUTLEDGE PER CO EMS CO EMS STATUTE MILE APPL 70341 [facility] JEANNINE MODALITY 5 N FAMILY JENNIFER 1/> AREAS CHIROPRAC ELEC T STIMJ UNATTENDE D CHIROPRAC 18162 [facility] JEANNINE TIC 5 N FAMILY JENNIFER MANIPULAT CHIROPRAC MARVA TX T SPINAL 3-4 REGIONS APPL 63879 [facility] JEANNINE MODALITY 5 N FAMILY JENNIFER 1/> AREAS CHIROPRAC TRACTION T MECHANICA L APPL 06097 [facility] JEANNINE MODALITY 5 N FAMILY JENNIFER 1/> AREAS CHIROPRAC TRACTION T MECHANICA L CHIROPRAC 86794 GIORGIOMarivel PAEZ TIC 5 N FAMILY JENNIFER MANIPULAT CHIROPRAC MARVA TX T SPINAL 3-4 REGIONS APPL 49799 [facility] JEANNINE MODALITY 5 N FAMILY JENNIFER 1/> AREAS CHIROPRAC ELEC T STIMJ UNATTENDE D APPL 74125 [facility] JEANNINE MODALITY 5 N FAMILY JENNIFER 1/> AREAS CHIROPRAC ELEC T STIMJ UNATTENDE D CHIROPRAC 10362 [facility] JEANNINE TIC 5 N FAMILY JENNIFER MANIPULAT CHIROPRAC MARVA TX T SPINAL 3-4 REGIONS APPL 85985 [facility] JEANNINE MODALITY 5 N FAMILY JENNIFER 1/> AREAS CHIROPRAC TRACTION T MECHANICA L APPL 71722 [facility] JEANNINE MODALITY 5 N FAMILY JENNIFER 1/> AREAS CHIROPRAC TRACTION T MECHANICA L THERAPEUT 18567 [facility] JEANNINE IC PX 1/> 5 N FAMILY JENNIFER AREAS CHIROPRAC EACH 15 T MIN EXERCISES CHIROPRAC 70597 [facility] TIC 5 N FAMILY JENNIFER MANIPULAT CHIROPRAC MARVA TX T SPINAL 3-4 REGIONS APPL 14855 [facility] JEANNINE MODALITY 5 N FAMILY JENNIFER 1/> AREAS CHIROPRAC ELEC T STIMJ UNATTENDE D COLLECTIO 18798 [facility] N VENOUS [address] [facility] VENIPUNCT URE COMPREHEN 20115 [facility] SIVE [address] [facility] PANEL RADIOLOGI 65984 [place] NICKELS C 5 MEDICAL NIKKIE EXAMINATI SERV ON PELVIS FOUNDATIO 1/2 N VIEWS BLOOD 54718 [facility] COUNT [address] [facility] AUTO&AUTO DIFRNTL WBC CHIROPRAC 55109 [facility] PAEZ TIC 5 N FAMILY JENNIFER MANIPULAT CHIROPRAC [place] TX T SPINAL 3-4 REGIONS GROUND A0425 [facility] MILEAGE 5 N-LAUREEN Guerrero-LAUREEN PER CO EMS CO EMS STATUTE MILE AMBULANCE A0429 [facility] SERVICE 5 N-LAUREEN Guerrero-LAUREEN BLS CO EMS CO EMS EMERGENCY TRANSPORT CHIROPRAC 01594 [facility] PAEZ TIC 5 N FAMILY JENNIFER MANIPULAT CHIROPRAC [place] TX T SPINAL 3-4 REGIONS IAADIADOO 18462 [facility] EDINSONI[place] 5 N URGENT [place] [address] AKASH ADILIA KWA HEAD/BRAI 5 MEDICAL N W/O SERV CONTRAST FOUNDATIO MATERIAL N ECG 43350 AKASH CLEMONS CHI ROUTINE 5 MEDICAL ECG SERV W/LEAST FOUNDATIO 12 LDS N I&R ONLY CHIROPRAC 49726 [facility] JEANNINE TIC 5 N FAMILY JENNIFER MANIPULAT CHIROPRAC [place] TX T SPINAL 3-4 REGIONS APPL 53996 [facility] JEANNINE MODALITY 5 N FAMILY JENNIFER 1/> AREAS CHIROP[facility]AC TRACTION T MECHANICA L APPL 29317 [facility] JEANNINE MODALITY 5 N FAMILY JENNIFER 1/> AREAS CHIROPRAC ELEC T STIMJ UNATTENDE D CHIROPRAC 99446 [facility] JEANNINE TIC 5 N FAMILY JENNIFER MANIPULAT CHIROPRAC [place] TX T SPINAL 3-4 REGIONS RADIOLOGI 18025 AKASH CARLOS C 5 MEDICAL FRA EXAMINATI SERV ON PELVIS FOUNDATIO 1/2 N VIEWS RADEX HIP 94009 AKASH CARLOS 5 MEDICAL FRA UNILATERA SERV L FOUNDATIO COMPLETE N MINIMUM 2 VIEWS CHIROPRAC 12072 [facility] PAEZ TIC 5 N FAMILY JENNIFER MANIPULAT CHIROPRAC [place] TX T SPINAL 3-4 REGIONS INJECTION [id number] [facility] 5 Y Y [facility] L 0.1 ML MRI BRAIN 24913 AKASH KELLY MARTÍNEZ BRAIN 5 MEDICAL STEM [...] AGENCY HH/HOSPIC E EA 15 MIN ANESTHESI 60130 [place] SULAIMAN A OPEN 5 LTH TOTAL HIP ANESTHESI A PSC ARTHROPLA STY RADEX HIP 64153 [place] RAYO 5 MEDICAL STEVO [place] SERV L FOUNDATIO COMPLETE N MINIMUM 2 VIEWS RADIOLOGI 50835 [place]AY[place] C 5 MEDICAL STEVO EXAMINATI SERV ON PELVIS FOUNDATIO 1/2 N VIEWS ARTHRP 87998 [place] ACETBLR/P 5 MEDICAL LETHA FEM SERV PROSTC FOUNDATIO AGRFT/ALG N RFT LEVEL III 79062 [facility] SURG 5 Y OF ANTOINE PATHOLOGY [facility] GROSS&YELITZA ROSCOPIC EXAM DECALCIFI 14650 [facility] 5 Y OF ANTOINE PROCEDURE [facility] CHIROPRAC 87896 JUSTIN PAEZ TIC 5 N FAMILY EJNNIFER MANIPULAT CHIROPRAC [place] TX T SPINAL 3-4 REGIONS COMPRE 55148 [place] AUDIOMETR 5 MEDICAL CHAD Y SERV THRESHOLD FOUNDATIO EVAL SP N RECOGNIJ TYMPANOME 28357 AKASH LANDIN TRY 5 MEDICAL CHAD SERV FOUNDATIO N SUSCEPTIB 01786 [facility] LTY STDY [address] [facility] IAL MICRO/AGA R DILUTJ CUL BACT 07907 [facility] AEROBIC [address] [facility] METHS DEFINITIV E EA ISOL CULTURE 06602 [facility] BACTERIAL [address] [facility] QUANTTATI VE COLONY COUNT URINE URNLS DIP 17458 [facility] 5 Y Y STICK/TAB [facility] LET REAGENT AUTO MICROSCOP Y BASIC 57202 [facility] METABOLIC [address] [facility] CALCIUM TOTAL COLLECTIO 89328 [facility] N VENOUS Y Y BLOOD [facility] VENIPUNCT URE CHIROPRAC 00249 Exclusively.in TIC 5 N FAMILY JENNIFER MANIPULAT CHIROPRAC [place] T SPINAL 3-4 REGIONS CHIROPRAC 85753 [facility] Tyres on the Drive TIC 5 N FAMILY JENNIFER MANIPULAT CHIROPRAC [place] T SPINAL 3-4 REGIONS CHIROPRAC 65197 [employer] Classifieds TIC 5 N FAMILY JENNIFER MANIPULAT CHIROPRAC [place] T SPINAL 3-4 REGIONS CHIROPRAC 53994 [facility] Tyres on the Drive TIC 5 N FAMILY JENNIFER MANIPULAT CHIROPRAC [place] T SPINAL 3-4 REGIONS INJECTION [id number] [facility] UNIVERS [address] [facility] HCL PER 1 MG INJECTION [id number] [facility] FENTANYL [address] [facility] 0.1 MG BASIC 91452 [facility] METABOLIC [address] [facility] CALCIUM TOTAL INJECTION J1644 [facility] HEPARIN [address] [facility] PER 1000 UNITS CATH 57881 [facility] PLACEMENT 5 Y Y & NJX [facility] CORONARY ART ANGIO IMG S&I GUIDE C1769 [facility] WIRE 5 Y Y [facility] BLOOD 09352 [facility] COUNT [address] [facility] AUTOMATED CATHETER C1887 [facility] GUIDING 5 Y Y HOSPITAL HOSPITAL INTRDUCR/ C1894 [facility] SHEATH 5 Y Y NOT GUID [facility] INTRACARD EP NON-LASR LOCM Q9967 [facility] [phone] 5 Y Y MG/ML HOSPITAL HOSPITAL IODINE CONCENTRA TION PER ML APPL 13528 GIORIGOGLADISMarivel BARNESAXEL MODALITY 5 N FAMILY ANDREW 1/> AREAS CHIROPRAC TRACTION T MECHANICA L CHIROPRAC 90253 GIORGIOZUNILDA REYNA TIC 5 N FAMILY ANDREW MANIPULAT CHIROPRAC [place] T SPINAL 3-4 REGIONS THERAPEUT 41610 JUSTIN REYNA IC PX 1/> 5 N FAMILY ANDREW AREAS CHIROPRAC EACH 15 T MIN EXERCISES ECHO 50096 AKASH ENAMORADO JEN TTHRC R-T 5 MEDICAL 2D W/WO SERV M-MODE FOUNDATIO REST&STRS N CONT ECG CV STRS 63493 [facility] TST 5 Y Y XERS&/OR HOSPITAL HOSPITAL RX CONT ECG TRCG ONLY APPL 05087 JUSTIN PAEZ MODALITY 5 N FAMILY JENNIFER 1/> AREAS CHIROPRAC TRACTION T MECHANICA L THERAPEUT 80815 JUSTIN PAEZ IC PX 1/> 5 N FAMILY JENNIFER AREAS CHIROPRAC EACH 15 T MIN EXERCISES CHIROPRAC 00681 JUSTIN PAEZ TIC 5 N FAMILY JENNIFER MANIPULAT CHIROPRAC [place] T SPINAL 3-4 REGIONS APPL 29109 JUSTIN PAEZ MODALITY 5 N FAMILY JENNIFER 1/> AREAS CHIROPRAC ELEC T STIMJ UNATTENDE D THERAPEUT 46365 JUSTIN PAEZ IC PX 1/> 5 N FAMILY JENNIFER AREAS CHIROPRAC EACH 15 T MIN EXERCISES CHIROPRAC 08105 JUSTIN PAEZ TIC 5 N FAMILY JENNIFER MANIPULAT CHIROPRAC [place] T SPINAL 3-4 REGIONS APPL 68664 JUSTIN PAEZ MODALITY 5 N FAMILY JENNIFER 1/> AREAS CHIROPRAC TRACTION T MECHANICA L CHIROPRAC 50045 JUSTIN PAEZ TIC 5 N FAMILY JENNIFER MANIPULAT CHIROPRAC [place] T SPINAL 3-4 REGIONS RADEX HIP 66965 AKASH POLLACK JAM 5 MEDICAL UNILATERA SERV L FOUNDATIO COMPLETE N MINIMUM 2 VIEWS BASIC 03913 [facility] METABOLIC [address] [facility] CALCIUM TOTAL RADEX HIP 78179 [facility] 5 N N UNILATERA COMMUNITY COMMUNITY L HOSPITA HOSPITA COMPLETE MINIMUM 2 [place] [address] [facility] MAGNESIUM 4 N N [place] [address] [facility] TROPONIN 4 N N QUANTITAT [facility] COMMUNITY [place] HOSPITA HOSPITA BLOOD 11332 [facility] COUNT 4 N N COMPLETE [facility] AUTO&AUTO HOSPITA HOSPITA DIFRNTL WBC RADIOLOGI 64425 [facility] C 4 N N EXAMINATI [facility] COMMUNITY ON CHEST HOSPITA HOSPITA SINGLE VIEW FRONTAL ECG 93688 [facility] ROUTINE 4 N N ECG [facility] W/LEAST HOSPITA HOSPITA 12 LDS TRCG ONLY W/O I&R ECG 27849 PUND CHR PUND CHR ROUTINE 4 ECG W/LEAST 12 LDS I&R ONLY COLLECTIO 48632 [facility] N VENOUS 4 N N BLOOD [facility] VENIPUNCT HOSPITA HOSPITA URE COMPREHEN 48529 [facility] SIVE 4 N N METABOLIC [facility] PANEL HOSPITA HOSPITA COMPUTER- 80215 [place] DELL CAR AIDED 4 MEDICAL DETECTION SERV DX FOUNDATIO MAMMOGRAP N HY DIAGNOSTI G0206 [facility] 4 Y Y [facility] HY INCL CAD WHEN PERF; UNI AMB A0427 [facility] SERVICE 4 AAMIR RUTLEDGE ALS CO EMS CO EMS EMERGENCY TRANSPORT LEVEL 1 GROUND A0425 [facility] MILEAGE 4 AAMIR RUTLEDGE PER CO EMS CO EMS STATUTE MILE ECG 48714 [place] SIGALA ROUTINE 4 MEDICAL NAN ECG SERV W/LEAST FOUNDATIO 12 LDS N I&R ONLY RADIOLOGI 30317 [place] TRUE GEOFF C 4 MEDICAL EXAMINATI SERV ON CHEST FOUNDATIO SINGLE N VIEW FRONTAL MRI BRAIN 95898 [facility] BRAIN 4 Y Y STEM W/O HOSPITAL HOSPITAL W/CONTRAS T MATERIAL ELECTROEN 23660 [place] KARO JEN CEPHALOGR 4 MEDICAL AM EXTND SERV MNTR >1 FOUNDATIO HR N ELECTROEN 28772 [facility] CEPHALOGR 4 Y Y AM W/REC HOSPITAL HOSPITAL AWAKE&ASL EEP INJECTION A9585 [facility] [address] [facility] L 0.1 ML CREATININ 67824 [facility] E BLOOD [address] [facility] CHIROPRAC 33244 [facility] JEANNINE TIC 4 N FAMILY JENNIFER MANIPULAT CHIROPRAC [place] T SPINAL 3-4 REGIONS SCREENING G0202 [facility] 4 Y Y [facility] HY CAROLYN INCL CAD WHEN PERFORMD COMPUTER- [id number] [facility] [address] [facility] SCREENING MAMMOGRAP HY GROUND A0425 [facility] MILEAGE 4 Yolanda-LAUREEN Guerrero-LAUREEN PER CO EMS CO EMS STATUTE MILE AMBULANCE A0429 [facility] SERVICE 4 N-LAUREEN Guerrero-LAUREEN BLS CO EMS CO EMS EMERGENCY TRANSPORT CHIROPRAC 77088 [facility] JEANNINE TIC 4 N FAMILY JENNIFER MANIPULAT CHIROPRAC [place] T SPINAL 3-4 REGIONS LEVEL III 93964 [facility] SURG 4 Y OF DANY PATHOLOGY [place] [facility] GROSS&YELITZA ROSCOPIC EXAM LAPAROSCO 23550 [place] LEELA PY SURG 4 MEDICAL DEANNA CHOLECYST SERV ECTOMY FOUNDATIO N ANES 74597 [place] DORITY INTRAPERI 4 MEDICAL KRISTINA TONEAL SERV UPPER FOUNDATIO ABDOMEN W/LAPS NOS APPL 46912 [facility] JEANNINE MODALITY 4 N FAMILY JENNIFER 1/> AREAS CHIROPRAC TRACTION T MECHANICA L CHIROPRAC 37640 [facility] TIC 4 N FAMILY N FAMILY MANIPULAT CHIROPRAC CHIROPRAC [place] T T SPINAL 3-4 REGIONS THERAPEUT 03511 JUSTIN PAEZ IC PX 1/> 4 N FAMILY JENNIFER AREAS CHIROPRAC EACH 15 T MIN EXERCISES APPL 10648 JUSTIN JEANNINE MODALITY 4 N FAMILY JENNIFER 1/> AREAS CHIROPRAC ELEC T STIMJ UNATTENDE D RADIOLOGI 58846 [place] MONTGOMER C 4 MEDICAL Y JUS EXAMINATI SERV ON PELVIS FOUNDATIO 1/2 VIEWS RADEX HIP 76621 [place] MONTGOMER 4 MEDICAL Y JUS UNILATERA SERV L FOUNDATIO COMPLETE MINIMUM 2 VIEWS RADIOLOGI 43229 [place] SANCHEZ JEN C EXAM 4 MEDICAL CHEST 2 SERV VIEWS FOUNDATIO FRONTAL&L ATERAL CHIROPRAC 47066 GIORGIOGLADISMarivel JEANNINE TIC 4 N FAMILY JENNIFER MANIPULAT CHIROPRAC [place] T SPINAL 3-[address] [place] [address] [place] NICKELS ABDOMEN & 4 MEDICAL NIKKIE PELVIS SERV W/CONTRAS FOUNDATIO T MATERIAL ECG 25351 [place] SIGALA ROUTINE 4 MEDICAL NAN ECG SERV W/LEAST FOUNDATIO 12 LDS N [place] [address] [place] MEDINA RAMY EXTREMITY 4 MEDICAL NON-VASC SERV FOUNDATIO REAL-TIME IMG LMTD LOC Q9967 [facility] 300-399 4 Y Y MG/ML [facility] IODINE CONCENTRA TION PER ML APPL 76446 JUSTIN PAEZ MODALITY 4 N FAMILY JENNIFER 1/> AREAS CHIROPRAC ELEC T STIMJ UNATTENDE D THERAPEUT 18439 JUSTIN PAEZ IC PX 1/> 4 N FAMILY JENNIFER AREAS CHIROPRAC EACH 15 T MIN EXERCISES CHIROPRAC 30501 JUSTIN PAEZ TIC 4 N FAMILY JENNIFER MANIPULAT CHIROPRAC [place] T SPINAL 3-4 REGIONS APPL 24499 JUSTIN PAEZ MODALITY 4 N FAMILY JENNIFER 1/> AREAS CHIROPRAC TRACTION T MECHANICA L APPL 55061 JUSTIN JEANNINE MODALITY 4 N FAMILY JENNIFER 1/> AREAS CHIROPRAC TRACTION T MECHANICA L CHIROPRAC 62456 JUSTIN PAEZ TIC 4 N FAMILY JENNIFER MANIPULAT CHIROPRAC [place] T SPINAL 3-4 REGIONS THERAPEUT 22689 GIORGIOTOMarivel JEANNINE IC PX 1/> 4 N FAMILY JENNIFER AREAS CHIROPRAC EACH 15 T MIN EXERCISES APPL 44204 GIORGIOTOW JEANNINE MODALITY 4 N FAMILY JENNIFER 1/> AREAS CHIROPRAC T ULTRASOUN D EA 15 MIN APPL 11641 GIORGIOTOMarivel JEANNINE MODALITY 4 N FAMILY JENNIFER 1/> AREAS CHIROPRAC ELEC T STIMJ UNATTENDE D APPL 35788 GE[facility]GETOW JEANNINE MODALITY 4 N FAMILY JENNIFER 1/> AREAS CHIROPRAC ELEC T STIMJ UNATTENDE D THERAPEUT 97533 JUSTIN JEANNINE IC PX 1/> 4 N FAMILY JENNIFER AREAS CHIROPRAC EACH 15 T MIN EXERCISES CHIROPRAC 60263 GIORGIOMarivel JEANNINE TIC 4 N FAMILY JENNIFER MANIPULAT CHIROPRAC [place] T SPINAL 3-4 REGIONS APPL 91038 GIORGIONORWICH JEANNINE MODALITY 4 N FAMILY JENNIFER 1/> AREAS CHIROPRAC TRACTION T MECHANICA L GROUND A0425 [facility] MILEA 4 Yolanda-LAUREEN FRENCH CO EMS CO EMS STATUTE MILE AMBULANCE A0429 [facility] SERVICE 4 Yolanda-LAUREEN IVERSON CO EMS CO EMS EMERGENCY TRANSPORT APPL 04009 [facility] JEANNINE MODALITY 4 N FAMILY JENNIFER 1/> AREAS CHIROPRAC ELEC T STIMJ UNATTENDE D APPL 98564 GIORGIOMarivel JEANNINE MODALITY 4 N FAMILY JENNIFER 1/> AREAS CHIROPRAC TRACTION T MECHANICA L CHIROPRAC 32440 JUSTIN JEANNINE TIC 4 N FAMILY JENNIFER MANIPULAT CHIROPRAC [place] T SPINAL 3-4 REGIONS THERAPEUT 01672 JUSTIN JEANNINE IC PX 1/> 4 N FAMILY JENNIFER AREAS CHIROPRAC EACH 15 T MIN EXERCISES THERAPEUT 06227 GIORGIOTOW JEANNINE IC PX 1/> 4 N FAMILY JENNIFER AREAS CHIROPRAC EACH 15 T MIN EXERCISES CHIROPRAC 99163 JUSTIN JEANNINE TIC 4 N FAMILY JENNIFER MANIPULAT CHIROPRAC [place] T SPINAL 3-4 REGIONS APPL 76475 JUSTIN PAEZ MODALITY 4 N FAMILY JENNIFER 1/> AREAS CHIROPRAC TRACTION T MECHANICA L APPL 18945 JUSTIN PAEZ MODALITY 4 N FAMILY JENNIFER 1/> AREAS CHIROPRAC ELEC T STIMJ UNATTENDE D APPL 63701 JUSTIN JEANNINE MODALITY 4 N FAMILY JENNIFER 1/> AREAS CHIROPRAC ELEC T STIMJ UNATTENDE D APPL 79931 JUSTIN PAEZ MODALITY 4 N FAMILY JENNIFER 1/> AREAS CHIROPRAC TRACTION T MECHANICA L THERAPEUT 99847 JUSTIN PAEZ IC PX 1/> 4 N FAMILY JENNIFER AREAS CHIROPRAC EACH 15 T MIN EXERCISES CHIROPRAC 68389 JUSTIN PAEZ TIC 4 N FAMILY JENNIFER MANIPULAT CHIROPRAC [place] T SPINAL 3-4 REGIONS THERAPEUT 54154 JUSTIN PAEZ IC PX 1/> 4 N FAMILY JENNIFER AREAS CHIROPRAC EACH 15 T MIN EXERCISES CHIROPRAC 85716 JUSTIN PAEZ TIC 4 N FAMILY JENNIFER MANIPULAT CHIROPRAC [place] T SPINAL 3-4 REGIONS APPL 61368 JUSTIN PAEZ MODALITY 4 N FAMILY JENNIFER 1/> AREAS CHIROPRAC TRACTION T MECHANICA L RADEX HIP 69668 [place] TREMAYNE 4 MEDICAL SUMMER UNILATERA SERV L FOUNDATIO COMPLETE MINIMUM 2 VIEWS APPL 05353 JUSTIN PAEZ MODALITY 4 N FAMILY JENNIFER 1/> AREAS CHIROPRAC ELEC T STIMJ UNATTENDE D CHIROPRAC 65481 JUSTIN MORALES KRISTINA TIC 4 N FAMILY MANIPULAT CHIROPRAC [place] T SPINAL 3-4 REGIONS CHIROPRAC 89704 MAIKOLMarivel FERRARA KRISTINA TIC 4 N FAMILY MANIPULAT CHIROPRAC [place] T SPINAL 3-4 REGIONS THERAPEUT 76422 JUSTIN MORALES KRISTINA IC PX 1/> 4 N FAMILY AREAS CHIROPRAC EACH 15 T MIN EXERCISES APPL 65136 JUSTIN FERRARA KRISTINA MODALITY 4 N FAMILY 1/> AREAS CHIROPRAC TRACTION T MECHANICA L APPL 99555 JUSTIN ACEVEDO MODALITY 4 N FAMILY 1/> AREAS CHIROPRAC ELEC T STIMJ UNATTENDE D APPL 68936 JUSTIN PAEZ MODALITY 4 N FAMILY JENNIFER 1/> AREAS CHIROPRAC ELEC T STIMJ UNATTENDE D APPL 83910 JUSTIN PAEZ MODALITY 4 N FAMILY JENNIFER 1/> AREAS CHIROPRAC TRACTION T MECHANICA L THERAPEUT 26737 JUSTIN PAEZ IC PX 1/> 4 N FAMILY JENNIFER AREAS CHIROPRAC EACH 15 T MIN EXERCISES CHIROPRAC 00268 JUSTIN PAEZ TIC 4 N FAMILY JENNIFER MANIPULAT CHIROPRAC [place] T SPINAL 3-4 REGIONS CHIROPRAC 73057 JUSTIN PAEZ TIC 4 N FAMILY JENNIFER MANIPULAT CHIROPRAC [place] TX T SPINAL 3-4 REGIONS THERAPEUT 52507 JUSTIN PAEZ IC PX 1/> 4 N FAMILY JENNIFER AREAS CHIROPRAC EACH 15 T MIN EXERCISES CHIROPRAC 43072 JUSTIN PAEZ TIC 4 N FAMILY JENNIFER MANIPULAT CHIROPRAC [place] TX T SPINAL 3-4 REGIONS APPL 96693 JUSTIN PAEZ MODALITY 4 N FAMILY JENNIFER 1/> AREAS CHIROPRAC TRACTION T MECHANICA L APPL 49353 JUSTIN PAEZ MODALITY 4 N FAMILY JENNIFER 1/> AREAS CHIROPRAC ELEC T STIMJ UNATTENDE D CHIROPRAC 50806 JUSTIN PAEZ TIC 4 N FAMILY JENNIFER MANIPULAT CHIROPRAC [place] TX T SPINAL 3-4 REGIONS CHIROPRAC 07146 GIORGIOMarivel ANDERSON TIC 4 N FAMILY N FAMILY MANIPULAT CHIROPRAC CHIROPRAC [place] TX T T SPINAL 3-4 REGIONS CHIROPRAC 33613 JUSTIN PAEZ TIC 4 N FAMILY JENNIFER MANIPULAT CHIROPRAC [place] TX T SPINAL 3-4 REGIONS CHIROPRAC 62114 JUSTIN PAEZ TIC 4 N FAMILY JENNIFER MANIPULAT CHIROPRAC [place] TX T SPINAL 3-4 REGIONS CHIROPRAC 61938 JUSTIN PAEZ TIC 4 N FAMILY JENNIFER MANIPULAT CHIROPRAC [place] TX T SPINAL 3-4 REGIONS CHIROPRAC 62487 [facility] JUSTIN TIC 4 N FAMILY N FAMILY MANIPULAT CHIROPRAC CHIROPRAC [place] T T SPINAL 3-4 REGIONS CHIROPRAC 57142 [facility] JEANNINE TIC 4 N FAMILY JENNIFER MANIPULAT CHIROPRAC [place] TX T SPINAL 3-4 REGIONS CHIROPRAC 65852 [facility] JEANNINE TIC 4 N FAMILY JENNIFER MANIPULAT CHIROPRAC [place] TX T SPINAL 3-4 REGIONS CHIROPRAC 00680 [facility] JEANNINE TIC 4 N FAMILY JENNIFER MANIPULAT CHIROPRAC [place] TX T SPINAL 3-4 REGIONS CHIROPRAC 53718 [facility] JEANNINE TIC 4 N FAMILY JENNIFER MANIPULAT CHIROPRAC [place] TX T SPINAL 3-4 REGIONS RADEX 24203 [facility] JEANNINE SPINE 4 N FAMILY JENNIFER LUMBOSACR CHIROPRAC AL 2/3 T VIEWS RADEX 68273 [facility] JEANNINE SPINE 4 N FAMILY JENNIFER CERVICAL CHIROPRAC 2 OR 3 T VIEWS RADIOLOGI 64514 [facility] C 4 RADIOLOGY ANITA EXAMINATI ASSOC ON CHEST SINGLE VIEW FRONTAL RADEX HIP 21340 [facility] ANDREWS 4 RADIOLOGY III JAM UNILATERA ASSOC L COMPLETE MINIMUM 2 VIEWS RADIOLOGI 56505 [facility] C 4 RADIOLOGY III JAM EXAMINATI ASSOC ON PELVIS 1/[address] THORAX 97817 [place] SANCHEZ JEN W/O 4 MEDICAL CONTRAST SERV MATERIAL FOUNDATIO N CATARACT 18107 [place] CAPOOR REMOVAL 4 MEDICAL SEE INSERTION SERV OF LENS FOUNDATIO ANESTHESI 70637 [place] ROZINA A EYE 4 MEDICAL JESSEE LENS SERVICES SURGERY IAADIADOO 71521 [facility] RABIEE 4 N URGENT [place] [address] [place] AYOOB AND ABDOMEN & 4 MEDICAL PELVIS SERV W/O FOUNDATIO CONTRAST N MATERIAL ECG 87947 [place] KACI CHI ROUTINE 4 MEDICAL ECG SERV W/LEAST FOUNDATIO 12 LDS N I&R ONLY INJECTION J3301 [place] [address] Y Y [facility] LONE ACETONIDE NOS 10 MG ARTHROCEN 70136 [facility] 4 Y Y ASPIR&/IN HOSPITAL HOSPITAL J MAJOR JT/BURSA W/O US OPHTH 10912 AKASH SMITH MEDICAL 4 MEDICAL SEE XM&EVAL SERV COMPRHNSV FOUNDATIO ESTAB PT 1/> OPH BMTRY 92301 AKASH SMITH US 4 MEDICAL SEE ECHOGRAPY SERV A-SCAN FOUNDATIO IO LENS PWR IBIS COMPUTERI 75024 AKASH SMITH ZED 4 MEDICAL SEE OPHTHALMI SERV C IMAGING FOUNDATIO OPTIC NERVE RADIOLOGI 12208 AKASH PARVEEN Uribe 4 MEDICAL KRISTINA EXAMINATI SERV ON CHEST FOUNDATIO SINGLE VIEW FRONTAL RADEX HIP 01476 AKASH PARVEEN 4 MEDICAL KRISTINA UNILATERA SERV L FOUNDATIO COMPLETE N MINIMUM 2 VIEWS ECG 60784 AKASH TAVON KEAGAN ROUTINE 4 MEDICAL ECG SERV W/LEAST FOUNDATIO 12 LDS N I&R ONLY Encounters Encounter Start End Date Code Location Performer Type Date OFFICE 66077 [facility] SURINDER JR OUTPATI 7 7 PHYSICIAN T NEW 20 S GROUP MINUTES [facility] - 7 7 [facility] - 7 7 [facility] 13451 PHIL BERGER 7 7 PHYSICIAN JR [facility] HIGH/URGE NT SEVERITY EMERGENCY 62721 [facility] 7 7 [facility] T VISIT LOW/MODER SEVERITY EMERGENCY 11664 PHIL MUÑIZ DEPT 7 7 PHYSICIAN VISIT S, PLLC HIGH SEVERITY& THREAT [facility] H[facility]PITAL [facility] - 6 6 Y OUTPATI HOSPITAL T EMERGENCY 08697 [facility] 6 6 Y [facility]PITAL T VISIT MODERATE SEVERITY OFFICE 87143 AKASH HOLMAN OUTPATI 6 6 MEDICAL T VISIT SERV 25 FOUNDATIO MINUTES N HOSPITAL [facility] - 6 6 Y OUTPATI HOSPITAL T EMERGENCY 53249 [facility] CE[facility] 6 6 - [facility] T VISIT MODERATE SEVERITY EMERGENCY 25905 [facility] 6 6 N [facility] COMM[facility] T VISIT HOSPITA LIMITED/M INOR [facility] - 6 6 N OUTPATIEN [facility] - 6 6 N OUTPATIEN COMMUNTIY T HOSPITA EMERGENCY 54293 [facility] 6 6 N [facility] COMMUNTIY T VISIT HOSPITA MODERATE SEVERITY OFFICE 93312 [facility] 6 6 [place] T VISIT PHYSICIAN 15 S [facility] - 6 6 N [facility]ICE 36105 [facility] 6 6 Y T VISIT 5 [facility] 30602 [facility] 6 6 MONI [facility] EM[facility] ANDREW T VISIT SERVI MODERATE SEVERITY HOSPITAL [facility] - 6 6 N OUTPATIEN [facility]TIY [facility] - 6 6 N OUTPATIEN COMMUNTIY T HOSPITA EMERGENCY 69051 [facility] 6 6 MONI DEANNA DEPARTMEN EMERGENCY T VISIT SERVI MODERATE SEVERITY EMERGENCY 67357 MICHAEL RODRIGUEZ 6 6 STEVO STEVO DEPARTMEN T VISIT HIGH/URGE NT SEVERITY EMERGENCY 10356 [facility] 6 6 N [facility] COMMUNTIY T VISIT HOSPITA MODERATE SEVERITY HOSPITAL [facility] - 6 6 N OUTPATIEN COMMUNTIY T HOSPITA EMERGENCY 36358 AKASH ROBER 6 6 MEDICAL KARLI [facility] SERV T VISIT FOUNDATIO HIGH/URGE N NT SEVERITY [facility] - 6 6 [facility]ER[facility] 24432 [facility] 6 6 Y [facility] HOSPITAL T VISIT MODERATE SEVERITY [facility] - 6 6 [facility]ERG[facility] 32304 [facility] 6 6 Y [facility] HOSPITAL T VISIT HIGH/URGE NT SEVERITY EMERGENCY 96867 ANN ANN 6 6 MON MON [facility] T VISIT MODERATE SEVERITY OFFICE 74331 [facility] 6 6 [place] FAMILY I DAYAN T VISIT MEDICINE 25 P MINUTES OFFICE 64856 [place] [facility] 6 6 MEDICAL T VISIT SERV 15 FOUNDATIO MINUTES N OFFICE 16387 [facility] 6 6 Y T VISIT 5 [facility] UNIVERS[facility] - 6 6 Y [facility] HOSPITAL T EMERGENCY 29238 [facility] 6 6 N [facility] COMMUNTIY T VISIT HOSPITA HIGH/URGE NT SEVERITY EMERGENCY 68308 [facility] 6 6 N [facility] COMMUNTIY T VISIT HOSPITA MODERATE SEVERITY HOSPITAL [facility] - 6 6 N OUTPATIEN COMMUNTIY T HOSPITA EMERGENCY 53801 MECCARIEL MECCARIEL 6 6 LO [facility] H[facility]URGE NT SEVERITY [facility] - 6 6 N OUTPATIEN COMMUNTIY T HOSPITA EMERGENCY 78932 MICHAEL RODRIGUEZ 6 6 STEVO STEVO DEPARTMEN T VISIT MODERATE SEVERITY HOSPITAL [facility] - 6 6 N OUTPATIEN COMMUNTIY T HOSPITA EMERGENCY 61121 [facility] 6 [facility] HIGH/URGE NT SEVERITY [facility]OSPITAL [facility] - 6 6 N OUTPATIEN COMMUNTIY T HOSPITA EMERGENCY 04401 [facility] 6 [facility] SEVERITY [facility] - 6 6 N OUTPATIEN COMMUNTIY T HOSPITA EMERGENCY 41180 [facility] 6 6 N [facility] MOD[facility] SEVERITY [facility] - 6 6 N OUTPATIEN COMMUNTIY T HOSPITA EMERGENCY 60449 [facility] [place] 6 6 [facility] SERV HIGH/URGE NT SEVERITY [facility] 6 [facility] 84808 [facility] 6 6 Y [facility] T VISIT HIGH/URGE NT SEVERITY EMERGENCY 80650 AKASH LUKEMOREIRA 6 6 MEDICAL YELITZA DEPARTMEN SERV T VISIT FOUNDATIO MODERATE N SEVERITY HOSPITAL [facility] - 6 6 Y [facility] 32586 TOLU BUI SOB OUTPATI 6 [address], [facility] HOSPITAL UNIVERSIT [facility] 5 5 Y [facility]ERGENC[facility] 24009 AKASH HIDALGO 5 5 MEDICAL IRIS DEPARTMEN SERV T VISIT FOUNDATIO HIGH/URGE N NT SEVERITY EMERGENCY 85490 [facility] WHITE 5 5 EMERGENCY RAC [facility] PHYS PSC T VISIT HIGH/URGE NT SEVERITY EMERGENCY 76709 CENTRAL 5 5 [place] [facility] HOSP T VISIT MODERATE SEVERITY HOSPITAL [facility] - 5 5 [facility] 54969 [facility] 5 5 [place] FAMILY RANJEET T VISIT MEDICINE 25 P MINUTES EMERGENCY 84095 UNIVERSIT 5 5 Y [facility] HOSP[facility] T VISIT HIGH/URGE NT SEVERITY HOSPITAL [facility]ERS[facility] - 5 5 Y [facility] 23483 [facility] 5 5 [place] FAM[place] CAT T VISIT MEDICINE 15 P MINUTES EMERGENCY 25817 UNIVERSIT 5 5 Y [facility] HOSPITAL T VISIT MODERATE SEVERITY HOSPITAL UNIVERSIT - 5 5 Y [facility] HOSPITAL T EMERGENCY 29278 [place] ROBER 5 5 MEDICAL KARLI DEPARTMEN SERV T VISIT FOUNDATIO HIGH/URGE N NT SEVERITY HOSPITAL UNIVERSIT - 5 5 Y [facility] HOSPITAL T EMERGENCY 25303 UNIVERSIT DEPT 5 5 Y VISIT HOSPITAL HIGH SEVERITY& [facility] UNIVERSIT [facility] 5 5 Y [facility] T EMERGENCY 28653 [facility] DEPT 5 5 BRO BRO VISIT HIGH SEVERITY& [facility] OFFICE 09924 JUSTIN TEJEDA CONSULTAT 5 5 N MICHAEL ION CARDIOLOG NEW/ESTAB Y PATIENT 60 MIN EMERGENCY 22905 AKASH GARCIA JR 5 5 MEDICAL JEANETTE DEPARTMEN SERV T VISIT FOUNDATIO MODERATE N SEVERITY HOSPITAL UNIVERSIT - 5 5 Y [facility] HOSPITAL T EMERGENCY 27412 UNIVERSIT 5 5 Y [facility] T VISIT HIGH/URGE NT SEVERITY OFFICE 76634 [facility] 5 5 N FAMILY JENNIFER T VISIT CHIROPRAC 10 T MINUTES EMERGENCY 72368 AKASH ROCKY 5 5 MEDICAL IRIS DEPARTMEN SERV T VISIT FOUNDATIO MODERATE N SEVERITY HOSPITAL UNIVERSIT - 5 5 Y [facility] T OFFICE 79170 [facility] 5 5 N URGENT ABD T VISIT CARE 15 MINUTES OFFICE 22299 [facility] 5 5 Y T VISIT 5 HOSPITAL MINUTES OFFICE 78619 AKASH LANDIN [facility] 5 5 MEDICAL CHAD T VISIT SERV 10 FOUNDATIO MINUTES N HOSPITAL UNIVERSIT - 5 5 Y [facility] T OFFICE 08979 AKASH STANLEY [facility] 5 5 MEDICAL MAR T VISIT SERV 15 FOUNDATIO MINUTES N OFFICE 29511 [facility] 5 MEDICAL WAL T VISIT SERV 10 FOUNDATIO MINUTES N OFFICE 46622 [facility] 5 5 [place] FAMILY ELL T VISIT MEDICINE 15 P MINUTES EMERGENCY 19630 UNIVERSIT 5 5 Y [facility] T VISIT MODERATE SEVERITY EMERGENCY 44548 AKASH [place] 5 5 MEDICAL IRIS DEPARTMEN SERV T VISIT FOUNDATIO HIGH/URGE N NT SEVERITY HOSPITAL UNIVERSIT - 5 5 Y [facility] T OFFICE 35861 [facility] 5 MEDICAL WAL T VISIT SERV 15 FOUNDATIO MINUTES N HOSPITAL UNIVERSIT - 5 5 Y [facility] T OFFICE 64753 AKASH LANDIN [facility] 5 5 MEDICAL CHAD T VISIT SERV 15 FOUNDATIO MINUTES N HOME [facility] 5 5 HOME INPATIENT HEALTH AGENC[facility] OFFICE 03053 [facility]ASH [facility] 5 5 MEDICAL SEE T VISIT SERV 15 FOUNDATIO MINUTES N HOME [facility], 5 5 HOME INPATIENT HEALTH AGENCY OFFICE 45050 AKASH LANDIN [facility] 5 5 MEDICAL CHAD T NEW 20 SERV MINUTES FOUNDATIO N OFFICE 75688 [facility] 5 5 [place] T VISIT MEDICINE 15 P MINUTES HOSPITAL UNIVERSIT - 5 5 Y [facility] T OFFICE 67240 [facility] CALL[facility] OSBORN 5 5 MONI III JEANETTE ION PHYSICIAN NEW/ESTAB SERVI PATIENT 60 MIN HOSPITAL UNIVERSIT [facility] 5 5 Y [facility] UNIVERSIT - 5 5 Y [facility] T OFFICE 54645 GIORGIOMarivel PAEZ [facility] 5 5 N FAMILY JENNIFER T VISIT CHIROPRAC 10 T MINUTES OFFICE 55894 [facility] 5 5 [place] JAYDEN T VISIT MEDICINE 15 P [facility] - 5 5 Y [facility] T EMERGENCY 51010 AKASH BAKER 5 5 MEDICAL JIN DEPARTMEN SERV T VISIT FOUNDATIO MODERATE N SEVERITY EMERGENCY 57979 UN[facility]ERSIT 5 5 Y [facility] T VISIT HIGH/URGE NT SEVERITY OFFICE 42108 [facility] 5 5 Y T VISIT [facility] 40 [facility]ERS[facility] 5 5 Y [facility] T OFFICE 74631 AKASH AVTAR HOLMAN [facility] 5 5 MEDICAL T VISIT SERV 15 FOUNDATIO MINUTES N OFFICE 80256 [facility] DIEGOS [facility] 5 5 NURSE BREANNA T VISIT PRACTITIO 15 NER GR [facility] UNIVERSIT - 5 5 Y [facility] T OFFICE 94362 AKASH MARY KATE [facility] 5 5 MEDICAL JEANETTE T VISIT SERV 15 FOUNDATIO MINUTES N OFFICE 78868 [facility] 5 5 Y T VISIT HOSPITAL [facility] 5 5 Y [facility] T HOSPITA EMERGENCY 90440 [facility] 5 5 N [facility] T VISIT HOSPITA MODERATE SEVERITY OFFICE 95068 [facility] 4 4 [place] DAYAN T VISIT MEDICINE 25 P MINUTES [facility]OS[facility] 4 4 N [facility] 29243 [facility] DEPT 4 4 N VISIT COMMUNITY HIGH HOSPITA SEVERITY& THREAT FUNCJ EMERGENCY 43620 AKASH KUMARI 4 4 MEDICAL MAT DEPARTMEN SERV T VISIT FOUNDATIO MODERATE N SEVERITY EMERGENCY 81657 UNIVERSIT 4 4 Y [facility] T VISIT LOW/MODER SEVERITY HOSPITAL UNIVERSIT - 4 4 Y [facility] UN[facility] - 4 4 Y [facility] T OFFICE 07449 UNIV KELESY [facility] 4 4 [place] ELL T VISIT MEDICINE 15 P MINUTES OFFICE 39428 [facility] 4 4 N URGENT ABD T VISIT CARE 15 MINUTES EMERGENCY 89782 AKSAH KUMARI 4 4 MEDICAL MAT DEPARTMEN SERV T VISIT FOUNDATIO HIGH/URGE N NT SEVERITY HOSPITAL UNIVERSIT - 4 4 Y [facility] T OFFICE 24022 AKASH SMITH [facility] 4 4 MEDICAL SEE T VISIT SERV 15 FOUNDATIO MINUTES HOSPITAL UNIVERSIT - 4 4 Y [facility] UNIVERSIT - 4 4 Y [facility] T OFFICE 34295 AKASH HARTMANN [facility] 4 4 MEDICAL JEANETTE T VISIT SERV 40 FOUNDATIO MINUTES N OFFICE 12102 UNIVERSIT OUTPATIEN 4 4 Y T VISIT 5 HOSPITAL MINUTES [facility]OSPITAL [facility] - 4 4 [facility]ITAL [facility]ERS[facility] 4 4 Y [facility] T EMERGENCY 63448 UNIVERSIT 4 4 Y [facility] T VISIT MODERATE SEVERITY EMERGENCY 54012 [place] SLOAS III 4 4 MEDICAL ALEX [facility] SERV T VISIT FOUNDATIO HIGH/URGE N NT SEVERITY OFFICE 19705 SU[facility]HA [facility] CLI CLI T VISIT 15 MINUTES OFFICE 73804 MAIKOL JEANNINE [facility] 4 4 N FAMILY JENNIFER T VISIT CHIROPRAC 10 T MINUTES OFFICE 16099 [facility]KY [facility] 4 4 [place] ARC T VISIT MEDICINE 15 P MINUTES HOSPITAL UNIVERSIT - 4 4 Y [facility] HOSPITAL T OFFICE 76521 [facility] 4 4 Y T VISIT 5 HOSPITAL MINUTES OFFICE 88909 UNIV STEVE DE[facility]NA [facility] [place] T VISIT MEDICINE 15 P MINUTES OFFICE 08198 UNIVERSIT OUTPATIEN 4 4 Y T VISIT 5 HOSPITAL MINUTES OFFICE 00520 [place] AVTAR HOLMAN OUTPATIEN 4 4 MEDICAL T VISIT SERV 15 FOUNDATIO MINUTES HOSPITAL [facility]ERSIT [facility] 4 4 Y [facility]ERSIT - 4 4 Y [facility] 64165 AKASH WOODROW MORRIS OUTPATIEN 4 4 MEDICAL T VISIT SERV 15 FOUNDATIO MINUTES N OFFICE 25901 [facility]ASH [facility] 4 4 MEDICAL DEANNA T VISIT SERV 25 FOUNDATIO MINUTES N OFFICE 32465 GIORGIONORWICH JEANNINE [facility] 4 4 N FAMILY JENNIFER T VISIT CHIROPRAC 10 T MINUTES HOSPITAL [facility]ERSIT - 4 4 [facility] T EMERGENCY 43436 [place] BLUNT PANCHO 4 4 MEDICAL DEPARTMEN SERV T VISIT FOUNDATIO HIGH/URGE N NT SEVERITY [facility] - 4 4 [facility] 24567 [facility] 4 4 [place] RANJEET T VISIT MEDICINE 15 P MINUTES OFFICE 70897 [facility] N FAMILY JENNIFER T VISIT CHIROPRAC 10 T MINUTES OFFICE 51230 [facility] OUTPATIEN 4 4 NEUROLOGY CHRIS T NEW CENTER MINUTES JONY OFFICE 12726 [facility] FAMILY JENNIFER T NEW CHIROPRAC MINUTES T HOSPITAL CENTRAL - 4 4 [facility] OUTPATIEN HOSP T EMERGENCY 13281 [facility] 4 4 [facility] DEPARTMEN HOSP T VISIT MODERATE SEVERITY HOSPITAL CENTRAL - 4 4 [facility] OUT[facility] T EMERGENCY 68381 [facility] 4 4 EMERGENCY DEPARTMEN PHYS PSC T VISIT HIGH/URGE NT SEVERITY OFFICE 20880 [facility] 4 4 [place] I DAYAN T VISIT MEDICINE 15 P MINUTES HOSPITAL UNIVERSIT - 4 4 Y [facility] T OFFICE 60434 AKASH WOODROW HAS OUTPATIEN 4 4 MEDICAL T VISIT SERV 15 FOUNDATIO MINUTES HOSPITAL UNIVERSIT - 4 4 Y [facility] T OFFICE 21492 [facility] MAR[facility] OUTPATIEN 4 4 N URGENT ABD T NEW CARE MINUTES OFFICE 33007 AKASH MUSE JR OUTPATIEN 4 4 MEDICAL SULAIMAN T VISIT SERV 25 FOUNDATIO MINUTES EMERGENCY 43504 AKASH JOHNSON 4 4 MEDICAL CAROLYN DEPARTMEN SERV T VISIT FOUNDATIO HIGH/URGE NT SEVERITY [facility] - 4 4 Y [facility] T OFFICE 61850 [place] [facility] [place] [facility]ER[facility]ENC[facility] DEPARTMENT 4 4 MEDICAL T VISIT SERV 15 FOUNDATIO MINUTES [facility] - 4 4 Y [facility] T OFFICE 01094 [facility] 4 4 [place] I DAYAN T VISIT MEDICINE 15 P MINUTES EMERGENCY 42989 AKASH BAKER 4 4 MEDICAL JIN DEPARTMEN SERV T VISIT FOUNDATIO HIGH/URGE N NT SEVERITY
[2017-05-18 06:01] LABS: URINE BILIRUBIN - DIPSTICK NEGATIVE (NEG); URINE BLOOD NEGATIVE (NEG)
--- OUTSIDE RECORDS SUMMARY | 2017-05-18 06:01 | External Medical Summary Rpt | CCD ---
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 02 05 0 30 30 ME 14 GA Ac RA 78 -1 -0 0. D 15 IN ti TA 15 7- 8- 00 CA 68 EY ve DI 07 20 20 0 RE 53 NE 70 17 17 PR 1 PH CH 10 AR AE MA L MG CY S TA LL BL C ET 00 02 05 0 30 30 ME 14 GA Ac PI 90 -1 -0 0. D 15 IN ti RI 46 7- 8- 00 CA 68 EY ve N 28 20 20 0 RE 54 81 88 17 17 PR 9 PH CH MG AR AE MA L CH CY S EW AB LL LE C TA BL ET CA 00 02 05 0 30 30 ME 14 GA Ac LC 53 -1 -0 0. D 15 IN ti IU 61 7- 8- 00 CA 68 EY ve M 04 20 20 0 RE 56 AN 81 17 17 PR TA 5 PH CH CI AR AE D MA L 50 CY S 0 MG LL C CH W TA B ME 00 02 05 0 60 30 ME 14 GA Ac LA 90 -1 -0 0. D 16 IN ti TO 45 8- 8- 00 CA 69 EY ve NI 18 20 20 0 RE 08 N 25 17 17 PR 3 2 PH CH MG AR AE MA L TA CY S BL ET LL C DO 45 02 04 0 60 30 ME 14 GA Ac CU 80 -1 -1 0. D 04 IN ti SA 20 7- 4- 00 CA 55 EY ve TE 48 20 20 0 RE 10 67 17 17 PR SO 8 PH CH DI AR AE UM MA L CY S 10 0 LL MG C SO FT GE L ME 00 02 04 0 60 30 ME 14 GA Ac LA 90 -1 -1 0. D 04 IN ti TO 45 8- 4- 00 CA 55 EY ve NI 18 20 20 0 RE 13 N 25 17 17 PR 3 2 PH CH MG AR AE MA L TA CY S BL ET LL C 00 02 04 0 30 30 ME 14 GA Ac PI 90 -1 -1 0. D 03 IN ti RI 46 7- 2- 00 CA 81 EY ve N 28 20 20 0 RE 02 81 88 17 17 PR 9 PH CH MG AR AE MA L CH CY S EW AB LL LE C TA BL ET CA 00 02 04 0 30 30 ME 14 GA Ac LC 53 -1 -1 0. D 03 IN ti IU 61 7- 2- 00 CA 81 EY ve M 04 20 20 0 RE 04 AN 81 17 17 PR TA 5 PH CH CI AR AE D MA L 50 CY S 0 MG LL C CH W TA B LO 00 02 04 0 30 30 ME 14 GA Ac RA 78 -1 -1 0. D 03 IN ti TA 15 7- 2- 00 CA 81 EY ve DI 07 20 20 0 RE 05 NE 70 17 17 PR 1 PH CH 10 AR AE MA L MG CY S TA LL BL C ET Procedures Procedure DOS Code Location Performer Comment CATH PLMT 99187 [facility] HRT & 7 PHYSICIAN ARTS S GROUP W/NJX & ANGIO IMG S&I SLCTV 34181 [facility] 7 PHYSICIAN 1STORD S GROUP W/WO ART PUNCT/FLU OR/S&I CAROLYN RADIOLOGI 97082 [facility] EXAM 7 MEDICAL CHEST 2 IMAGING VIEWS ASS FRONTAL&L ATERAL ECG 59557 [facility] 7 PHYSICIAN ECG S, PLLC W/LEAST 12 LDS I&R ONLY INITIAL 24422 [facility] 7 PHYSICIAN CARE/DAY S GROUP 70 MINUTES CRITICAL 42716 [facility] 7 PHYSICIAN ILL/INJUR S, [facility] IN[facility] 30-74 MIN GROUND A0425 [facility] MILEAGE 7 AMBULANCE AMBULANCE PER SERVICE SERVICE STATUTE MILE AMBULANCE A0429 [facility] SERVICE 7 AMBULANCE AMBULANCE BLS SERVICE SERVICE EMERGENCY TRANSPORT NONEMERG A0120 FEDER[facility] FEDERATED TRNSPRT: 7 MINI-BUS TRANSPORT TRANSPORT MTN ATION SER ATION SER AREA/OTH SYS ECG 65730 ROMEO IQBAL JR ROUTINE [address] [facility] W/LEAST P 12 LDS I&R ONLY ECG 02650 [facility] WALTERS ROUTINE 7 [facility] ECG INC INC W/LEAST 12 LDS W/I&R THERAPEUT 09315 [facility] WALTER[facility] IC 7 MEM HOSP MEM [facility]OSP PROPHYLAC INC INC TIC/DX INJECTION SUBQ/IM RADEX HIP 96025 [place] [facility] 7 MEDICAL UNILATERA IMAGING L WITH ASS PELVIS 2-3 VIEWS GROUND A0425 [facility] PER SERVICE SERVICE STATUTE MILE AMBULANCE A0429 [facility] SERVICE 7 AMBULANCE AMBULANCE BLS SERVICE SERVICE EMERGENCY TRANSPORT BASIC 62746 [facility] METABOLIC 7 TIFFANIE TIFFANIE PANEL HOLDINGS HOLDINGS CALCIUM TOTAL DRUG 04868 [facility] SCREEN 7 TIFFANIE TIFFANIE QUANTITAT HOLDINGS HOLDINGS MARVA PHENYTOIN TOTAL BASIC 99928 [facility] LAB YARI METABOLIC 7 TIFFANIE TIFFANIE [employer] [place] [address] [place] [facility] HEAD/BRAI 7 MEDICAL N W/O IMAGING CONTRAST ASS MATERIAL GROUND A0425 [facility]ANCE AMBULANCE PER SERVICE SERVICE STATUTE MILE AMB A0427 [facility] SERVICE 7 AMBULANCE AMBULANCE ALS SERVICE SERVICE EMERGENCY TRANSPORT LEVEL 1 NONEMERG A0120 [facility] TRNSPRT: 6 GRASS ULTRA MINI-BUS COMMUNITY TRANSIT MTN ACTION SERV AREA/OTH SYS NONEMERG A0120 [facility] TRNSPRT: 6 GRASS ULTRA MINI-BUS COMMUNITY TRANSIT MTN ACTION SERV AREA/OTH SYS RADEX 59928 [place] [facility] HIPS 6 MEDICAL BAR BILATERAL SERV WITH FOUNDATIO PELVIS N 3-4 VIEWS ARTHROCEN 20149 [facility] TES 6 Y Y ASPIR&/IN HOSPITAL HOSPITAL J MAJOR JT/BURSA W/O US RADEX 27003 [facility] H[facility] 6 Y Y BILATERAL HOSPITAL HOSPITAL WITH PELVIS 3-4 VIEWS INJECTION J3301 [facility] 6 Y Y [facility] L[facility] AC[facility]ON[facility] NOS 10 MG NONEMERG A0120 [facility] TRNSPRT: 6 GRASS ULTRA MINI-BUS COMMUNITY TRANSIT MTN ACTION SERV AREA/OTH SYS GROUND A0425 [facility] MILEAGE 6 Yolanda-LAUREEN RUTLEDGE PER CO EMS CO EMS STATUTE MILE AMBULANCE A0429 [facility] 6 Yolanda-LAUREEN RUTLEDGE BLS CO [place] [address] [facility] [place] OLMEDO ABDOMEN & 6 RADIOLOGY RAY PELVIS W/CONTRAS T MATERIAL AMBULANCE A0429 [facility] 6 N-LAUREEN RUTLEDGE BLS CO EMS CO EMS EMERGENCY TRANSPORT GROUND A0425 [facility] MILEAGE 6 Yolanda-LAUREEN RUTLEDGE PER CO EMS CO EMS STATUTE MILE GROUND A0425 [facility] MILEA 6 Yolanda-LAUREEN RUTLEDGE PER CO EMS CO EMS STATUTE MILE AMBULANCE A0429 [facility] SERVICE 6 N-LAUREEN RUTLEDGE BLS CO EMS CO EMS EMERGENCY TRANSPORT AMBULANCE A0429 [facility] SERVICE 6 Yolanda-LAUREEN RUTLEDGE BLS CO EMS CO EMS EMERGENCY TRANSPORT GROUND A0425 [facility] MILEAGE 6 Yolanda-LAUREEN RUTLEDGE PER CO EMS CO EMS STATUTE MILE RADEX HIP 21674 [facility] [place] SCALF CHAD 6 RADIOLOGY UNILATERA L WITH PELVIS 2-3 VIEWS NONEMERG A0120 [facility] TRNSPRT: 6 GRASS ULTRA MINI-BUS COMMUNITY TRANSIT MTN ACTION SERV AREA/OTH SYS NONEMERG A0120 [facility] OREILLY TRNSPRT: 6 GRASS ULTRA MINI-BUS COMMUNITY TRANSIT MTN ACTION SERV AREA/OTH SYS PHYSICAL 33774 [facility] THERAPY 6 N N EVALUATIO COMMUNTIY COMMUNTIY N HOSPITA HOSPITA APPL 60463 [facility] MODALITY 6 N N 1/> AREAS COMMUNTIY COMMUNTIY HOSPITA HOSPITA IONTOPHOR ESIS EA 15 MIN SELF-CARE 36820 [facility] /HOME 6 N N MGMT COMMUNTIY COMMUNTIY TRAINING HOSPITA HOSPITA EACH 15 MINUTES ARTHROCEN 92010 [place] AVTAR SAMANO 6 MEDICAL ASPIR&/IN SERV J MAJOR FOUNDATIO JT/BURSA N W/O US INJECTION J3301 [address] LONE ACETONIDE NOS 10 MG NONEMERG A0120 [facility] OREILLY TRNSPRT: 6 GRASS ULTRA MINI-BUS COMMUNITY TRANSIT MTN ACTION SERV AREA/OTH SYS GROUND A0425 [facility] 6 Yolanda-LAUREEN RUTLEDGE PER CO EMS CO EMS STATUTE MILE AMBULANCE A0429 [facility] 6 Yolanda-LAUREEN CRS CO EMS CO EMS EMERGENCY TRANSPORT AMBULANCE A0429 [facility] SERVICE 6 Yolanda-LAUREEN CRS CO EMS CO EMS EMERGENCY TRANSPORT GROUND A0425 [facility] 6 AAMIR RUTLEDGE PER CO EMS CO EMS STATUTE MILE RADEX HIP 32627 [facility] [place] RADMANESH 6 RADIOLOGY SHA UNILATERA L WITH PELVIS 2-3 VIEWS GROUND A0425 [facility] 6 AAMIR RUTLEDGE PER CO EMS CO EMS STATUTE MILE AMBULANCE A0429 [facility] SERVICE 6 Yolanda-LAUREEN RUTLEDGE BLS CO EMS CO EMS EMERGENCY TRANSPORT COLLECTIO 28623 [facility] N VENOUS 6 N N BLOOD COMMUNTIY COMMUNTIY [place] [address] [facility] TROPONIN 6 N N QUANTITAT COMMUNTIY COMMUNTIY MARVA HOSPITA HOSPITA CUL BACT 33092 [facility] XCPT 6 N N URINE COMMUNTIY COMMUNTIY BLOOD/STO HOSPITA HOSPITA OL AEROBIC ISOL IAADIADOO 17467 [facility] 6 N N STREPTOCO COMMUNTIY COMMUNTIY CCUS HOSPITA HOSPITA GROUP A ECG 35264 [facility] ROUTINE 6 N N ECG COMMUNTIY COMMUNTIY W/LEAST HOSPITA HOSPITA 12 LDS TRCG ONLY W/O I&R ECG 05957 [facility] ROUTINE 6 Y Y ECG HOSPITAL HOSPITAL W/LEAST 12 LDS TRCG ONLY W/O I&R RADEX 63857 [facility] ANKLE 6 Y Y COMPLETE HOSPITAL HOSPITAL MINIMUM 3 VIEWS RADEX 27010 [facility] FOOT 6 Y Y COMPLETE HOSPITAL HOSPITAL [place] [place] [address] [facility] THORACIC 6 Y Y SPINE W/[place] [address] [facility] CERVICAL 6 Y Y SPINE W/O HOSPITAL HOSPITAL CONTRAST MATERIAL ECG 38642 [place] KACI CHI ROUTINE 6 MEDICAL ECG SERV W/LEAST FOUNDATIO 12 LDS N I&R ONLY RADIOLOGI 77109 [facility] C [address] [facility] HOSPITAL ON TIBIA & FIBULA [address] LUMBAR 86018 [facility] SPINE 6 Y Y W/[place] [address] [facility] HEAD/BRAI 6 Y Y N W/O HOSPITAL HOSPITAL CONTRAST MATERIAL RADEX HIP 05093 [facility] [place] SCALF CHAD 6 RADIOLOGY UNILATERA L WITH PELVIS 2-3 VIEWS AMBULANCE A0429 [facility] SERVICE 6 Yolanda-LAUREEN RUTLEDGE BLS CO EMS CO EMS EMERGENCY TRANSPORT GROUND A0425 [facility] MILEA 6 N-LAUREEN RUTLEDGE PER CO EMS CO EMS STATUTE MILE GROUND A0425 [facility] 6 Yolanda-LAUREEN RUTLEDGE PER CO EMS CO EMS STATUTE MILE AMBULANCE A0429 [facility] 6 Yolanda-LAUREEN RUTLEDGE BLS CO EMS CO EMS EMERGENCY TRANSPORT GROUND A0425 [facility] 6 Yolanda-LAUREEN RUTLEDGE PER CO EMS CO EMS STATUTE MILE AMB A0427 [facility] 6 Yolanda-LAUREEN RUTLEDGE ALS CO EMS CO EMS EMERGENCY TRANSPORT LEVEL 1 GROUND A0425 [facility] 6 Yolanda-LAUREEN RUTLEDGE PER CO EMS CO EMS STATUTE MILE AMBULANCE A0429 [facility] 6 N-LAUREEN RUTLEDGE BLS CO EMS CO EMS EMERGENCY TRANSPORT RADIOLOGI 41313 CN[facility] AKASH Uribe 6 RADIOLOGY III EXAMINATI ON PELVIS 1/[address] [place] [address] AK[facility] ABDOMEN & 6 [facility] PELVIS SERV W/O FOUNDATIO CONTRAST N MATERIAL NONEMERG A0120 [facility] TRNSPRT: 6 [facility] ULTRA MINI-BUS COMMUNITY TRANSIT MTN ACTION SERV AREA/OTH SYS NONEMERG A0120 [facility] TRNSPRT: 6 GRASS ULTRA MINI-BUS COMMUNITY TRANSIT MTN ACTION SERV AREA/OTH SYS RADEX 62263 [facility] [address] [facility] WITH PELVIS MINIMUM 5 VIEWS GROUND A0425 [facility] 6 AAMIR RUTLEDGE PER CO EMS CO EMS STATUTE MILE AMBULANCE A0429 [facility] SERVICE 6 Yolanda-LAUREEN RUTLEDGE BLS CO EMS CO EMS EMERGENCY TRANSPORT GROUND A0425 [facility] 6 AAMIR RUTLEDGE PER CO EMS CO EMS STATUTE MILE AMB A0427 [facility] 6 Yolanda-LAUREEN RUTLEDGE ALS CO EMS CO EMS EMERGENCY TRANSPORT LEVEL 1 ECG 05106 ROMEO WALTERS ROUTINE 6 SCO SCO ECG W/LEAST 12 LDS I&R ONLY URNLS DIP 71726 [facility] 6 N N STICK/TAB COMMUNTIY COMMUNTIY LET HOSPITA 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 AUTO MICROSCOP Y DRUG TEST G0479 [facility] 6 N N PRESUMP;I COMMUNTIY COMMUNTIY NSTRUMENT HOSPITA HOSPITA ED CHEMISTRY ANLYZER ECG 60053 [facility] ROUTINE 6 N N ECG COMMUNTIY COMMUNTIY W/LEAST HOSPITA HOSPITA 12 LDS TRCG ONLY W/O I&R THER 87368 [facility] PROPH/DX 6 N N NJX IV COMMUNTIY COMMUNTIY PUSH HOSPITA HOSPITA SINGLE/1S T SBST/DRUG CHIROPRAC 81681 [facility] JEANNINE TIC 6 N FAMILY JENNIFER MANIPULAT CHIROPRAC [place]VA [place] T SPINAL 3-4 REGIONS APPL 54115 [facility] JEANNINE MODALITY 6 N FAMILY JENNIFER 1/> AREAS CHIROPRAC TRACTION T MECHANICA L THERAPEUT 79611 [facility] IC 6 N N INJECTION COMMUNTIY COMMUNTIY IV PUSH HOSPITA HOSPITA EACH NEW DRUG INJECTION J2765 [facility] 6 N N METOCLOPR COMMUNTIY COMMUNTIY AMIDE HCL HOSPITA HOSPITA UP TO 10 MG INJECTION J1200 [facility] 6 N N DIPHENHYD COMMUNTIY COMMUNTIY RAMINE HOSPITA HOSPITA HCL UP TO 50 MG INJECTION J1885 [facility] 6 N N KETOROLAC COMMUNTIY COMMUNTIY HOSPITA HOSPITA TROMETHAM INE PER 15 MG GROUND A0425 [facility] MILEAGE 6 AAMIR FRENCH IA EMS CO EMS STATUTE MILE AMBULANCE A0429 [facility] SERVICE 6 AAMIR IVERSON CO EMS CO EMS EMERGENCY TRANSPORT AMBULANCE A0429 [facility] SERVICE 6 AAMIR IVERSON [place] EMS CO EMS EMERGENCY TRANSPORT GROUND A0425 [facility] MILEAGE 6 N-LAUREEN Guerrero-LAUREEN PER CO EMS CO EMS STATUTE MILE RADIOLOGI 00586 [facility] [place] SCALF CHAD C 6 RADIOLOGY EXAMINATI ON PELVIS 1/2 VIEWS THERAPEUT 85281 [facility] IC 6 N N INJECTION COMMUNTIY COMMUNTIY IV PUSH [place] [address] [facility] INFUSION 6 N N HYDRATION COMMUNTIY COMMUNTIY EACH HOSPITA HOSPITA ADDITIONA L HOUR THER 32595 [facility] PROPH/DX 6 N N NJX IV COMMUNTIY COMMUNTIY PUSH HOSPITA HOSPITA SINGLE/1S T SBST/DRUG INJECTION J1885 [facility] 6 N N KETOROLAC COMMUNTIY COMMUNTIY HOSPITA HOSPITA TROMETHAM INE PER 15 MG INJECTION J1200 [facility] 6 N N DIPHENHYD COMMUNTIY COMMUNTIY RAMINE HOSPITA HOSPITA HCL UP TO 50 MG INFUSION J7030 [facility] NORMAL 6 N N SALINE COMMUNTIY COMMUNTIY SOLUTION HOSPITA HOSPITA 1000 CC INJECTION J2765 [facility] 6 N N METOCLOPR COMMUNTIY COMMUNTIY AMIDE HCL HOSPITA HOSPITA UP TO 10 MG INJECTION J2360 [facility] 6 N N ORPHENADR COMMUNTIY COMMUNTIY INE HOSPITA HOSPITA CITRATE UP TO 60 MG GROUND A0425 [facility] Yolanda-LAUREEN Guerrero-LAUREEN PER CO EMS CO EMS STATUTE MILE AMBULANCE A0429 [facility] SERVICE 6 Yolanda-LAUREEN Guerrero-LAUREEN BLS CO EMS CO EMS EMERGENCY TRANSPORT THERAPEUT 47547 [facility] IC 6 N N PROPHYLAC COMMUNTIY COMMUNTIY TIC/DX HOSPITA HOSPITA INJECTION SUBQ/IM THERAPEUT 28603 [facility] IC 6 N N PROPHYLAC COMMUNTIY COMMUNTIY TIC/DX HOSPITA HOSPITA INJECTION SUBQ/IM RADEX HIP 55633 [facility] [place] ARREAGA 6 RADIOLOGY GEETHA UNILATERA L WITH PELVIS 2-3 VIEWS AMBULANCE A0429 [facility] 6 AAMIR CRS CO EMS CO EMS EMERGENCY TRANSPORT GROUND A0425 [facility] MILEA 6 Yolanda-LAUREEN RUTLEDGE PER CO EMS CO EMS STATUTE MILE INJECTION J2360 [facility] 6 N N ORPHENADR COMMUNTIY COMMUNTIY INE HOSPITA HOSPITA CITRATE UP TO 60 MG NONEMERG A0120 [facility] TRNSPRT: 6 GRASS ULTRA MINI-BUS COMMUNITY TRANSIT MTN ACTION SERV AREA/OTH SYS GROUND A0425 [facility] 6 AAMIR RUTLEDGE PER CO EMS CO EMS STATUTE MILE AMBULANCE A0429 [facility] 6 AAMIR CRS CO EMS CO EMS EMERGENCY TRANSPORT RADEX HIP 64374 AKASH CRUZ 6 MEDICAL BAR UNILATERA SERV L WITH FOUNDATIO PELVIS N 2-3 VIEWS RADIOLOGI 82058 AKASH Uribe 6 MEDICAL BAR EXAMINATI SERV ON FEMUR FOUNDATIO MINIMUM 2 N VIEWS SCREENING [address] TOMOSYNTH ESIS BI COMPUTER- [address] SCREENING MAMMOGRAP HY SCREENING G0202 [address] HY CAROLYN INCL CAD WHEN PERFORMD NONEMERG A0120 [facility] TRNSPRT: 6 [facility] ULTRA MINI-BUS COMMUNITY TRANSIT MTN ACTION SERV AREA/OTH SYS NONEMERG A0120 [facility] TRNSPRT: 6 [facility] ULTRA MINI-BUS COMMUNITY TRANSIT MTN ACTION SERV AREA/OTH SYS NONEMERG A0120 [facility] TRNSPRT: 5 GR[facility] ULTRA MINI-BUS COMMUNITY TRANSIT MTN ACTION SERV AREA/OTH SYS AMB A0427 [facility] 5 AAMIR RUTLEDGE ALS CO EMS CO EMS EMERGENCY TRANSPORT LEVEL 1 GROUND A0425 [facility] MILEA 5 AAMIR RUTLEDGE [place] [address] AKASH BESS HEAD/BRAI 5 MEDICAL KATI N W/O SERV CONTRAST FOUNDATIO MATERIAL N RADEX 44145 [facility] SPINE 5 RADIOLOGY CERVICAL ASSOC 2 OR 3 VIEWS RADEX 00784 [facility] SPINE 1 5 RADIOLOGY VIEW ASSOC SPECIFY LEVEL CHIROPRAC 95877 [facility] PAEZ TIC 5 N FAMILY JENNIFER MANIPULAT CHIROPRAC [place]VA [place] T SPINAL 3-4 REGIONS ECG 80368 AKASH HERNANDEZG ANDREW ROUTINE 5 MEDICAL ECG SERV W/LEAST FOUNDATIO 12 LDS N I&R ONLY ECG 39426 AKASH KACI CHI ROUTINE 5 MEDICAL ECG SERV W/LEAST FOUNDATIO 12 LDS N I&R ONLY BLOOD 53373 [facility] COUNT [address] [facility] [place] [address] [facility] TROPONIN 5 Y Y QUANTITAT [facility] MARVA RADIOLOGI [address]37 [place] KANDICE C 5 MEDICAL BREANNA EXAMINATI SERV ON CHEST [place] [address] [facility] ABDOMEN & 5 Y Y PELVIS [facility] W/CONTRAS T MATERIAL RADIOLOGI 22271 [facility] C 5 Y Y EXAMINATI [facility] ON PELVIS 1/2 VIEWS LOCM Q9967 [facility] [phone] Y Y MG/ML [facility] IODINE CONCENTRA TION PER ML COMPREHEN 07023 [facility] SIVE 5 Y Y METABOLIC [facility] PANEL ECG 40516 [facility] ROUTINE 5 Y Y ECG [facility] W/LEAST 12 LDS TRCG ONLY W/O I&R CHIROPRAC 54858 GI[facility] PAEZ TIC 5 N FAMILY JENNIFER MANIPULAT CHIROPRAC [place] T SPINAL 3-4 REGIONS CHIROPRAC 88093 [facility] JEANNINE TIC 5 N FAMILY JENNIFER MANIPULAT CHIROPRAC [place] T SPINAL 3-4 REGIONS APPL 08914 [facility] JEANNINE MODALITY 5 N FAMILY JENNIFER 1/> AREAS CHIROPRAC TRACTION T MECHANICA L APPL 99857 [facility] JEANNINE MODALITY 5 N FAMILY JENNIFER 1/> AREAS CHIROPRAC ELEC T STIMJ EA 15 MIN [place]UT 34867 [facility] EXPRESSMarivel PAEZ IC PX 1/> 5 N FAMILY JENNIFER AREAS CHIROPRAC EACH 15 T MIN EXERCISES RADIOLOGI 96449 [facility] [place] C 5 RADIOLOGY RHO EXAMINATI ON CHEST SINGLE VIEW FRONTAL OBSERVATI 03675 [facility] AIMEE ON CARE 5 HUG HUG DISCHARGE MANAGEMEN T SBSQ 80500 [facility] OBSERVATI 5 N MICHAEL ON CARDIOLOG CARE/DAY Y 25 MINUTES AMB [id number] [facility] SERVICE 5 AAMIR RUTLEDGE ALS CO EMS CO EMS EMERGENCY TRANSPORT LEVEL 1 GROUND A0425 [facility] MILEAGE 5 AAMIR RUTLEDGE PER CO EMS CO EMS STATUTE MILE RADIOLOGI 43375 [facility] C 5 BRO BRO EXAMINATI [place] [address] [facility] [place] HEAD/BRAI 5 RADIOLOGY RHO N W/O CONTRAST MATERIAL ECG 95014 [facility] AIMEE ROUTINE 5 HUG HUG ECG W/LEAST 12 LDS I&R ONLY CV STRS 05848 [facility] TEJEDA TST 5 N MICHAEL XERS&/OR CARDIOLOG RX CONT Y ECG I&R ONLY RADEX 04203 [facility] [place] HIPS 5 RADIOLOGY RHO BILATERAL 2 VIEWS ANTEROPOS T PELVIS ECHO 31079 JUSTIN TEJEDA TTHRC R-T 5 N MICHAEL 2D CARDIOLOG W/WOM-MOD Y E COMPL SPEC&COLR D CV STRS 89280 [facility] TEJED[facility] TST 5 N MICHAEL XERS&/OR CARDIOLOG RX CONT Y ECG W/O I&R MYOCARDIA 07003 [facility] TEJEDA L SPECT 5 N MICHAEL MULTIPLE CARDIOLOG STUDIES Y INITIAL 50318 [facility]EE AIMEE OBSERVATI 5 HUG HUG ON CARE/DAY 70 MINUTES APPL 93287 [facility] JEANNINE MODALITY 5 N FAMILY JENNIFER 1/> AREAS CHIROPRAC ELEC T STIMJ UNATTENDE D APPL 82653 [facility] JEANNINE MODALITY 5 N FAMILY JENNIFER 1/> AREAS CHIROPRAC TRACTION T MECHANICA L CHIROPRAC 71682 [facility] JEANNINE TIC 5 N FAMILY JENNIFER MANIPULAT CHIROPRAC [place] T SPINAL 3-4 REGIONS APPL 74416 [facility] JEANNINE MODALITY 5 N FAMILY JENNIFER 1/> AREAS CHIROPRAC TRACTION T MECHANICA L APPL 77516 [facility] JEANNINE MODALITY 5 N FAMILY JENNIFER 1/> AREAS CHIROPRAC ELEC T STIMJ UNATTENDE D CHIROPRAC 74684 [facility] JEANNINE TIC 5 N FAMILY JENNIFER MANIPULAT CHIROPRAC [place] T SPINAL 3-4 REGIONS APPL 17322 [place] JEANNINE MODALITY 5 N FAMILY JENNIFER 1/> AREAS CHIROPRAC ELEC T STIMJ UNATTENDE D APPL 84505 [place] JEANNINE MODALITY 5 N FAMILY JENNIFER 1/> AREAS CHIROPRAC TRACTION T MECHANICA L CHIROPRAC 21085 [place] JEANNINE TIC 5 N FAMILY JENNIFER MANIPULAT CHIROPRAC [place] T SPINAL 3-4 REGIONS CHIROPRAC 72534 [place] JEANNINE TIC 5 N FAMILY JENNIFER MANIPULAT CHIROPRAC [place] T SPINAL 3-4 REGIONS APPL 58616 [place] JEANNINE MODALITY 5 N FAMILY JENNIFER 1/> AREAS CHIROPRAC TRACTION T MECHANICA L APPL 79615 [place] JEANNINE MODALITY 5 N FAMILY JENNIFER 1/> AREAS CHIROPRAC ELEC T STIMJ UNATTENDE D THERAPEUT 92495 [place] JEANNINE IC PX 1/> 5 N FAMILY JENNIFER AREAS CHIROPRAC EACH 15 T MIN EXERCISES COMPREHEN 08388 [facility] [address] [facility]PITAL PANEL BLOOD 66352 UNIVERSIT UNIVERSIT COUNT 5 Y Y COMPLETE [facility] AUTO&AUTO DIFRNTL WBC COLLECTIO 94498 [facility] N VENOUS 5 Y Y BLOOD [facility] VENIPUNCT URE RADIOLOGI 81833 [place] NICKELS C 5 MEDICAL NIKKIE EXAMINATI SERV ON PELVIS FOUNDATIO 1/2 N VIEWS CHIROPRAC 88167 [facility] EXPRESSMarivel PAEZ TIC 5 N FAMILY JENNIFER MANIPULAT CHIROPRAC [place] T SPINAL 3-4 REGIONS GROUND A0425 [facility] MILEAGE 5 Yolanda-LAUREEN RUTLEDGE PER CO EMS CO EMS STATUTE MILE AMBULANCE A0429 [facility] SERVICE 5 Yolanda-LAUREEN RUTLEDGE BLS CO EMS CO EMS EMERGENCY TRANSPORT CHIROPRAC 26904 GIORGIOMarivel PAEZ TIC 5 N FAMILY JENNIFER MANIPULAT CHIROPRAC [place] T SPINAL 3-4 REGIONS IAADIADOO 30273 [facility] RABIEE 5 N URGENT [place] [address] [place]IL[place] KWA HEAD/BRAI 5 MEDICAL N W/O SERV CONTRAST FOUNDATIO MATERIAL N ECG 95148 [place] KACI CHI ROUTINE 5 MEDICAL ECG SERV W/LEAST FOUNDATIO 12 LDS N I&R ONLY CHIROPRAC 22915 JUSTIN PAEZ TIC 5 N FAMILY JENNIFER MANIPULAT CHIROPRAC [place] T SPINAL 3-4 REGIONS APPL 88277 JUSTIN PAEZ MODALITY 5 N FAMILY JENNIFER 1/> AREAS CHIROPRAC TRACTION T MECHANICA L APPL 37809 JUSTIN PAEZ MODALITY 5 N FAMILY JENNIFER 1/> AREAS CHIROPRAC ELEC T STIMJ UNATTENDE D CHIROPRAC 79102 JUSTIN PAEZ TIC 5 N FAMILY JENNIFER MANIPULAT CHIROPRAC [place] T SPINAL 3-4 REGIONS RADEX HIP 70099 AKASH CARLOS 5 MEDICAL FRA UNILATERA SERV L FOUNDATIO COMPLETE N MINIMUM 2 VIEWS RADIOLOGI 66612 [place] CARLOS C 5 MEDICAL FRA EXAMINATI SERV ON PELVIS FOUNDATIO 1/2 N VIEWS CHIROPRAC 88065 PSYCHIATRIC TIC 5 N FAMILY JENNIFER MANIPULAT CHIROPRAC [place] T SPINAL 3-4 REGIONS MRI BRAIN 07552 [facility] BRAIN 5 Y Y STEM W/O [facility] W/CONTRAS T MATERIAL INJECTION A9585 [facility] 5 Y Y [facility] L 0.1 ML SERVICE G0151 [facility] HOME [...] AGENCY AGENCY HH/HOSPIC E EA 15 MIN LEVEL III 83559 [facility] BRYAN SURG 5 Y OF ANTOINE PATHOLOGY [facility] GROSS&YELITZA ROSCOPIC EXAM DECALCIFI 01302 [facility] CATION 5 Y OF ANTOINE PROCEDURE [facility] RADIOLOGI 90795 [place] RAYO C 5 MEDICAL STEVO EXAMINATI SERV ON PELVIS FOUNDATIO 1/2 N VIEWS RADEX HIP 56822 [place] RAYO 5 MEDICAL STEVO UNILATERA SERV L FOUNDATIO COMPLETE N MINIMUM 2 VIEWS ARTHRP 09460 [place] [place] ACETBLR/P 5 MEDICAL LETHA FEM SERV PROSTC FOUNDATIO AGRFT/ALG N RFT ANESTHESI 18409 COMMONWEReina JUNIOR SULAIMAN A OPEN 5 LTH TOTAL HIP ANESTHESI A PSC ARTHROPLA STY CHIROPRAC 46861 JUSTIN PAEZ TIC 5 N FAMILY JENNIFER MANIPULAT CHIROPRAC [place] T SPINAL 3-4 REGIONS COMPRE 40636 AKASH LANDIN AUDIOMETR 5 MEDICAL CHAD Y SERV THRESHOLD FOUNDATIO EVAL SP N RECOGNIJ TYMPANOME 77807 [place] LANDIN TRY 5 MEDICAL CHAD SERV FOUNDATIO N CUL BACT 59549 [facility] AEROBIC 5 Y Y ADDL [facility] METHS DEFINITIV E EA ISOL CULTURE 04268 [facility] BACTERIAL [address] [facility] QUANTTATI VE COLONY COUNT URINE BASIC 77125 [facility] METABOLIC 5 Y Y PANEL [facility] CALCIUM TOTAL URNLS DIP 75792 [facility] 5 Y Y STICK/TAB [facility] LET REAGENT AUTO MICROSCOP Y COLLECTIO 37890 [facility] N VENOUS 5 Y Y BLOOD [facility] VENIPUNCT URE SUSCEPTIB 34967 [facility] LTY STDY [facility]CRO/AGA R DILUTJ CHIROPRAC 82998 JUSTIN PAEZ TIC 5 N FAMILY JENNIFER MANIPULAT CHIROPRAC [place] T SPINAL 3-4 REGIONS CHIROPRAC 11260 JUSTIN PAEZ TIC 5 N FAMILY JENNIFER MANIPULAT CHIROPRAC [place] T SPINAL 3-4 REGIONS CHIROPRAC 16556 JUSTIN PAEZ TIC 5 N FAMILY JENNIFER MANIPULAT CHIROPRAC [place] T SPINAL 3-4 REGIONS CHIROPRAC 99423 JUSTIN PAEZ TIC 5 N FAMILY JENNIFER MANIPULAT CHIROPRAC [place] T SPINAL 3-4 REGIONS CATH 02272 [facility] PLACEMENT 5 Y Y & NJX [facility] CORONARY ART ANGIO IMG S&I BLOOD 63994 [facility] COUNT 5 Y Y COMPLETE HOSPITAL HOSPITAL AUTOMATED BASIC 13571 [facility] METABOLIC [address] [facility] HOSPITAL CALCIUM TOTAL LOCM Q9967 [facility] [phone] 5 Y Y MG/ML HOSPITAL HOSPITAL IODINE CONCENTRA TION PER ML INJECTION J1644 [facility] HEPARIN [address] [facility] HOSPITAL PER 1000 UNITS GUIDE C1769 [facility] WIRE 5 Y Y HOSPITAL HOSPITAL INJECTION J3010 [facility] FENTANYL 5 Y Y CITRATE [facility] 0.1 MG CATHETER C1887 [facility] GUIDING [address] [facility] HOSPITAL INTRDUCR/ C1894 [facility] SHEATH 5 Y Y NOT GUID [facility] INTRACARD EP NON-LASR INJECTION J2250 [facility] [address] [facility] HOSPITAL HCL PER 1 MG THERAPEUT 50600 JUSTIN REYNA IC PX 1/> 5 N FAMILY ANDREW AREAS CHIROPRAC EACH 15 T MIN EXERCISES APPL 18594 JUSTIN REYNA MODALITY 5 N FAMILY ANDREW 1/> AREAS CHIROPRAC TRACTION T MECHANICA L CHIROPRAC 21676 JUSTIN REYNA TIC 5 N FAMILY ANDREW MANIPULAT CHIROPRAC [place] T SPINAL 3-4 REGIONS CV STRS 08329 [facility] TST 5 Y Y XERS&/OR HOSPITAL HOSPITAL RX CONT ECG TRCG ONLY ECHO 64912 AKASH ENAMORADO JEN TTHRC R-T 5 MEDICAL 2D W/WO SERV M-MODE FOUNDATIO REST&STRS N CONT ECG THERAPEUT 85493 JUSTIN PAEZ IC PX 1/> 5 N FAMILY JENNIFER AREAS CHIROPRAC EACH 15 T MIN EXERCISES APPL 79543 JUSTIN PAEZ MODALITY 5 N FAMILY JENNIFER 1/> AREAS CHIROPRAC ELEC T STIMJ UNATTENDE D CHIROPRAC 93106 JUSTIN PAEZ TIC 5 N FAMILY JENNIFER MANIPULAT CHIROPRAC [place] T SPINAL 3-4 REGIONS APPL 52096 GIORGIOMarivel PAEZ MODALITY 5 N FAMILY JENNIFER 1/> AREAS CHIROPRAC TRACTION T MECHANICA L APPL 68095 GIORGIOMarivel PAEZ MODALITY 5 N FAMILY JENNIFER 1/> AREAS CHIROPRAC TRACTION T MECHANICA L CHIROPRAC 83247 JUSTIN PAEZ TIC 5 N FAMILY JENNIFER MANIPULAT CHIROPRAC [place] T SPINAL 3-4 REGIONS THERAPEUT 17003 GIORGIOMarivel PAEZ IC PX 1/> 5 N FAMILY JENNIFER AREAS CHIROPRAC EACH 15 T MIN EXERCISES CHIROPRAC 63944 JUSTIN PAEZ TIC 5 N FAMILY JENNIFER MANIPULAT CHIROPRAC [place] T SPINAL 3-4 REGIONS RADEX HIP 56654 [place] RANJEET JAM 5 MEDICAL UNILATERA SERV L FOUNDATIO COMPLETE N MINIMUM 2 VIEWS BASIC 68368 [facility] 5 Y Y [facility] CALCIUM TOTAL RADEX HIP 49371 [facility] [place] SCALF CHAD 5 RADIOLOGY UNILATERA L COMPLETE MINIM[place] 2 [place] [address] [facility] MAGNESIUM 4 N N [facility] HOSPITA HOSPITA ECG 45246 [facility] ROUTINE 4 N N ECG [facility] W/LEAST HOSPITA HOSPITA 12 LDS TRCG ONLY W/O I&R COMPREHEN 62909 [facility] SIVE 4 N N METABOLIC [facility] PANEL HOSPITA HOSPITA ECG 56916 PUND CHR PUND CHR ROUTINE 4 ECG W/LEAST 12 LDS I&[place] [address] [facility] TROPONIN 4 N N QUANTITAT [facility] [place] HOSPITA HOSPITA BLOOD 69085 [facility] COUNT 4 N N COMPLETE [facility] AUTO&AUTO HOSPITA HOSPITA DIFRNTL WBC COLLECTIO 90812 [facility] N VENOUS 4 N N BLOOD [facility] VENIPUNCT HOSPITA HOSPITA URE RADIOLOGI 42388 [facility] [place] MARY C 4 RADIOLOGY RHO EXAMINATI ON CHEST SINGLE VIEW FRONTAL DIAGNOSTI G0206 [place] DELL CAR C 4 MEDICAL MAMMOGRAP SERV HY INCL FOUNDATIO CAD WHEN N PERF; UNI COMPUTER- 36113 [facility] AIDED 4 Y Y DETECTION [facility] DX MAMMOGRAP HY RADIOLOGI 63937 [place] TRUE GEOFF C 4 MEDICAL EXAMINATI SERV ON CHEST FOUNDATIO SINGLE N VIEW FRONTAL ECG 93186 [place] SIGALA ROUTINE 4 MEDICAL NAN ECG SERV W/LEAST FOUNDATIO 12 LDS N I&R ONLY AMB A0427 [facility] 4 AAMIR RUTLEDGE ALS CO EMS CO EMS EMERGENCY TRANSPORT LEVEL 1 GROUND A0425 [facility] 4 AAMIR RUTLEDGE PER CO EMS CO EMS STATUTE MILE MRI BRAIN 20833 [facility] BRAIN 4 Y Y STEM W/O [facility] W/CONTRAS T MATERIAL INJECTION A9585 [facility] 4 Y Y GADOBUTRO [facility] L 0.1 ML ELECTROEN 15165 [place] KARO JEN CEPHALOGR 4 MEDICAL AM EXTND SERV MNTR >1 FOUNDATIO HR N ELECTROEN 70414 [facility] CEPHALOGR 4 Y Y AM W/REC [facility] AWAKE&ASL EEP CREATININ 65944 [facility] E BLOOD 4 Y Y [facility] CHIROPRAC 66812 [facility] JEANNINE TIC 4 N FAMILY JENNIFER MANIPULAT CHIROPRAC [place] T SPINAL 3-4 REGIONS COMPUTER- 67157 [place] ROSA CHAD AIDED 4 MEDICAL DETECTION SERV FOUNDATIO SCREENING N MAMMOGRAP HY SCREENING G0202 [place] ROSA CHAD 4 MEDICAL MAMMOGRAP SERV HY CAROLYN FOUNDATIO INCL CAD N WHEN PERFORMD GROUND A0425 [facility] 4 AAMIR RUTLEDGE PER CO EMS CO EMS STATUTE MILE AMBULANCE A0429 [facility] 4 AAMIR RUTLEDGE BLS CO EMS CO EMS EMERGENCY TRANSPORT CHIROPRAC 93096 [facility] JEANNINE TIC 4 N FAMILY JENNIFER MANIPULAT CHIROPRAC [place] T SPINAL 3-4 REGIONS ANES 91002 [place] DORITY INTRAPERI 4 MEDICAL KRISTINA TONEAL SERV UPPER FOUNDATIO ABDOMEN W/LAPS NOS LAPAROSCO 66587 [place] LEELA PY SURG 4 MEDICAL DEANNA CHOLECYST SERV ECTOMY FOUNDATIO N LEVEL III 08877 [facility] CASTELAN SURG 4 Y OF DANY PATHOLOGY [facility] GROSS&YELITZA ROSCOPIC EXAM CHIROPRAC 14793 [facility] GIORGIOMarivel TIC 4 N FAMILY N FAMILY MANIPULAT CHIROPRAC CHIROPRAC [place] T T SPINAL 3-4 REGIONS APPL 05318 [facility] JEANNINE MODALITY 4 N FAMILY JENNIFER 1/> AREAS CHIROPRAC ELEC T STIMJ UNATTENDE D APPL 99551 [facility] JEANNINE MODALITY 4 N FAMILY JENNIFER 1/> AREAS CHIROPRAC TRACTION T MECHANICA L THERAPEUT 85579 [facility] JEANNINE IC PX 1/> 4 N FAMILY JENNIFER AREAS CHIROPRAC EACH 15 T MIN EXERCISES RADEX HIP 10575 [facility] 4 [facility] COMPLETE MINIMUM 2 VIEWS RADIOLOGI 05632 [facility] 4 Y Y [facility] ON PELVIS 1/2 VIEWS RADIOLOGI 06558 [facility] EXAM 4 Y Y CHEST 2 [facility] VIEWS FRONTAL&L ATERAL CHIROPRAC 60009 [facility] JEANNINE TIC 4 N FAMILY JENNIFER MANIPULAT CHIROPRAC [place] T SPINAL 3-[address] [place] [address] [place] NICKELS ABDOMEN & 4 MEDICAL NIKKIE PELVIS SERV W/CONTRAS FOUNDATIO T MATERIAL ECG 38769 [place] SIGALA ROUTINE 4 MEDICAL NAN ECG SERV W/LEAST FOUNDATIO 12 LDS [place] [address] [facility] EXTREMITY 4 Y Y [facility] REAL-TIME IMG LMTD LOCM Q9967 [facility] 300-399 4 Y Y MG/ML HOSPITAL HOSPITAL IODINE CONCENTRA TION PER ML CHIROPRAC 62276 [facility] EXPRESSMarivel PAEZ TIC 4 N FAMILY JENNIFER MANIPULAT CHIROPRAC [place] T SPINAL 3-4 REGIONS APPL 46278 [facility] JEANNINE MODALITY 4 N FAMILY JENNIFER 1/> AREAS CHIROPRAC ELEC T STIMJ UNATTENDE D APPL 09733 JUSTIN JEANNINE MODALITY 4 N FAMILY JENNIFER 1/> AREAS CHIROPRAC TRACTION T MECHANICA L THERAPEUT 47083 JUSTIN PAEZ IC PX 1/> 4 N FAMILY JENNIFER AREAS CHIROPRAC EACH 15 T MIN EXERCISES THERAPEUT 86301 JUSTIN PAEZ IC PX 1/> 4 N FAMILY JENNIFER AREAS CHIROPRAC EACH 15 T MIN EXERCISES APPL 15745 JUSTIN JEANNINE MODALITY 4 N FAMILY JENNIFER 1/> AREAS CHIROPRAC TRACTION T MECHANICA L APPL 90375 JUSTIN JEANNINE MODALITY 4 N FAMILY JENNIFER 1/> AREAS CHIROPRAC ELEC T STIMJ UNATTENDE D CHIROPRAC 13561 JUSTIN PAEZ TIC 4 N FAMILY JENNIFER MANIPULAT CHIROPRAC [place] T SPINAL 3-4 REGIONS APPL 45245 JUSTIN JEANNINE MODALITY 4 N FAMILY JENNIFER 1/> AREAS CHIROPRAC T ULTRASOUN D EA 15 MIN CHIROPRAC 16585 JUSTIN PAEZ TIC 4 N FAMILY JENNIFER MANIPULAT CHIROPRAC [place] T SPINAL 3-4 REGIONS APPL 14112 JUSTIN JEANNINE MODALITY 4 N FAMILY JENNIFER 1/> AREAS CHIROPRAC ELEC T STIMJ UNATTENDE D APPL 33330 JUSTIN JEANNINE MODALITY 4 N FAMILY JENNIFER 1/> AREAS CHIROPRAC TRACTION T MECHANICA L THERAPEUT 47859 JUSTIN PAEZ IC PX 1/> 4 N FAMILY JENNIFER AREAS CHIROPRAC EACH 15 T MIN EXERCISES AMBULANCE A0429 [facility] SERVICE 4 AAMIR CRS CO EMS CO EMS EMERGENCY TRANSPORT GROUND A0425 [facility] MILEA 4 AAMIR RUTLEDGE PER CO EMS CO EMS STATUTE MILE THERAPEUT 48246 JUSTIN PAEZ IC PX 1/> 4 N FAMILY JENNIFER AREAS CHIROPRAC EACH 15 T MIN EXERCISES CHIROPRAC 32158 JUSTIN PAEZ TIC 4 N FAMILY JENNIFER MANIPULAT CHIROPRAC [place] T SPINAL 3-4 REGIONS APPL 88349 [place] JEANNINE MODALITY 4 N FAMILY JENNIFER 1/> AREAS CHIROPRAC TRACTION T MECHANICA L APPL 07867 [place] JEANNINE MODALITY 4 N FAMILY JENNIFER 1/> AREAS CHIROPRAC ELEC T STIMJ UNATTENDE D APPL 51674 [place] JEANNINE MODALITY 4 N FAMILY JENNIFER 1/> AREAS CHIROPRAC ELEC T STIMJ UNATTENDE D CHIROPRAC 56939 JUSTIN JEANNINE TIC 4 N FAMILY JENNIFER MANIPULAT CHIROPRAC [place] T SPINAL 3-4 REGIONS APPL 97279 [place] JEANNINE MODALITY 4 N FAMILY JENNIFER 1/> AREAS CHIROPRAC TRACTION T MECHANICA L THERAPEUT 28177 JUSTIN PAEZ IC PX 1/> 4 N FAMILY JENNIFER AREAS CHIROPRAC EACH 15 T MIN EXERCISES THERAPEUT 71253 JUSTIN PAEZ IC PX 1/> 4 N FAMILY JENNIFER AREAS CHIROPRAC EACH 15 T MIN EXERCISES CHIROPRAC 25426 JUSTIN PAEZ TIC 4 N FAMILY JENNIFER MANIPULAT CHIROPRAC [place] T SPINAL 3-4 REGIONS APPL 60175 JUSTIN JEANNINE MODALITY 4 N FAMILY JENNIFER 1/> AREAS CHIROPRAC TRACTION T MECHANICA L APPL 49425 GIORGIOTOMarivel JEANNINE MODALITY 4 N FAMILY JENNIFER 1/> AREAS CHIROPRAC ELEC T STIMJ UNATTENDE D APPL 46640 JUSTIN JEANNINE MODALITY 4 N FAMILY JENNIFER 1/> AREAS CHIROPRAC ELEC T STIMJ UNATTENDE D APPL 37331 JUSTIN JEANNINE MODALITY 4 N FAMILY JENNIFER 1/> AREAS CHIROPRAC TRACTION T MECHANICA L CHIROPRAC 47142 JUSTIN PAEZ TIC 4 N FAMILY JENNIFER MANIPULAT CHIROPRAC [place] T SPINAL 3-4 REGIONS RADEX HIP 69526 [facility] 4 Y Y [facility] L COMPLETE MINIMUM 2 VIEWS THERAPEUT 68948 JUSTIN PAEZ IC PX 1/> 4 N FAMILY JENNIFER AREAS CHIROPRAC EACH 15 T MIN EXERCISES CHIROPRAC 22497 JUSTIN FERRARA KRISTINA TIC 4 N FAMILY MANIPULAT CHIROPRAC [place] T SPINAL 3-4 REGIONS CHIROPRAC 45671 GIORGIOMarivel FERRARA KRISTINA TIC 4 N FAMILY MANIPULAT CHIROPRAC [place] T SPINAL 3-4 REGIONS THERAPEUT 65366 GIORGIOMarivel FERRARA KRISTINA IC PX 1/> 4 N FAMILY AREAS CHIROPRAC EACH 15 T MIN EXERCISES APPL 18964 GIORGIOMarivel FERRARA KRISTINA MODALITY 4 N FAMILY 1/> AREAS CHIROPRAC TRACTION T MECHANICA L APPL 00978 GIORGIOMarivel FERRARA KRISTINA MODALITY 4 N FAMILY 1/> AREAS CHIROPRAC ELEC T STIMJ UNATTENDE D APPL 17085 JUSTIN JEANNINE MODALITY 4 N FAMILY JENNIFER 1/> AREAS CHIROPRAC ELEC T STIMJ UNATTENDE D THERAPEUT 02523 JUSTIN PAEZ IC PX 1/> 4 N FAMILY JENNIFER AREAS CHIROPRAC EACH 15 T MIN EXERCISES APPL 18864 GIORGIOGLADISMraivel PAEZ MODALITY 4 N FAMILY JENNIFER 1/> AREAS CHIROPRAC TRACTION T MECHANICA L CHIROPRAC 49751 GIORGIOGLADISMarivel PAEZ TIC 4 N FAMILY JENNIFER MANIPULAT CHIROPRAC [place]VA TX T SPINAL 3-4 REGIONS CHIROPRAC 55531 GIORGIOGLADISMarivel PAEZ TIC 4 N FAMILY JENNIFER MANIPULAT CHIROPRAC [place] TX T SPINAL 3-4 REGIONS APPL 23841 GIORGIOGLADISMarivel PAEZ MODALITY 4 N FAMILY JENNIFER 1/> AREAS CHIROPRAC TRACTION T MECHANICA L THERAPEUT 08714 JUSTIN PAEZ IC PX 1/> 4 N FAMILY JENNIFER AREAS CHIROPRAC EACH 15 T MIN EXERCISES CHIROPRAC 91505 GIORGIOGLADISMarivel PAEZ TIC 4 N FAMILY JENNIFER MANIPULAT CHIROPRAC [place] T SPINAL 3-4 REGIONS APPL 48304 GIORGIOGLADISMarivel PAEZ MODALITY 4 N FAMILY JENNIFER 1/> AREAS CHIROPRAC ELEC T STIMJ UNATTENDE D CHIROPRAC 55207 GIORGIOZUNILDA JEANNINE TIC 4 N FAMILY JENNIFER MANIPULAT CHIROPRAC [place] T SPINAL 3-4 REGIONS CHIROPRAC 78727 [facility] JUSTIN TIC 4 N FAMILY N FAMILY MANIPULAT CHIROPRAC CHIROPRAC [place] T T SPINAL 3-4 REGIONS CHIROPRAC 08504 GIORGIOMarivel PAEZ TIC 4 N FAMILY JENNIFER MANIPULAT CHIROPRAC [place] T SPINAL 3-4 REGIONS CHIROPRAC 44375 [facility] JEANNINE TIC 4 N FAMILY JENNIFER MANIPULAT CHIROPRAC [place] T SPINAL 3-4 REGIONS CHIROPRAC 40458 [facility] JEANNINE TIC 4 N FAMILY JENNIFER MANIPULAT CHIROPRAC [place] T SPINAL 3-4 REGIONS CHIROPRAC 84404 [facility] GIORGIOMarivel TIC 4 N FAMILY N FAMILY MANIPULAT CHIROPRAC CHIROPRAC [place] T T SPINAL 3-4 REGIONS CHIROPRAC 06179 [facility] JEANNINE TIC 4 N FAMILY JENNIFER MANIPULAT CHIROPRAC [place] T SPINAL 3-4 REGIONS CHIROPRAC 78598 GIORGIOMarivel PAEZ TIC 4 N FAMILY JENNIFER MANIPULAT CHIROPRAC [place] T SPINAL 3-4 REGIONS CHIROPRAC 85870 GIORGIOMarivel PAEZ TIC 4 N FAMILY JENNIFER MANIPULAT CHIROPRAC [place] T SPINAL 3-4 REGIONS CHIROPRAC 83252 [facility] JEANNINE TIC 4 N FAMILY JENNIFER MANIPULAT CHIROPRAC [place] T SPINAL 3-4 REGIONS RADEX 51315 [facility] JEANNINE SPINE 4 N FAMILY JENNIFER CERVICAL CHIROPRAC 2 OR 3 T VIEWS RADEX 50598 [facility] JEANNINE SPINE 4 N FAMILY JENNIFER LUMBOSACR CHIROPRAC AL 2/3 T VIEWS RADIOLOGI 52881 [facility] ANDREWS C 4 RADIOLOGY III JAM EXAMINATI ASSOC ON PELVIS 1/2 VIEWS RADIOLOGI 15815 [facility] CEJA C 4 RADIOLOGY ANITA EXAMINATI ASSOC ON CHEST SINGLE VIEW FRONTAL RADEX HIP 06455 [facility] ANDREWS 4 RADIOLOGY III JAM UNILATERA ASSOC L COMPLETE MINIMUM [address] THORAX 40767 [place] SANCHEZ JEN W/O 4 MEDICAL CONTRAST SERV MATERIAL FOUNDATIO N CATARACT 70090 [facility] 4 Y Y INSERTION [facility] ANESTHESI 28018 AKASH ROZINA A EYE 4 MEDICAL [place] SURGERY IAADIADOO 68456 [facility] RABIEE 4 N URGENT [place] [address] [place] AYOOB AND ABDOMEN & 4 MEDICAL PELVIS SERV W/O FOUNDATIO CONTRAST N MATERIAL ECG 44519 AKASH KACI CHI ROUTINE 4 MEDICAL ECG SERV W/LEAST FOUNDATIO 12 LDS N I&R ONLY ARTHROCEN 27624 [facility] 4 Y Y ASPIR&/IN HOSPITAL HOSPITAL J MAJOR JT/BURSA W/O US INJECTION J3301 [place] [address] Y Y [facility] NOS 10 MG OPH BMTRY 50961 [facility] 4 MEDICAL SEE ECHOGRAPY SERV A-SCAN FOUNDATIO IO LENS PWR IBIS OPHTH 09019 [facility]ASH [facility] 4 MEDICAL SEE XM&EVAL SERV COMPRHNSV FOUNDATIO ESTAB PT 1/> COMPUTERI 67718 AKASH [facility] ZED 4 MEDICAL SEE OPHTHALMI SERV C IMAGING FOUNDATIO OPTIC NERVE RADEX HIP 25326 AKASH PARVEEN 4 MEDICAL KRISTINA UNILATERA SERV L FOUNDATIO COMPLETE N MINIMUM 2 VIEWS ECG 73404 AKASH VALADEZO ROUTINE 4 MEDICAL ECG SERV W/LEAST FOUNDATIO 12 LDS N I&R ONLY RADIOLOGI 87914 AKASH PARVEEN C 4 MEDICAL KRISTINA EXAMINATI SERV ON CHEST FOUNDATIO SINGLE VIEW FRONTAL Encounters Encounter Start End Date Code Location Performer Type Date OFFICE 29582 [facility] SURINDER INTERIANO 7 7 PHYSICIAN T [facility] 20 S GROUP [facility] Herrera 7 [facility] OUTPATIEN INC T EMERGENCY 88695 ROMEO 7 7 [facility] DEPARTMEN INC T VISIT LOW/MODER SEVERITY EMERGENCY 56112 PHIL BERGER 7 7 PHYSICIAN JR DEPARTMEN S, PLLC T VISIT HIGH/URGE NT SEVERITY [facility]OSPITAL [facility] - 7 7 [facility] 04230 PHIL CARLOSEY DEPT 7 7 PHYSICIAN VISIT S, PLLC HIGH SEVERITY& THREAT FUN [facility]OSPITAL [facility] 51339 UNIVERSIT 6 6 Y [facility] T VISIT MODERATE SEVERITY HOSPITAL [facility] - [facility] 08985 [place] [facility] MEDICAL T VISIT SERV 25 FOUNDATIO MINUTES N HOSPITAL [facility] - 6 6 N OUTPATIEN COMMUNTIY T HOSPITA EMERGENCY 97290 CELL[facility]I CELLAROSI 6 6 - [facility] PAT PAT T VISIT MODERATE SEVERITY EMERGENCY 82378 [facility] 6 6 N [facility] COMMUNTIY T VISIT HOSPITA LIMITED/M INOR [facility] H[facility] - 6 6 N OUTPATIEN COMMUNTIY T HOSPITA EMERGENCY 84845 [facility] 6 6 N [facility] COMMUNTIY T VISIT HOSPITA MODERATE SEVERITY OFFICE 58826 [facility] 6 6 [place] T VISIT PHYSICIAN 15 S ASSIST MINUTES HOSPITAL [facility] - 6 6 N OUTPATIEN COMMUNTIY T HOSPITA [facility] 6 6 [facility] 79906 [facility] Y T VISIT 5 HOSPITAL MINUTES EMERGENCY 63763 [facility] 6 6 N [facility] COMMUNTIY T VISIT HOSPITA MODERATE SEVERITY HOSPITAL [facility] - 6 6 N OUTPATIEN COMMUNTIY T HOSPITA EMERGENCY 50461 [facility] O' REEL 6 6 MONI DEANNA DEPARTMEN EMERGENCY T VISIT SERVI MODERATE SEVERITY HOSPITAL [facility] - 6 6 N OUTPATIEN COMMUNTIY T HOSPITA HOSPITAL [facility] - 6 6 N OUTPATIEN COMMUNTIY T HOSPITA EMERGENCY 62601 MICHAEL RODRIGUEZ 6 6 STEVO STEVO DEPARTMEN T VISIT HIGH/URGE NT SEVERITY EMERGENCY 19477 [facility] 6 6 N DEPARTMEN COMMUNTIY T VISIT HOSPITA MODERATE SEVERITY [facility]OSPITAL [facility] 61617 UNIV[facility] 6 6 Y [facility] T VISIT MODERATE SEVERITY EMERGENCY 20773 AKASH ROLLINSVER 6 6 MEDICAL KARLI DEPARTMEN SERV T VISIT FOUNDATIO HIGH/URGE N NT SEVERITY [facility]OSPITAL [facility] 18143 AKASH KUMARI 6 6 MEDICAL MAT DEPARTMEN SERV T VISIT FOUNDATIO MODERATE N SEVERITY EMERGENCY 40399 UN[facility]ERSIT 6 6 Y [facility] T VISIT HIGH/URGE NT SEVERITY OFFICE 61582 [facility] 6 6 [place] FAMILY I DAYAN T VISIT MEDICINE 25 P [facility]ERS[facility] 87770 [facility] 6 MEDICAL T VISIT SERV 15 FOUNDATIO MINUTES N OFFICE 98679 [facility] 6 6 Y T VISIT 5 [facility] - 6 6 N OUTPATIEN COMMUNTIY T HOSPITA EMERGENCY 43914 [facility] 6 6 [facility] COMMUNTI[facility] T VISIT HOSPITA HIGH/URGE NT SEVERITY EMERGENCY 52284 [facility] 6 6 N DEPARTMEN COMMUNTIY T VISIT HOSPITA MODERATE SEVERITY EMERGENCY 58597 MECCARIEL MECCARIEL 6 6 LO TRA LO TRA DEPARTMEN T VISIT HIGH/URGE NT SEVERITY HOSPITAL [facility] - 6 6 N OUTPATIEN COMMUNTIY T HOSPITA [facility] - 6 6 N OUTPATIEN COMMUNTIY T HOSPITA EMERGENCY 48208 MICHAEL RODRIGUEZ 6 6 STEVO STEVO DEPARTMEN T VISIT MODERATE SEVERITY EMERGENCY 08261 [facility] 6 6 N DEPARTMEN COMMUNTIY T VISIT HOSPITA HIGH/URGE NT SEVERITY HOSPITAL [facility] - 6 6 N OUTPATIEN COMMUNTIY T HOSPITA EMERGENCY 05728 [facility] [facility] 6 6 N DEPARTMEN COMMUNTIY T VISIT HOSPITA MODERATE SEVERITY HOSPITAL [facility] 6 6 N OUTPATIEN COMMUNTIY T HOSPFORMERLY [facility], [facility] 6 6 N OUTPATIEN COMMUNTIY T HOSPITA EMERGENCY 12832 [facility] 6 [facility] VISIT HOSPITA MODERATE SEVERITY EMERGENCY 98107 [facility] 6 6 MONI [facility] EMERGENCY T VISIT SERV HIGH/URGE NT SEVERITY EMERGENCY 10460 UN[facility]ERSIT 6 6 Y [facility] T VISIT HIGH/URGE NT SEVERITY EMERGENCY 83249 AKASH LUKEMOREIRA 6 6 MEDICAL YELITZA [facility] SERV T VISIT FOUNDATIO MODERATE N SEVERITY HOSPITAL [facility] - 6 6 [facility] 92502 T[facility] B[facility] SOB OUTPATI [address], [facility] 5 5 Y [facility] T EMERGENCY 94581 UNIVERSIT 5 5 Y [facility] T VISIT HIGH/URGE NT SEVERITY EMERGENCY 70842 [facility]AL 5 5 BAHAI [facility] HOSP T VISIT MODERATE SEVERITY EMERGENCY 53686 CENTRAL WHITE 5 5 EMERGENCY [facility] T VISIT HIGH/URGE NT SEVERITY HOSPITAL CENTRAL - 5 5 BAHAI [facility] 87152 [facility] 5 5 [place] FAMILY RANJEET T VISIT MEDICINE 25 P MINUTES HOSPITAL [facility] - 5 5 Y [facility] T EMERGENC[facility] 75545 [facility] 5 5 Y [facility] T VISIT HIGH/URGE NT SEVERITY OFFICE 54412 [facility] 5 5 [place] CAT T VISIT MEDICINE 15 P MINUTES HOSPITAL [facility] 5 5 Y [facility] T EMERGENCY 05022 [facility] 5 5 Y [facility] T VISIT MODERATE SEVERITY HOSPITAL [facility] - 5 5 Y [facility] T EMERGENCY 11592 UN[facility]ERSIT 5 5 Y [facility] T VISIT HIGH/URGE NT SEVERITY EMERGENCY 02388 UNIVERSIT DEPT 5 5 Y VISIT HOSPITAL HIGH SEVERITY& THREAT [facility]ERSIT - 5 5 Y [facility] OFF[facility] 23299 [facility] CONS[facility] 5 5 N MICHAEL GUERRERO CARDIOLOG NEW/ESTAB Y PATIENT 60 MIN EMERGENCY 79992 [facility] DEPT 5 5 BRO BRO VISIT HIGH SEVERITY& THREAT [facility]ERSIT - 5 5 Y [facility] T EMERGENCY 73345 UNIVERSIT 5 5 Y [facility] T VISIT HIGH/URGE NT SEVERITY EMERGENCY 98592 [place] YOUNG JR 5 5 MEDICAL JEANETTE DEPARTMEN SERV T VISIT FOUNDATIO MODERATE N SEVERITY OFFICE 38594 PSYCHIATRIC OUTPATIEN 5 5 N FAMILY JENNIFER T VISIT CHIROPRAC 10 T MINUTES EMERGENCY 90021 UNIVERSIT 5 5 Y [facility] T VISIT MODERATE SEVERITY HOSPITAL [facility] - 5 5 [facility] 96245 [facility] 5 5 N URGENT ABD T VISIT CARE 15 [facility]ERSIT [facility] 5 5 Y [facility] 64431 [facility] 5 5 Y T VISIT 5 HOSPITAL MINUTES OFFICE 09669 [facility] 5 MEDICAL MAR T VISIT SERV 15 FOUNDATIO MINUTES N OFFICE 20580 [facility] 5 MEDICAL CHAD T VISIT SERV 10 FOUNDATIO MINUTES N OFFICE 83634 AKASH [facility]ZA [facility] 5 5 MEDICAL WAL T VISIT SERV 10 FOUNDATIO MINUTES N OFFICE 84020 [facility] 5 5 [place] FAM[place] ELL T VISIT MEDICINE 15 P MINUTES EMERGENCY 21911 UNIVERSIT 5 5 Y [facility] T VISIT MODERATE SEVERITY HOSPITAL UN[facility]ERSIT - 5 5 Y [facility] T EMERGENCY 18425 AKASH ROCKY 5 5 MEDICAL IRIS DEPARTMEN SERV T VISIT FOUNDATIO HIGH/URGE N NT SEVERITY OFFICE 60460 [facility] 5 MEDICAL WAL T VISIT SERV 15 FOUNDATIO MINUTES N OFFICE 72944 [facility] 5 5 MEDICAL CHAD T VISIT SERV 15 FOUNDATIO MINUTES N HOSPITAL [facility]ERSIT - 5 5 Y [facility] T HOME [facility], 5 5 HOME INPATIENT HEALTH AGENCY OFFICE 35333 [place] LUIS OUTPATIEN 5 5 MEDICAL SEE T VISIT SERV 15 FOUNDATIO MINUTES N HOME [facility], 5 5 HOME INPATIENT HEALTH AGENCY OFFICE 32853 [place] URVASHI OUTPATIEN 5 5 MEDICAL CHAD T NEW 20 SERV MINUTES FOUNDATIO N OFFICE 73287 UNIV STEVE HUERTA OUTPATIEN 5 5 [place] T VISIT MEDICINE 15 P MINUTES HOSPITAL [facility] - 5 5 Y [facility] 29369 [facility] CALLI OSBORN 5 5 MONI III JEANETTE GUERRERO PHYSICIAN NEW/ESTAB SERVI PATIENT 60 MIN HOSPITAL UNIVERSIT - [address] [facility] - 5 5 [facility] OFF[facility] 61447 PSYCHIATRIC OUTPATI 5 5 N FAMILY JENNIFER T VISIT CHIROPRAC 10 T MINUTES OFFICE 22071 UNIV ARI OUTPATIEN 5 5 [place] JAYDEN T VISIT MEDICINE 15 P MINUTES HOSPITAL [facility] - 5 5 Y [facility] T EMERGENCY 57459 [facility] 5 [facility] VISIT HIGH/URGE NT SEVERITY EMERGENCY 10209 [place] BAKER 5 5 MEDICAL JIN DEPARTMEN SERV T VISIT FOUNDATIO MODERATE N SEVERITY OFFICE 67757 AKASH HOLMAN OUTPATIEN 5 5 MEDICAL T VISIT SERV 15 FOUNDATIO MINUTES N HOSPITAL [facility] 5 5 Y [facility] 19172 [facility] Y T VISIT HOSPITAL 40 MINUTES HOSPITAL [facility] - 5 5 [facility] OFF[facility] 18183 KMSF DIEGO [facility] 5 5 NURSE BREANNA T VISIT PRACTITIO 15 NER GR MINUTES OFFICE 92624 [facility] 5 5 Y T VISIT 5 [facility]PITAL [facility] - 5 5 [facility] 43583 AKASH HARTMANN [facility] 5 5 MEDICAL JEANETTE T VISIT SERV 15 FOUNDATIO MINUTES [facility] - 5 5 N OUTPATIEN [facility] T HOSPITA EMERGENCY 33113 MICHAEL SANDERSLEY 5 5 STEVO STEVO [facility] T VISIT MODERATE SEVERITY OFFICE [address] [facility] 4 4 [place] FAM[place] I DAYAN T VISIT MEDICINE 25 P MINUTES HOSPITAL [facility] 4 4 N [facility] T HOSPITA EMERGENCY 88345 P[facility]D CH[facility] PUND CHR DEPT 4 4 VISIT HIGH SEVERITY& THREAT FUNCJ EMERGENCY 70170 AKASH VEGASON 4 4 MEDICAL [facility] SERV T VISIT FOUNDATIO MODERATE N SEVERITY EMERGENCY 35826 UNIVERSIT 4 4 Y [facility] T VISIT LOW/MODER SEVERITY HOSPITAL UNIVERSIT - [address] [facility] - 4 4 [facility] OFFICE [address] [facility] 4 4 [place] FAM[place] ELL T VISIT MEDICINE 15 P MINUTES OFFICE 94277 [facility] EDINSONMARIA G [facility] 4 4 N URGENT ABD T VISIT CARE 15 MINUTES EMERGENCY 23537 UNIVERSIT 4 4 Y [facility] T VISIT HIGH/URGE NT SEVERITY HOSPITAL [facility] - 4 4 Y [facility] 35439 AKASH SMITH [facility] 4 4 MEDICAL SEE T VISIT SERV 15 FOUNDATIO MINUTES N HOSPITAL UNIVERSIT - 4 4 Y [facility] T OFFICE 93813 UNIVERSIT OUTPATIEN 4 4 Y T VISIT 5 [facility] UN[facility]ERS[facility] - 4 4 Y [facility] T OFFICE 75493 [place] HARTMANN OUTPATIEN 4 4 MEDICAL JEANETTE T VISIT SERV 40 FOUNDATIO MINUTES HOSPITAL [facility]ERSIT - 4 4 Y [facility] T EMERGENCY 61452 [place] SLOAS III 4 4 MEDICAL ALEX DEPARTMEN SERV T VISIT FOUNDATIO HIGH/URGE N NT SEVERITY [facility]OSPITAL [facility] 4 [facility] T EMERGENCY 21520 UN[facility]ERSIT 4 4 Y [facility] T VISIT MODERATE SEVERITY OFFICE 02769 [facility] CLI CLI T VISIT 15 MINUTES OFFICE 69399 [facility] 4 4 N FAMILY JENNIFER T VISIT CHIROPRAC 10 T MINUTES OFFICE 24101 [facility]DRIMOTI [facility] [place] ARC T VISIT MEDICINE 15 P MINUTES [facility]OSPITAL [facility] - 4 4 [facility] T OFFICE 16786 UNIVERSIT OUTPATIEN 4 4 Y T VISIT 5 HOSPITAL MINUTES OFFICE 16307 UNIV OF STEVE DEANNA OUTPATIEN 4 4 [place] T VISIT MEDICINE 15 P MINUTES OFFICE 34639 [place] AVTAR HOLMAN OUTPATIEN 4 4 MEDICAL T VISIT SERV 15 FOUNDATIO [facility]ERSIT - 4 4 [facility] OFF[facility] 84438 UN[facility] OUTPATIEN 4 4 Y T VISIT 5 [facility] - 4 4 Y [facility] OFF[facility] 46245 AKASH TROY HAS OUTPATIEN 4 4 MEDICAL T VISIT SERV 15 FOUNDATIO MINUTES N OFFICE 37337 AKASH SWENSON OUTPATIEN 4 4 MEDICAL DEANNA T VISIT SERV 25 FOUNDATIO MINUTES N OFFICE 91164 JUSTIN PAEZ OUTPATIEN 4 4 N FAMILY JENNIFER T VISIT CHIROPRAC 10 T MINUTES HOSPITAL [facility]ERSIT - 4 4 Y [facility] T EMERGENCY 64077 AKASH BLUNT PANCHO 4 4 MEDICAL DEPARTMEN SERV T VISIT FOUNDATIO HIGH/URGE N NT SEVERITY [facility]OSPITAL [facility] - 4 4 [facility] OFF[facility] 96850 [facility] ARANDA OUTPATIEN 4 4 [place] RANJEET T VISIT MEDICINE 15 P MINUTES OFFICE 93357 JUSTIN PAEZ OUTPATIEN 4 4 N FAMILY JENNIFER T VISIT CHIROPRAC 10 T MINUTES OFFICE 83669 BAHAI DANISH OUTPATIEN 4 4 NEUROLOGY CHRIS T NEW 45 CENTER MINUTES JONY OFFICE 60326 JUSTIN PAEZ OUTPATIEN 4 4 N FAMILY JENNIFER T NEW 30 CHIROPRAC MINUTES T HOSPITAL C[facility]TRAL - 4 4 [facility] OUTPATIEN HOSP T EMERGENCY 03318 [place] FRANCESCA MARCANO 4 4 EMERGENCY DEPARTMEN PHYS PSC T VISIT MODERATE SEVERITY EMERGENCY 57607 [place] 4 4 [facility]HAI DEPARTMEN HOSP T VISIT HIGH/URGE NT SEVERITY HOSPITAL CEN[facility]AL - 4 4 [facility] OUTPATI[facility]OSP T OFFICE 33689 [facility] ANDRIA OUTPATIEN 4 4 [place] FAM[place] I DAYAN T VISIT MEDICINE 15 P MINUTES OFFICE 40029 AKASH TROY HAS OUTPATIEN 4 4 MEDICAL T VISIT SERV 15 FOUNDATIO MINUTES HOSPITAL [facility] - 4 4 [facility] - 4 4 [facility] 29758 [facility]AS [facility] 4 4 N URGENT ABD T NEW 30 CARE MINUTES OFFICE 33405 AKASH CORCORAN JR [facility] 4 4 MEDICAL SULAIMAN T VISIT SERV 25 FOUNDATIO MINUTES HOSPITAL [facility] 4 4 [facility] T EMERGENCY 74517 UNIVERSIT 4 4 Y [facility] T VISIT HIGH/URGE NT SEVERITY [facility] - 4 4 [facility] OFF[facility] [address] [facility] 4 4 MEDICAL T VISIT SERV 15 FOUNDATIO MINUTES OFFICE 98143 [facility] 4 4 [place] DAYAN T VISIT MEDICINE 15 P MINUTES EMERGENCY 62761 AKASH BAKER 4 4 MEDICAL JIN DEPARTMEN SERV T VISIT FOUNDATIO HIGH/URGE N NT SEVERITY
--- OUTSIDE RECORDS SUMMARY | 2017-05-18 06:01 | External Medical Summary Rpt | CCD ---
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 MGMT COMMUNTIY COMMUNTIY TRAINING HOSPITA HOSPITA EACH 15 MINUTES ARTHROCEN 31060 [place] AVTAR SAMANO 6 MEDICAL ASPIR&/IN SERV J MAJOR FOUNDATIO JT/BURSA N W/O US INJECTION [id number] [address] LONE ACETONIDE NOS 10 MG NONEMERG A0120 [facility] OREILLY TRNSPRT: 6 GRASS ULTRA MINI-BUS COMMUNITY TRANSIT MTN ACTION SERV AREA/OTH SYS GROUND A0425 [facility] 6 Yolanda-LAUREEN RUTLEDGE PER CO EMS CO EMS STATUTE MILE AMBULANCE A0429 [facility] 6 Yolanda-LAUREEN CRS CO EMS CO EMS EMERGENCY TRANSPORT AMBULANCE A0429 [facility] SERVICE 6 Yolanda-LAUREEN CRS CO EMS CO EMS EMERGENCY TRANSPORT GROUND A0425 [facility] AAMIR RUTLEDGE PER CO EMS CO EMS STATUTE MILE RADEX HIP 87640 [facility] [place] RADMANESH 6 RADIOLOGY SHA UNILATERA L WITH PELVIS 2-3 VIEWS GROUND A0425 [facility] 6 AAMIR RUTLEDGE PER CO EMS CO EMS STATUTE MILE AMBULANCE A0429 [facility] SERVICE 6 Yolanda-LAUREEN RUTLEDGE BLS CO EMS CO EMS EMERGENCY TRANSPORT COLLECTIO 65732 [facility] N VENOUS 6 N N BLOOD COMMUNTIY COMMUNTIY [place]IP[place] [address] [facility] TROPONIN 6 N N QUANTITAT COMMUNTIY COMMUNTIY MARVA HOSPITA HOSPITA CUL BACT 63574 [facility] XCPT 6 N N URINE COMMUNTIY COMMUNTIY BLOOD/STO HOSPITA HOSPITA OL AEROBIC ISOL IAADIADOO 49049 [facility] 6 N N STREPTOCO COMMUNTIY COMMUNTIY CCUS HOSPITA HOSPITA GROUP A ECG 61253 [facility] ROUTINE 6 N N ECG COMMUNTIY COMMUNTIY W/LEAST HOSPITA HOSPITA 12 LDS TRCG ONLY W/O I&R ECG 64268 [facility] ROUTINE 6 Y Y ECG HOSPITAL HOSPITAL W/LEAST 12 LDS TRCG ONLY W/O I&R RADEX 00989 [facility] ANKLE 6 Y Y COMPLETE HOSPITAL HOSPITAL MINIMUM 3 VIEWS RADEX 21789 [facility] FOOT 6 Y Y COMPLETE HOSPITAL HOSPITAL [place] [place] [address] [facility] THORACIC 6 Y Y SPINE W/[place] [address] [facility] CERVICAL 6 Y Y SPINE W/O HOSPITAL HOSPITAL CONTRAST MATERIAL ECG 32924 [place] KACI CHI ROUTINE 6 MEDICAL ECG SERV W/LEAST FOUNDATIO 12 LDS N I&R ONLY RADIOLOGI 30302 [facility] C 6 Y Y EXAMINATI [facility] ON TIBIA & FIBULA [address] LUMBAR 46934 [facility] SPINE 6 Y Y W/[place] [address] [facility] HEAD/BRAI 6 Y Y N W/O HOSPITAL HOSPITAL CONTRAST MATERIAL RADEX HIP 34139 [facility] [place] SCALF CHAD 6 RADIOLOGY UNILATERA L WITH PELVIS 2-3 VIEWS AMBULANCE A0429 [facility] SERVICE 6 Yolanda-LAUREEN RUTLEDGE BLS CO EMS CO EMS EMERGENCY TRANSPORT GROUND A0425 [facility] MILEA 6 N-LAUREEN RUTLEDGE PER CO EMS CO EMS STATUTE MILE GROUND A0425 [facility] 6 Yolanda-LAUREEN RUTLEDGE PER CO EMS CO EMS STATUTE MILE AMBULANCE A0429 [facility] 6 Yolanda-LAUREEN RUTLEDGE BLS CO EMS CO EMS EMERGENCY TRANSPORT GROUND A0425 [facility] 6 Yolanda-LAUREEN RUTLEDGE PER CO EMS CO EMS STATUTE MILE AMB A0427 [facility] 6 Yolanda-LAUREEN RUTLEDGE ALS CO EMS CO EMS EMERGENCY TRANSPORT LEVEL 1 GROUND A0425 [facility] 6 Yolanda-LAUREEN RUTLEDGE PER CO EMS CO EMS STATUTE MILE AMBULANCE A0429 [facility] 6 N-LAUREEN RUTLEDGE BLS CO EMS CO EMS EMERGENCY TRANSPORT RADIOLOGI 03416 [facility] AKASH Uribe 6 RADIOLOGY III EXAMINATI ON PELVIS 1/[address] [place] [address] AKASH [facility] ABDOMEN & 6 MEDICAL [facility] PELVIS SERV W/O FOUNDATIO CONTRAST N MATERIAL NONEMERG A0120 [facility] TRNSPRT: 6 GRASS ULTRA MINI-BUS COMMUNITY TRANSIT MTN ACTION SERV AREA/OTH SYS NONEMERG A0120 [facility] TRNSPRT: 6 GRASS ULTRA MINI-BUS COMMUNITY TRANSIT MTN ACTION SERV AREA/OTH SYS RADEX 64630 [facility] 6 Y Y [facility] WITH PELVIS MINIMUM 5 VIEWS GROUND A0425 [facility] 6 AAMIR RUTLEDGE PER CO EMS CO EMS STATUTE MILE AMBULANCE A0429 [facility] SERVICE 6 Yolanda-LAUREEN RUTLEDGE BLS CO EMS CO EMS EMERGENCY TRANSPORT GROUND A0425 [facility] 6 AAMIR RUTLEDGE PER CO EMS CO EMS STATUTE MILE AMB A0427 [facility] 6 Yolanda-LAUREEN RUTLEDGE ALS CO EMS CO EMS EMERGENCY TRANSPORT LEVEL 1 ECG 65023 ROMEO WALTERS ROUTINE 6 SCO SCO ECG W/LEAST 12 LDS I&R ONLY URNLS DIP 42220 [facility] 6 N N STICK/TAB COMMUNTIY COMMUNTIY LET HOSPITA 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 AUTO MICROSCOP Y DRUG TEST G0479 [facility] 6 N N PRESUMP;I COMMUNTIY COMMUNTIY NSTRUMENT HOSPITA HOSPITA ED CHEMISTRY ANLYZER ECG 97894 [facility] ROUTINE 6 N N ECG COMMUNTIY COMMUNTIY W/LEAST HOSPITA HOSPITA 12 LDS TRCG ONLY W/O I&R THER 93637 [facility] PROPH/DX 6 N N NJX IV COMMUNTIY COMMUNTIY PUSH HOSPITA HOSPITA SINGLE/1S T SBST/DRUG CHIROPRAC 95206 [facility] JEANNINE TIC 6 N FAMILY JENNIFER MANIPULAT CHIROPRAC MARVA TX T SPINAL 3-4 REGIONS APPL 18595 [facility] JEANNINE MODALITY 6 N FAMILY JENNIFER 1/> AREAS CHIROPRAC TRACTION T MECHANICA L THERAPEUT 67055 [facility] IC 6 N N INJECTION COMMUNTIY COMMUNTIY IV PUSH HOSPITA HOSPITA EACH NEW DRUG INJECTION J2765 [facility] 6 N N METOCLOPR COMMUNTIY COMMUNTIY AMIDE HCL HOSPITA HOSPITA UP TO 10 MG INJECTION J1200 [facility] 6 N N DIPHENHYD COMMUNTIY COMMUNTIY RAMINE HOSPITA HOSPITA HCL UP TO 50 MG INJECTION J1885 [facility] 6 N N KETOROLAC COMMUNTIY COMMUNTIY HOSPITA HOSPITA TROMETHAM INE PER 15 MG GROUND A0425 [facility] MILEAGE 6 AAMIR FRENCH IN EMS CO EMS STATUTE MILE AMBULANCE A0429 [facility] SERVICE 6 AAMIR IVERSON CO EMS CO EMS EMERGENCY TRANSPORT AMBULANCE A0429 [facility] SERVICE 6 AAMIR IVERSON IN EMS CO EMS EMERGENCY TRANSPORT GROUND A0425 [facility] MILEAGE 6 N-LAUREEN Guerrero-LAUREEN PER CO EMS CO EMS STATUTE MILE RADIOLOGI 92574 [facility] [place] SCALF CHAD C 6 RADIOLOGY EXAMINATI ON PELVIS 1/2 VIEWS THERAPEUT 15236 [facility] IC 6 N N INJECTION COMMUNTIY COMMUNTIY IV [place] [address] [facility] INFUSION 6 N N HYDRATION COMMUNTIY COMMUNTIY EACH HOSPITA HOSPITA ADDITIONA L HOUR THER 38284 [facility] PROPH/DX 6 N N NJX IV COMMUNTIY COMMUNTIY PUSH HOSPITA HOSPITA SINGLE/1S T SBST/DRUG INJECTION J1885 [facility] 6 N N KETOROLAC COMMUNTIY COMMUNTIY HOSPITA HOSPITA TROMETHAM INE PER 15 MG INJECTION J1200 [facility] 6 N N DIPHENHYD COMMUNTIY COMMUNTIY RAMINE HOSPITA HOSPITA HCL UP TO 50 MG INFUSION J7030 [facility] NORMAL 6 N N SALINE COMMUNTIY COMMUNTIY SOLUTION HOSPITA HOSPITA 1000 CC INJECTION J2765 [facility] 6 N N METOCLOPR COMMUNTIY COMMUNTIY AMIDE HCL HOSPITA HOSPITA UP TO 10 MG INJECTION J2360 [facility] 6 N N ORPHENADR COMMUNTIY COMMUNTIY INE HOSPITA HOSPITA CITRATE UP TO 60 MG GROUND A0425 [facility] Yolanda-LAUREEN Guerrero-LAUREEN PER CO EMS CO EMS STATUTE MILE AMBULANCE A0429 [facility] SERVICE 6 Yolanda-LAUREEN Guerrero-LAUREEN BLS CO EMS CO EMS EMERGENCY TRANSPORT THERAPEUT 59720 [facility] IC 6 N N PROPHYLAC COMMUNTIY COMMUNTIY TIC/DX HOSPITA HOSPITA INJECTION SUBQ/IM THERAPEUT 63617 [facility] IC 6 N N PROPHYLAC COMMUNTIY COMMUNTIY TIC/DX HOSPITA HOSPITA INJECTION SUBQ/IM RADEX HIP 03881 [facility] [place] ARREAGA 6 RADIOLOGY GEETHA UNILATERA L WITH PELVIS 2-3 VIEWS AMBULANCE A0429 [facility] 6 AAMIR CRS CO EMS CO EMS EMERGENCY TRANSPORT GROUND A0425 [facility] MILEA 6 Yolanda-LAUREEN RUTLEDGE PER CO EMS CO EMS STATUTE MILE INJECTION J2360 [facility] 6 N N ORPHENADR COMMUNTIY COMMUNTIY INE HOSPITA HOSPITA CITRATE UP TO 60 MG NONEMERG A0120 [facility] TRNSPRT: 6 GRASS ULTRA MINI-BUS COMMUNITY TRANSIT MTN ACTION SERV AREA/OTH SYS GROUND A0425 [facility] AAMIR RUTLEDGE PER CO EMS CO EMS STATUTE MILE AMBULANCE A0429 [facility] 6 AAMIR CRS CO EMS CO EMS EMERGENCY TRANSPORT RADEX HIP 73340 AKASH CRUZ 6 MEDICAL BAR UNILATERA SERV L WITH FOUNDATIO PELVIS N 2-3 VIEWS RADIOLOGI 04330 AKASH Uribe 6 MEDICAL BAR EXAMINATI SERV ON FEMUR FOUNDATIO MINIMUM 2 N VIEWS SCREENING [address] TOMOSYNTH ESIS BI COMPUTER- [address] SCREENING MAMMOGRAP HY SCREENING [id number] [address] HY CAROLYN INCL CAD WHEN PERFORMD NONEMERG A0120 [facility] TRNSPRT: 6 GRASS ULTRA MINI-BUS COMMUNITY TRANSIT MTN ACTION SERV AREA/OTH SYS NONEMERG A0120 [facility] TRNSPRT: 6 GRASS ULTRA MINI-BUS COMMUNITY TRANSIT MTN ACTION SERV AREA/OTH SYS NONEMERG A0120 [facility] TRNSPRT: 5 GRASS ULTRA MINI-BUS COMMUNITY TRANSIT MTN ACTION SERV AREA/OTH SYS AMB A0427 [facility] 5 AAMIR RUTLEDGE ALS CO EMS CO EMS EMERGENCY TRANSPORT LEVEL 1 GROUND A0425 [facility] MILEA 5 AAMIR RUTLEDGE [place] [address] AKASH BESS HEAD/BRAI 5 MEDICAL KATI N W/O SERV CONTRAST FOUNDATIO MATERIAL N RADEX 98517 [facility] SPINE 5 RADIOLOGY CERVICAL ASSOC 2 OR 3 VIEWS RADEX 61371 [facility] SP[facility] 1 5 RADIOLOGY VIEW ASSOC SPECIFY LEVEL CHIROPRAC 93977 [facility] PAEZ TIC 5 N FAMILY JENNIFER MANIPULAT CHIROPRAC MARVA TX T SPINAL 3-4 REGIONS ECG 74053 AKASH HERNANDEZG ANDREW ROUTINE 5 MEDICAL ECG SERV W/LEAST FOUNDATIO 12 LDS N I&R ONLY ECG 29494 AKASH KACI CHI ROUTINE 5 MEDICAL ECG SERV W/LEAST FOUNDATIO 12 LDS N I&R ONLY BLOOD 69434 [facility] COUNT 5 Y Y COMPLETE [facility] [place] [address] [facility] TROPONIN 5 Y Y QUANTITAT [facility] MARVA RADIOLOGI 72041 [place] KANDICE C 5 MEDICAL BREANNA EXAMINATI SERV ON CHEST [place] [address] [facility] ABDOMEN & 5 Y Y PELVIS [facility] W/CONTRAS T MATERIAL RADIOLOGI 98814 [facility] C 5 Y Y EXAMINATI [facility] ON PELVIS 1/2 VIEWS LOCM Q9967 [facility] [phone] Y Y MG/ML [facility] IODINE CONCENTRA TION PER ML COMPREHEN 56187 [facility] SIVE 5 Y Y METABOLIC [facility] PANEL ECG 13378 [facility] ROUTINE 5 Y Y ECG [facility] W/LEAST 12 LDS TRCG ONLY W/O I&R CHIROPRAC 56330 [facility]ORGI[facility]arivel PAEZ TIC 5 N FAMILY JENNIFER MANIPULAT CHIROPRAC MARVA TX T SPINAL 3-4 REGIONS CHIROPRAC 97783 [facility] JEANNINE TIC 5 N FAMILY JENNIFER MANIPULAT CHIROPRAC MARVA TX T SPINAL 3-4 REGIONS APPL 55045 [facility] JEANNINE MODALITY 5 N FAMILY JENNIFER 1/> AREAS CHIROPRAC TRACTION T MECHANICA L APPL 20784 [facility] JEANNINE MODALITY 5 N FAMILY JENNIFER 1/> AREAS CHIROPRAC ELEC T STIMJ EA 15 MIN THERAPEUT 56056 [facility] PX [facility]/> 5 N FAMILY JENNIFER AREAS CHIROPRAC EACH 15 T MIN EXERCISES RADIOLOGI 81569 [facility] [place] MARY C 5 RADIOLOGY RHO EXAMINATI ON CHEST SINGLE VIEW FRONTAL OBSERVATI 90612 AIMEE AIMEE ON CARE 5 HUG HUG DISCHARGE MANAGEMEN T SBSQ 82344 [facility] OBSERVATI 5 N MICHAEL ON CARDIOLOG CARE/DAY Y 25 MINUTES AMB A0427 [facility] SERVICE 5 AAMIR RUTLEDGE ALS CO EMS CO EMS EMERGENCY TRANSPORT LEVEL 1 GROUND A0425 [facility] MILEAGE 5 AAMIR RUTLEDGE PER CO EMS CO EMS STATUTE MILE RADIOLOGI 08694 [facility] C 5 BRO BRO EXAMINATI [place] [address] [facility] [place] MARY HEAD/BRAI 5 RADIOLOGY RHO N W/O CONTRAST MATERIAL ECG 81790 AIMEE AIMEE ROUTINE 5 HUG HUG ECG W/LEAST 12 LDS I&R ONLY CV STRS 94537 JUSTIN TEJEDA TST 5 N MICHAEL XERS&/OR CARDIOLOG RX CONT Y ECG I&R ONLY RADEX 68085 [facility] [place] MARY HIPS 5 RADIOLOGY RHO BILATERAL 2 VIEWS ANTEROPOS T PELVIS ECHO 35535 JUSTIN TEJEDA TTHRC R-T 5 N MICHAEL 2D CARDIOLOG W/WOM-MOD Y E COMPL SPEC&COLR D CV STRS 31164 GIORGIOMarivel TEJEDA TST 5 N MICHAEL XERS&/OR CARDIOLOG RX CONT Y ECG W/O I&R MYOCARDIA 73426 GIORGIOMarivel TEJEDA L SPECT 5 N MICHAEL MULTIPLE CARDIOLOG STUDIES Y INITIAL 66085 AIMEE AIMEE OBSERVATI 5 HUG HUG ON CARE/DAY 70 MINUTES APPL 49616 [facility] JEANNINE MODALITY 5 N FAMILY JENNIFER 1/> AREAS CHIROPRAC ELEC T STIMJ UNATTENDE D APPL 10323 [facility] JEANNINE MODALITY 5 N FAMILY JENNIFER 1/> AREAS CHIROPRAC TRACTION T MECHANICA L CHIROPRAC 17996 [facility] JEANNINE TIC 5 N FAMILY JENNIFER MANIPULAT CHIROPRAC MARVA TX T SPINAL 3-4 REGIONS APPL 79168 [facility] JEANNINE MODALITY 5 N FAMILY JENNIFER 1/> AREAS CHIROPRAC TRACTION T MECHANICA L APPL 70589 [facility] JEANNINE MODALITY 5 N FAMILY JENNIFER 1/> AREAS CHIROPRAC ELEC T STIMJ UNATTENDE D CHIROPRAC 75339 [facility] JEANNINE TIC 5 N FAMILY JENNIFER MANIPULAT CHIROPRAC MARVA TX T SPINAL 3-4 REGIONS APPL 34474 [facility] JEANNINE MODALITY 5 N FAMILY JENNIFER 1/> AREAS CHIROPRAC ELEC T STIMJ UNATTENDE D APPL 40106 [facility] JEANNINE MODALITY 5 N FAMILY JENNIFER 1/> AREAS CHIROPRAC TRACTION T MECHANICA L CHIROPRAC 54526 [facility] JEANNINE TIC 5 N FAMILY JENNIFER MANIPULAT CHIROPRAC MARVA TX T SPINAL 3-4 REGIONS CHIROPRAC 08591 [facility] JEANNINE TIC 5 N FAMILY JENNIFER MANIPULAT CHIROPRAC MARVA TX T SPINAL 3-4 REGIONS APPL 98679 [facility] JEANNINE MODALITY 5 N FAMILY JENNIFER 1/> AREAS CHIROPRAC TRACTION T MECHANICA L APPL 44777 [facility] JEANNINE MODALITY 5 N FAMILY JENNIFER 1/> AREAS CHIROPRAC ELEC T STIMJ UNATTENDE D THERAPEUT 81828 [facility] JEANNINE IC PX 1/> 5 N FAMILY JENNIFER AREAS CHIROPRAC EACH 15 T MIN EXERCISES COMPREHEN 25171 [facility] 5 Y Y METABOLIC [facility] PANEL BLOOD 75805 [facility] COUNT 5 Y Y COMPLETE [facility] AUTO&AUTO DIFRNTL WBC COLLECTIO 07847 [facility] N VENOUS 5 Y Y BLOOD [facility] VENIPUNCT URE RADIOLOGI 67264 [place] NICKELS C 5 MEDICAL NIKKIE EXAMINATI SERV ON PELVIS FOUNDATIO 1/2 N VIEWS CHIROPRAC 23599 [facility] 5 N FAMILY JENNIFER MANIPULAT CHIROPRAC MARVA TX T SPINAL 3-4 REGIONS GROUND A0425 [facility] MILEAGE 5 Yolanda-LAUREEN RUTLEDGE PER CO EMS CO EMS STATUTE MILE AMBULANCE A0429 [facility] SERVICE 5 Yolanda-LAUREEN RUTLEDGE BLS CO EMS CO EMS EMERGENCY TRANSPORT CHIROPRAC 98497 GIORGIOMarivel PAEZ TIC 5 N FAMILY JENNIFER MANIPULAT CHIROPRAC MARVA TX T SPINAL 3-4 REGIONS IAADIADOO 14171 [facility] RABIEE 5 N URGENT [place] [address] [place] KWA HEAD/BRAI 5 MEDICAL N W/O SERV CONTRAST FOUNDATIO MATERIAL N ECG 23624 [place] KACI CHI ROUTINE 5 MEDICAL ECG SERV W/LEAST FOUNDATIO 12 LDS N I&R ONLY CHIROPRAC 52594 JUSTIN PAEZ TIC 5 N FAMILY JENNIFER MANIPULAT CHIROPRAC MARVA TX T SPINAL 3-4 REGIONS APPL 40713 JUSTIN PAEZ MODALITY 5 N FAMILY JENNIFER 1/> AREAS CHIROPRAC TRACTION T MECHANICA L APPL 63795 JUSTIN PAEZ MODALITY 5 N FAMILY JENNIFER 1/> AREAS CHIROPRAC ELEC T STIMJ UNATTENDE D CHIROPRAC 05672 JUSTIN PAEZ TIC 5 N FAMILY JENNIFER MANIPULAT CHIROPRAC MARVA TX T SPINAL 3-4 REGIONS RADEX HIP 52047 AKASH CARLOS 5 MEDICAL FRA [place] SERV L FOUNDATIO COMPLETE N MINIMUM 2 VIEWS RADIOLOGI 71348 [place] CARLOS C 5 MEDICAL FRA EXAMINATI SERV ON PELVIS FOUNDATIO 1/2 N VIEWS CHIROPRAC 89112 [facility] TIC 5 N FAMILY JENNIFER MANIPULAT CHIROPRAC [place] T SPINAL 3-4 REGIONS MRI BRAIN 95141 [facility] BRAIN 5 Y Y STEM W/O [facility] W/CONTRAS T MATERIAL INJECTION [id number] [facility] 5 Y Y [facility] L 0.1 ML SERVICE G0151 [facility] HH/HOSPIC E EA 15 MIN LEVEL III 32207 [facility] 5 Y OF ANTOINE PATHOLOGY [facility] GROSS&YELITZA ROSCOPIC EXAM DECALCIFI 97293 [facility] CATION 5 Y OF ANTOINE PROCEDURE [facility] RADIOLOGI 79923 [place] [facility] C 5 MEDICAL STEVO EXAMINATI SERV ON PELVIS FOUNDATIO 1/2 N VIEWS RADEX HIP 19625 [place]AY[place] 5 MEDICAL STEVO [place] SERV L FOUNDATIO COMPLETE N MINIMUM 2 VIEWS ARTHRP 40789 [place] ACETBLR/P 5 MEDICAL LETHA FEM SERV PROSTC FOUNDATIO AGRFT/ALG N RFT ANESTHESI 17450 COMMONWEReina JUNIOR SULAIMAN A OPEN 5 LTH TOTAL HIP ANESTHESI A PSC ARTHROPLA STY CHIROPRAC 77193 JUSTIN PAEZ TIC 5 N FAMILY JENNIFER MANIPULAT CHIROPRAC [place] T SPINAL 3-4 REGIONS COMPRE 26037 AKASH LANDIN AUDIOMETR 5 MEDICAL CHAD Y SERV THRESHOLD FOUNDATIO EVAL SP N RECOGNIJ TYMPANOME 81316 [place] TRY 5 MEDICAL CHAD SERV FOUNDATIO N CUL BACT 36167 [facility] AEROBIC 5 Y Y ADDL [facility] METHS DEFINITIV E EA ISOL CULTURE 45993 [facility] BACTERIAL 5 Y Y HOSPITAL [facility] QUANTTATI VE COLONY COUNT URINE BASIC 70742 [facility] METABOLIC 5 Y Y PANEL [facility] CALCIUM TOTAL URNLS DIP 83065 [facility] 5 Y Y STICK/TAB [facility] LET REAGENT AUTO MICROSCOP Y COLLECTIO 31674 [facility] N VENOUS 5 Y Y BLOOD [facility] VENIPUNCT URE SUSCEPTIB 97122 [facility] LTY STDY [facility] I[facility]CRO/AGA R DILUTJ CHIROPRAC 24315 JUSTIN PAEZ TIC 5 N FAMILY JENNIFER MANIPULAT CHIROPRAC [place] T SPINAL 3-4 REGIONS CHIROPRAC 03196 JUSTIN PAEZ TIC 5 N FAMILY JENNIFER MANIPULAT CHIROPRAC [place] T SPINAL 3-4 REGIONS CHIROPRAC 65269 JUST[facility] PAEZ TIC 5 N FAMILY JENNIFER MANIPULAT CHIROPRAC [place] T SPINAL 3-4 REGIONS CHIROPRAC 58970 JUSTIN PAEZ TIC 5 N FAMILY JENNIFER MANIPULAT CHIROPRAC [place] T SPINAL 3-4 REGIONS CATH 29058 [facility] PLACEMENT 5 Y Y & NJX [facility] CORONARY ART ANGIO IMG S&I BLOOD 14898 [facility] COUNT 5 Y Y COMPLETE HOSPITAL [facility]OSPITAL AUTOMATED BASIC 29603 [facility] METABOLIC 5 Y Y PANEL [facility] CALCIUM TOTAL LOCM Q9967 [facility] [phone] Y Y MG/ML [facility] IODINE CONCENTRA TION PER ML INJECTION J1644 [facility] HEPARIN 5 Y Y SODIUM [facility] PER 1000 UNITS GUIDE C1769 [facility] WIRE 5 Y Y HOSPITAL [facility]OSPITAL INJECTION J3010 [facility] FENTANYL 5 Y Y CITRATE [facility] 0.1 MG CATHETER C1887 [facility] GUIDING 5 Y Y [facility] INTRDUCR/ C1894 [facility] SHEATH 5 Y Y NOT GUID [facility] INTRACARD EP NON-LASR INJECTION J2250 [facility] 5 Y Y [place] [facility] [facility] PER 1 MG THERAPEUT 23746 JUSTIN REYNA IC PX 1/> 5 N FAMILY ANDREW AREAS CHIROPRAC EACH 15 T MIN EXERCISES APPL 93607 JUSTIN REYNA MODALITY 5 N FAMILY ANDREW 1/> AREAS CHIROPRAC TRACTION T MECHANICA L CHIROPRAC 10411 JUSTIN REYNA TIC 5 N FAMILY ANDREW MANIPULAT CHIROPRAC [place] T SPINAL 3-4 REGIONS CV STRS 55384 [facility] TST 5 Y Y XERS&/OR HOSPITAL HOSPITAL RX CONT ECG TRCG ONLY ECHO 99896 AKASH ENAMORADO JEN TTHRC R-T 5 MEDICAL 2D W/WO SERV M-MODE FOUNDATIO REST&STRS N CONT ECG THERAPEUT 42414 JUSTIN PAEZ IC PX 1/> 5 N FAMILY JENNIFER AREAS CHIROPRAC EACH 15 T MIN EXERCISES APPL 84611 JUSTIN PAEZ MODALITY 5 N FAMILY JENNIFER 1/> AREAS CHIROPRAC ELEC T STIMJ UNATTENDE D CHIROPRAC 23869 JUSTIN PAEZ TIC 5 N FAMILY JENNIFER MANIPULAT CHIROPRAC [place] T SPINAL 3-4 REGIONS APPL 64544 GIORGIOMarivel PAEZ MODALITY 5 N FAMILY JENNIFER 1/> AREAS CHIROPRAC TRACTION T MECHANICA L APPL 40980 GIORGIOMarivel PAEZ MODALITY 5 N FAMILY JENNIFER 1/> AREAS CHIROPRAC TRACTION T MECHANICA L CHIROPRAC 34964 JUSTIN PAEZ TIC 5 N FAMILY JENNIFER MANIPULAT CHIROPRAC [place] T SPINAL 3-4 REGIONS THERAPEUT 02196 GIORGIOMarivel PAEZ IC PX 1/> 5 N FAMILY JENNIFER AREAS CHIROPRAC EACH 15 T MIN EXERCISES CHIROPRAC 74306 JUSTIN PAEZ TIC 5 N FAMILY JENNIFER MANIPULAT CHIROPRAC [place] T SPINAL 3-4 REGIONS RADEX HIP 10139 [place] RANJEET JAM 5 MEDICAL UNILATERA SERV L FOUNDATIO COMPLETE N MINIMUM 2 VIEWS BASIC 43069 [facility] 5 Y Y [facility] CALCIUM TOTAL RADEX HIP 35384 [facility] [place] SCALF CHAD 5 RADIOLOGY UNILATERA L COMPLETE MINIM[place] 2 [place] [address] [facility] MAGNESIUM 4 N N [facility] HOSPITA HOSPITA ECG 64034 [facility] ROUTINE 4 N N ECG [facility] W/LEAST HOSPITA HOSPITA 12 LDS TRCG ONLY W/O I&R COMPREHEN 18465 [facility] SIVE 4 N N METABOLIC [facility] PANEL HOSPITA HOSPITA ECG 90605 PUND CHR PUND CHR ROUTINE 4 ECG W/LEAST 12 LDS I&[place] [address] [facility] TROPONIN 4 N N QUANTITAT [facility] [place] [facility]PITA HOSPITA BLOOD 69229 [facility] COUNT 4 N N COMPLETE [facility] AUTO&AUTO HOSPITA HOSPITA DIFRNTL WBC COLLECTIO 24633 [facility] N VENOUS 4 N N BLOOD [facility] VENIPUNCT HOSPITA HOSPITA URE RADIOLOGI 59141 [facility] [place] MARY C 4 RADIOLOGY RHO EXAMINATI ON CHEST SINGLE VIEW FRONTAL DIAGNOSTI G0206 [place] DELL CAR C 4 MEDICAL MAMMOGRAP SERV HY INCL FOUNDATIO CAD WHEN N PERF; UNI COMPUTER- 81040 [facility] AIDED 4 Y Y DETECTION [facility] DX MAMMOGRAP HY RADIOLOGI 24268 [place] TRUE GEOFF C 4 MEDICAL EXAMINATI SERV ON CHEST FOUNDATIO SINGLE N VIEW FRONTAL ECG 05682 [place] SIGALA ROUTINE 4 MEDICAL NAN ECG SERV W/LEAST FOUNDATIO 12 LDS N I&R ONLY AMB A0427 [facility] 4 AAMIR RUTLEDGE ALS CO EMS CO EMS EMERGENCY TRANSPORT LEVEL 1 GROUND A0425 [facility] 4 AAMIR RUTLEDGE PER CO EMS CO EMS STATUTE MILE MRI BRAIN 03226 [facility] BRAIN 4 Y Y STEM W/O [facility] W/CONTRAS T MATERIAL INJECTION A9585 [facility] 4 Y Y GADOBUTRO [facility] L 0.1 ML ELECTROEN 37823 [place] KARO JEN CEPHALOGR 4 MEDICAL AM EXTND SERV MNTR >1 FOUNDATIO HR N ELECTROEN 36250 [facility] CEPHALOGR 4 Y Y AM W/REC [facility] AWAKE&ASL EEP CREATININ 05000 [facility] E BLOOD 4 Y Y [facility] CHIROPRAC 30302 [facility] JEANNINE TIC 4 N FAMILY JENNIFER MANIPULAT CHIROPRAC [place] T SPINAL 3-4 REGIONS COMPUTER- 15658 [place] ROSA CHAD AIDED 4 MEDICAL DETECTION SERV FOUNDATIO SCREENING N MAMMOGRAP HY SCREENING G0202 [place] ROSA CHAD 4 MEDICAL MAMMOGRAP SERV HY CAROLYN FOUNDATIO INCL CAD N WHEN PERFORMD GROUND A0425 [facility] 4 AAMIR RUTLEDGE PER CO EMS CO EMS STATUTE MILE AMBULANCE A0429 [facility] 4 AAMIR RUTLEDGE BLS CO EMS CO EMS EMERGENCY TRANSPORT CHIROPRAC 38116 [facility] JEANNINE TIC 4 N FAMILY JENNIFER MANIPULAT CHIROPRAC [place] T SPINAL 3-4 REGIONS ANES 87714 [place] DORITY INTRAPERI 4 MEDICAL KRISTINA TONEAL SERV UPPER FOUNDATIO ABDOMEN W/LAPS NOS LAPAROSCO 38211 [place] LEELA PY SURG 4 MEDICAL DEANNA CHOLECYST SERV ECTOMY FOUNDATIO N LEVEL III 14857 [facility] CASTELAN SURG 4 Y OF DANY PATHOLOGY [facility]&YELITZA ROSCOPIC EXAM CHIROPRAC 33320 [facility] GIORGIOMarivel TIC 4 N FAMILY N FAMILY MANIPULAT CHIROPRAC CHIROPRAC [place] T T SPINAL 3-4 REGIONS APPL 01975 [facility] JEANNINE MODALITY 4 N FAMILY JENNIFER 1/> AREAS CHIROPRAC ELEC T STIMJ UNATTENDE D APPL 79858 [facility] JEANNINE MODALITY 4 N FAMILY JENNIFER 1/> AREAS CHIROPRAC TRACTION T MECHANICA L THERAPEUT 89866 [facility] JEANNINE IC PX 1/> 4 N FAMILY JENNIFER AREAS CHIROPRAC EACH 15 T MIN EXERCISES RADEX HIP 76719 [facility] 4 Y [facility] COMPLE[facility] MINIMUM 2 VIEWS RADIOLOGI 25346 [facility] 4 [facility] P[facility]/2 VIEWS RADIOLOGI 11061 [facility] EXAM 4 Y Y CHEST 2 [facility] VIEWS FRONTAL&L ATERAL CHIROPRAC 12306 [facility] JEANNINE TIC 4 N FAMILY JENNIFER MANIPULAT CHIROPRAC [place] T SPINAL 3-[address] [place] [address] [place] NICKELS ABDOMEN & 4 MEDICAL NIKKIE PELVIS SERV W/CONTRAS FOUNDATIO T MATERIAL ECG 97205 [place] SIGALA ROUTINE 4 MEDICAL NAN ECG SERV W/LEAST FOUNDATIO 12 LDS [place] [address] [facility] EXTREMITY 4 Y Y [facility] REAL-TIME IMG LMTD LOCM Q9967 [facility] [phone] Y Y MG/ML HOSPITAL HOSPITAL IODINE CONCENTRA TION PER ML CHIROPRAC 00435 [facility] 4 N FAMILY JENNIFER MANIPULAT CHIROPRAC [place] T SPINAL 3-4 REGIONS APPL 80899 [facility] JEANNINE MODALITY 4 N FAMILY JENNIFER 1/> AREAS CHIROPRAC ELEC T STIMJ UNATTENDE D APPL 81558 JUSTIN JEANNINE MODALITY 4 N FAMILY JENNIFER 1/> AREAS CHIROPRAC TRACTION T MECHANICA L THERAPEUT 12264 JUSTIN PAEZ IC PX 1/> 4 N FAMILY JENNIFER AREAS CHIROPRAC EACH 15 T MIN EXERCISES THERAPEUT 59401 JUSTIN PAEZ IC PX 1/> 4 N FAMILY JENNIFER AREAS CHIROPRAC EACH 15 T MIN EXERCISES APPL 61949 JUSTIN JEANNINE MODALITY 4 N FAMILY JENNIFER 1/> AREAS CHIROPRAC TRACTION T MECHANICA L APPL 30350 JUSTIN JEANNINE MODALITY 4 N FAMILY JENNIFER 1/> AREAS CHIROPRAC ELEC T STIMJ UNATTENDE D CHIROPRAC 80724 JUSTIN PAEZ TIC 4 N FAMILY JENNIFER MANIPULAT CHIROPRAC [place] T SPINAL 3-4 REGIONS APPL 01571 JUSTIN JEANNINE MODALITY 4 N FAMILY JENNIFER 1/> AREAS CHIROPRAC T ULTRASOUN D EA 15 MIN CHIROPRAC 84989 JUSTIN PAEZ TIC 4 N FAMILY JENNIFER MANIPULAT CHIROPRAC [place] T SPINAL 3-4 REGIONS APPL 30747 JUSTIN JEANNINE MODALITY 4 N FAMILY JENNIFER 1/> AREAS CHIROPRAC ELEC T STIMJ UNATTENDE D APPL 69690 JUSTIN JEANNINE MODALITY 4 N FAMILY JENNIFER 1/> AREAS CHIROPRAC TRACTION T MECHANICA L THERAPEUT 76668 JUSTIN PAEZ IC PX 1/> 4 N FAMILY JENNIFER AREAS CHIROPRAC EACH 15 T MIN EXERCISES AMBULANCE A0429 [facility] SERVICE 4 AAMIR CRS CO EMS CO EMS EMERGENCY TRANSPORT GROUND A0425 [facility] MILEA 4 AAMIR RUTLEDGE PER CO EMS CO EMS STATUTE MILE THERAPEUT 24336 JUSTIN PAEZ IC PX 1/> 4 N FAMILY JENNIFER AREAS CHIROPRAC EACH 15 T MIN EXERCISES CHIROPRAC 59543 JUSTIN PAEZ TIC 4 N FAMILY JENNIFER MANIPULAT CHIROPRAC [place] T SPINAL 3-4 REGIONS APPL 82467 [facility] JEANNINE MODALITY 4 N FAMILY JENNIFER 1/> AREAS CHIROPRAC TRACTION T MECHANICA L APPL 69870 [facility] JEANNINE MODALITY 4 N FAMILY JENNIFER 1/> AREAS CHIROPRAC ELEC T STIMJ UNATTENDE D APPL 90216 [facility] JEANNINE MODALITY 4 N FAMILY JENNIFER 1/> AREAS CHIROPRAC ELEC T STIMJ UNATTENDE D CHIROPRAC 91211 JUSTIN JEANNINE TIC 4 N FAMILY JENNIFER MANIPULAT CHIROPRAC [place] T SPINAL 3-4 REGIONS APPL 14148 [facility] JEANNINE MODALITY 4 N FAMILY JENNIFER 1/> AREAS CHIROPRAC TRACTION T MECHANICA L THERAPEUT 03749 JUSTIN PAEZ IC PX 1/> 4 N FAMILY JENNIFER AREAS CHIROPRAC EACH 15 T MIN EXERCISES THERAPEUT 20512 JUSTIN PAEZ IC PX 1/> 4 N FAMILY JENNIFER AREAS CHIROPRAC EACH 15 T MIN EXERCISES CHIROPRAC 79216 JUSTIN PAEZ TIC 4 N FAMILY JENNIFER MANIPULAT CHIROPRAC [place] T SPINAL 3-4 REGIONS APPL 64240 JUSTIN JEANNINE MODALITY 4 N FAMILY JENNIFER 1/> AREAS CHIROPRAC TRACTION T MECHANICA L APPL 16052 GIORGIOTOMarivel JEANNINE MODALITY 4 N FAMILY JENNIFER 1/> AREAS CHIROPRAC ELEC T STIMJ UNATTENDE D APPL 73917 JUSTIN JEANNINE MODALITY 4 N FAMILY JENNIFER 1/> AREAS CHIROPRAC ELEC T STIMJ UNATTENDE D APPL 95336 JUSTIN JEANNINE MODALITY 4 N FAMILY JENNIFER 1/> AREAS CHIROPRAC TRACTION T MECHANICA L CHIROPRAC 99217 JUSTIN PAEZ TIC 4 N FAMILY JENNIFER MANIPULAT CHIROPRAC [place] T SPINAL 3-4 REGIONS RADEX HIP 72598 [facility] 4 [facility] COM[facility] MINIMUM 2 VIEWS THERAPEUT 99117 JUSTIN PAEZ IC PX 1/> 4 N FAMILY JENNIFER AREAS CHIROPRAC EACH 15 T MIN EXERCISES CHIROPRAC 02360 JUSTIN FERRARA KRISTINA TIC 4 N FAMILY MANIPULAT CHIROPRAC [place] T SPINAL 3-4 REGIONS CHIROPRAC 41722 GIORGIOMarivel FERRARA KRISTINA TIC 4 N FAMILY MANIPULAT CHIROPRAC [place] T SPINAL 3-4 REGIONS THERAPEUT 82202 GIORGIOMarivel FERRARA KRISTINA IC PX 1/> 4 N FAMILY AREAS CHIROPRAC EACH 15 T MIN EXERCISES APPL 27529 GIORGIOMarivel FERRARA KRISTINA MODALITY 4 N FAMILY 1/> AREAS CHIROPRAC TRACTION T MECHANICA L APPL 69974 GIORGIOMarivel FERRARA KRISTINA MODALITY 4 N FAMILY 1/> AREAS CHIROPRAC ELEC T STIMJ UNATTENDE D APPL 72264 JUSTIN JEANNINE MODALITY 4 N FAMILY JENNIFER 1/> AREAS CHIROPRAC ELEC T STIMJ UNATTENDE D THERAPEUT 76324 JUSTIN PAEZ IC PX 1/> 4 N FAMILY JENNIFER AREAS CHIROPRAC EACH 15 T MIN EXERCISES APPL 05041 GOIRGIOGLADISMarivel PAEZ MODALITY 4 N FAMILY EJNNIFER 1/> AREAS CHIROPRAC TRACTION T MECHANICA L CHIROPRAC 71893 GIORGIOGLADISMarivel PAEZ TIC 4 N FAMILY JENNIFER MANIPULAT CHIROPRAC [place] T SPINAL 3-4 REGIONS CHIROPRAC 70123 GIORGIOGLADISMarivel PAEZ TIC 4 N FAMILY JENNIFER MANIPULAT CHIROPRAC [place] T SPINAL 3-4 REGIONS APPL 10274 GIORGIOGLADISMarivel PAEZ MODALITY 4 N FAMILY JENNIFER 1/> AREAS CHIROPRAC TRACTION T MECHANICA L THERAPEUT 88494 JUSTIN PAEZ IC PX 1/> 4 N FAMILY JENNIFER AREAS CHIROPRAC EACH 15 T MIN EXERCISES CHIROPRAC 45473 GIORGIOGLADISMarivel PAEZ TIC 4 N FAMILY JENNIFER MANIPULAT CHIROPRAC [place] T SPINAL 3-4 REGIONS APPL 44874 GIORGIOGLADISMarivel PAEZ MODALITY 4 N FAMILY JENNIFER 1/> AREAS CHIROPRAC ELEC T STIMJ UNATTENDE D CHIROPRAC 62542 GIORGIOZUNILDA JEANNINE TIC 4 N FAMILY JENNIFER MANIPULAT CHIROPRAC [place] T SPINAL 3-4 REGIONS CHIROPRAC 11093 [facility] JUSTIN TIC 4 N FAMILY N FAMILY MANIPULAT CHIROPRAC CHIROPRAC [place] T T SPINAL 3-4 REGIONS CHIROPRAC 42036 GIORGIOMarivel PAEZ TIC 4 N FAMILY JENNIFER MANIPULAT CHIROPRAC [place] T SPINAL 3-4 REGIONS CHIROPRAC 72202 [place] JEANNINE TIC 4 N FAMILY JENNIFER MANIPULAT CHIROPRAC [place] T SPINAL 3-4 REGIONS CHIROPRAC 35061 [facility] JEANNINE TIC 4 N FAMILY JENNIFER MANIPULAT CHIROPRAC [place] T SPINAL 3-4 REGIONS CHIROPRAC 12018 [facility] GIORGIOMarivel TIC 4 N FAMILY N FAMILY MANIPULAT CHIROPRAC CHIROPRAC [place] T T SPINAL 3-4 REGIONS CHIROPRAC 17525 [place] JEANNINE TIC 4 N FAMILY JENNIFER MANIPULAT CHIROPRAC [place] T SPINAL 3-4 REGIONS CHIROPRAC 17751 GIORGIOMarivel PAEZ TIC 4 N FAMILY JENNIFER MANIPULAT CHIROPRAC [place] T SPINAL 3-4 REGIONS CHIROPRAC 42236 GIORGIOMarivel PAEZ TIC 4 N FAMILY JENNIFER MANIPULAT CHIROPRAC [place] T SPINAL 3-4 REGIONS CHIROPRAC 36727 [place] JEANNINE TIC 4 N FAMILY JENNIFER MANIPULAT CHIROPRAC [place] T SPINAL 3-4 REGIONS RADEX 11709 [facility] JEANNINE SPINE 4 N FAMILY JENNIFER CERVICAL CHIROPRAC 2 OR 3 T VIEWS RADEX 84994 [facility] JEANNINE SPINE 4 N FAMILY JENNIFER LUMBOSACR CHIROPRAC AL 2/3 T VIEWS RADIOLOGI 83449 [facility] ANDREWS C 4 RADIOLOGY III JAM EXAMINATI ASSOC ON PELVIS 1/2 VIEWS RADIOLOGI 12814 [facility] CEJA C 4 RADIOLOGY ANITA EXAMINATI ASSOC ON CHEST SINGLE VIEW FRONTAL RADEX HIP 52746 [facility] ANDREWS 4 RADIOLOGY III JAM UNILATERA ASSOC L COMPLETE MINIMUM [address] THORAX 68594 [place] SANCHEZ JEN W/O 4 MEDICAL CONTRAST SERV MATERIAL FOUNDATIO N CATARACT 23125 [facility] 4 Y Y [facility] ANEST[facility] 16778 AKASH ROZINA A EYE 4 MEDICAL JESSEE [facility] SURGERY IAADIADOO 95561 [facility] RABIEE 4 N URGENT [place] [address] [place] AYOOB AND ABDOMEN & 4 MEDICAL PELVIS SERV W/O FOUNDATIO CONTRAST N MATERIAL ECG 74362 AKASH KACI CHI ROUTINE 4 MEDICAL ECG SERV W/LEAST FOUNDATIO 12 LDS N I&R ONLY ARTHROCEN 66244 [facility] 4 Y Y ASPIR&/IN HOSPITAL HOSPITAL J MAJOR JT/BURSA W/O US INJECTION J3301 [place] [address] Y Y [facility] LONE ACETONIDE NOS 10 MG OPH BMTRY 22722 [facility] US 4 MEDICAL SEE ECHOGRAPY SERV A-SCAN FOUNDATIO IO LENS PWR IBIS OPHTH 92696 [facility]ASH [facility] MEDICAL 4 MEDICAL SEE XM&EVAL SERV COMPRHNSV FOUNDATIO ESTAB PT 1/> COMPUTERI 48651 AKASH [facility] ZED 4 MEDICAL SEE OPHTHALMI SERV C IMAGING FOUNDATIO OPTIC NERVE RADEX HIP 95534 AKASH PARVEEN 4 MEDICAL KRISTINA UNILATERA SERV L FOUNDATIO COMPLETE N MINIMUM 2 VIEWS ECG 52728 AKASH VALADEZO ROUTINE 4 MEDICAL ECG SERV W/LEAST FOUNDATIO 12 LDS N I&R ONLY RADIOLOGI 57058 AKASH PARVEEN C 4 MEDICAL KRISTINA EXAMINATI SERV ON CHEST FOUNDATIO SINGLE VIEW FRONTAL Encounters Encounter Start End Date Code Location Performer Type Date OFFICE 84926 [facility] SURINDER INTERIANO 7 7 PHYSICIAN T [facility] 20 S GROUP MINUTES [facility] ROMEO Herrera 7 [facility] T EMERGENCY 43070 ROMEO 7 7 [facility] DEPARTMEN INC T VISIT LOW/MODER SEVERITY EMERGENCY 43114 PHIL BERGER 7 7 PHYSICIAN JR DEPARTMEN S, PLLC T VISIT HIGH/URGE NT SEVERITY HOSPITAL ROMOE - 7 7 [facility] EMER[facility] 62344 PHIL CARLOSEY DEPT 7 7 PHYSICIAN VISIT S, PLLC HIGH SEVERITY& THREAT FUN [facility] 08382 [facility] 6 6 Y [facility] T VISIT MODERATE SEVERITY HOSPITAL [facility] - 6 6 Y [facility] 71182 [place] [facility] 6 6 MEDICAL T VISIT SERV 25 FOUNDATIO MINUTES N HOSPITAL [facility] - 6 6 N OUTPATIEN COMMUNTIY T HOSPITA EMERGENCY 86782 CELLAROSI CELLAROSI 6 6 - [facility] T VISIT MODERATE SEVERITY EMERGENCY 26498 [facility] 6 6 N [facility] COMMUNTIY T VISIT HOSPITA LIMITED/M INOR [facility] H[facility]PITAL [facility] - 6 6 N OUTPATIEN COMMUNTIY T HOSPITA EMERGENCY 83165 [facility] 6 6 N [facility] T VISIT HOSPITA MODERATE SEVERITY OFFICE 64269 [facility] 6 6 [place] T VISIT PHYSICIAN 15 S ASSIST MINUTES HOSPITAL [facility] - 6 6 N OUTPATIEN COMMUNTIY T HOSPITA [facility]OSPITAL UNIVERS[facility] - 6 6 Y [facility] OFF[facility] 20792 [facility] 6 6 Y T VISIT 5 HOSPITAL MINUTES EMERGENCY 04553 [facility] 6 6 N [facility] T VISIT HOSPITA MODERATE SEVERITY HOSPITAL [facility] - 6 6 N OUTPATIEN COMMUNTIY T HOSPITA EMERGENCY 83165 [facility] O' REEL 6 6 MONI DEANNA DEPARTMEN EMERGENCY T VISIT SERVI MODERATE SEVERITY HOSPITAL [facility] - 6 6 N OUTPATIEN COMMUNTIY T HOSPITA HOSPITAL [facility] - 6 6 N OUTPATIEN COMMUNTIY T HOSPITA EMERGENCY 04376 MICHAEL RODRIGUEZ 6 6 STEVO STEVO DEPARTMEN T VISIT HIGH/URGE NT SEVERITY EMERGENCY 42742 [facility] 6 6 N DEPARTMEN COMMUNTIY T VISIT HOSPITA MODERATE SEVERITY HOSPITAL [facility] - 6 6 Y [facility] T EMERGENC[facility] 96596 [facility] 6 6 Y [facility] T VISIT MODERATE SEVERITY EMERGENCY 13828 AKASH ROLLINSVER 6 6 MEDICAL KARLI DEPARTMEN SERV T VISIT FOUNDATIO HIGH/URGE N NT SEVERITY HOSPITAL [facility] - 6 6 [facility] T EMERGENCY 89760 AKASH KUMARI 6 6 MEDICAL MAT DEPARTMEN SERV T VISIT FOUNDATIO MODERATE N SEVERITY EMERGENCY 91171 [facility] 6 6 Y [facility] T VISIT HIGH/URGE NT SEVERITY OFFICE 68409 [facility] 6 6 [place] FAMILY I DAYAN T VISIT MEDICINE 25 P [facility] UNIVERSIT - 6 6 Y [facility] T OFFICE 05600 AKASH [facility] 6 6 MEDICAL T VISIT SERV 15 FOUNDATIO MINUTES N OFFICE 00084 [facility] 6 6 Y T VISIT 5 [facility] - 6 6 N OUTPATIEN COMMUNTIY T HOSPITA EMERGENCY 80215 [facility] 6 [facility] HOSPITA HIGH/URGE NT SEVERITY EMERGENCY 38714 [facility] 6 6 N DEPARTMEN COMMUNTIY T VISIT HOSPITA MODERATE SEVERITY EMERGENCY 07907 MECCARIEL MECCARIEL 6 6 LO TRA LO TRA DEPARTMEN T VISIT HIGH/URGE NT SEVERITY HOSPITAL [facility] - 6 6 N OUTPATIEN COMMUNTIY T HOSPITA HOSPITAL [facility] - 6 6 N OUTPATIEN COMMUNTIY T HOSPITA EMERGENCY 39076 MICHAEL RODRIGUEZ 6 6 STEVO STEVO DEPARTMEN T VISIT MODERATE SEVERITY EMERGENCY 48182 [facility] 6 6 N DEPARTMEN COMMUNTIY T VISIT HOSPITA HIGH/URGE NT SEVERITY HOSPITAL [facility] - 6 6 N OUTPATIEN COMMUNTIY T HOSPITA EMERGENCY 20571 [facility] 6 6 N DEPARTMEN COMMUNTIY T VISIT HOSPITA MODERATE SEVERITY HOSPITAL [facility] - 6 6 N [facility]PAT[facility] - 6 6 N OUTPATIEN COMMUNTIY T HOSPITA EMERGENCY 22450 [facility] 6 6 [facility] HOSPITA MODERATE SEVERITY EMERGENCY 29100 [facility] 6 6 [facility] T VISIT SERV HIGH/URGE NT SEVERITY EMERGENCY 26580 [facility] 6 6 Y [facility] T VISIT HIGH/URGE NT SEVERITY EMERGENCY 46693 AKASH LUKEMOREIRA 6 6 MEDICAL [facility]ZA [facility] T VISIT FOUNDATIO MODERATE N SEVERITY HOSPITAL [facility] - 6 6 [facility] - 6 6 Y [facility] T OFFICE 71669 [facility] OUTPATI 6 [address], [facility] UNIVERSIT - 5 5 Y [facility] T EMERGENCY 67490 [facility] 5 5 Y [facility] T VISIT HIGH/URGE NT SEVERITY EMERGENCY 00578 [facility] 5 5 [facility] T VISIT MODERATE SEVERITY EMERGENCY 45058 [facility] WHITE 5 5 EMERGENCY [facility] T VISIT HIGH/URGE NT SEVERITY HOSPITAL [facility] - 5 5 [facility] T OFFICE 58769 [facility] 5 5 [place] FAMILY RANJEET T VISIT MEDICINE 25 P MINUTES HOSPITAL UNIVERSIT - 5 5 Y [facility] T EMERGENCY 80478 UNIVERSIT 5 5 Y [facility] T VISIT HIGH/URGE NT SEVERITY [facility]ICE 24019 [facility] [place] CAT T VISIT MEDICINE 15 P MINUTES HOSPITAL UNIVERSIT - 5 5 Y [facility] T EMERGENCY 25587 UN[facility] 5 5 Y [facility] T VISIT MODERATE SEVERITY HOSPITAL UNIVERSIT - 5 5 Y [facility] T EMERGENCY 50501 UNIVERSIT 5 5 Y [facility] T VISIT HIGH/URGE NT SEVERITY EMERGENCY 54572 UNIVERSIT DEPT 5 5 Y VISIT HOSPITAL HIGH SEVERITY& THREAT [facility] UNIVERSIT - 5 5 Y [facility] T OFFICE 09377 [facility] CONSULTAT 5 5 N MICHAEL GUERRERO CARDIOLOG NEW/ESTAB Y PATIENT 60 MIN EMERGENCY 03025 [facility] DEPT 5 5 BRO BRO VISIT HIGH SEVERITY& THREAT [facility] UNIVERSIT - 5 5 Y [facility] T EMERGENCY 11331 UNIVERSIT 5 5 Y [facility] T VISIT HIGH/URGE NT SEVERITY EMERGENCY 06461 [place] YOUNG JR 5 5 MEDICAL JEANETTE DEPARTMEN SERV T VISIT FOUNDATIO MODERATE N SEVERITY OFFICE 50722 [facility] OUTPATIEN 5 5 N FAMILY JENNIFER T VISIT CHIROPRAC 10 T MINUTES EMERGENCY 16069 UN[facility]ERSIT 5 5 Y [facility] T VISIT MODERATE SEVERITY HOSPITAL [facility] 5 5 Y [facility] 43918 [facility] 5 5 N URGENT ABD T VISIT CARE 15 [facility] UN[facility] - 5 5 Y [facility] T OFFICE 92877 [facility] 5 5 Y T VISIT 5 HOSPITAL MINUTES OFFICE 53656 [facility] MED[facility] MAR T VISIT SERV 15 FOUNDATIO MINUTES N OFFICE 50746 [facility] 5 MEDICAL CHAD T VISIT SERV 10 FOUNDATIO MINUTES N OFFICE 83000 [facility] 5 5 MEDICAL WAL T VISIT SERV 10 FOUNDATIO MINUTES N OFFICE 41367 [facility] 5 5 [place] FAM[place] ELL T VISIT MEDICINE 15 P MINUTES EMERGENCY 91027 UNIVERSIT 5 5 Y [facility] T VISIT MODERATE SEVERITY HOSPITAL UNIVERSIT - 5 5 Y [facility] T EMERGENCY 43553 AKASH ROCKY 5 5 MEDICAL IRIS DEPARTMEN SERV T VISIT FOUNDATIO HIGH/URGE N NT SEVERITY OFFICE 15458 [facility] 5 MEDICAL WAL T VISIT SERV 15 FOUNDATIO MINUTES N OFFICE 12276 [facility] 5 MEDICAL HCAD T VISIT SERV 15 FOUNDATIO MINUTES N HOSPITAL UNIVERSIT - 5 5 Y [facility] T [facility] 5 5 HOME INPATIENT HEALTH AGENCY OFFICE 00176 [place] LU[place] OUTPATIEN 5 5 MEDICAL SEE T VISIT SERV 15 FOUNDATIO MINUTES N [facility], 5 5 HOME INPATIENT HEALTH AGENCY OFFICE 67530 [place] URVASHI OUTPATIEN 5 5 MEDICAL CHAD T NEW 20 SERV MINUTES FOUNDATIO N OFFICE 82839 [facility] STEVE [facility]ERTA OUTPATIEN 5 5 [place] FAM[place] T VISIT MEDICINE 15 P MINUTES HOSPITAL UNIVERSIT - 5 5 Y [facility] T OFFICE 07780 [facility] 5 5 MONI III JEANETTE GUERRERO PHYSICIAN NEW/ESTAB SERVI PATIENT 60 MIN HOSPITAL UNIVERSIT - 5 5 Y [facility] UN[facility] - 5 5 Y [facility] T OFFICE 40103 [facility] OUTPATI 5 5 N FAMILY JENNIFER T VISIT CHIROPRAC 10 T MINUTES OFFICE 47074 [facility] [place] OUTPATIEN 5 5 [place] JAYDEN T VISIT MEDICINE 15 P MINUTES HOSPITAL UNIVERSIT - 5 5 Y [facility] T EMERGENCY 64425 [facility] HIGH/URGE NT SEVERITY EMERGENCY 02120 [place] BAKER 5 5 MEDICAL JIN DEPARTMEN SERV T VISIT FOUNDATIO MODERATE N SEVERITY OFFICE 21948 AKASH HOLMAN OUTPATIEN 5 5 MEDICAL T VISIT SERV 15 FOUNDATIO MINUTES N HOSPITAL UNIVERSIT - 5 5 Y [facility] T OFFICE 70656 [facility] Y T VISIT HOSPITAL 40 MINUTES HOSPITAL UNIVERSIT - 5 5 Y [facility] OFFICE [id number] KMS[facility] DIEGO [facility] 5 5 NURSE BREANNA T VISIT PRACTITIO 15 NER GR MINUTES OFFICE 64510 [facility] 5 5 Y T VISIT 5 [facility] 5 [facility] OFF[facility] 27974 AKASH HARTMANN [facility] 5 5 MEDICAL JEANETTE T VISIT SERV 15 FOUNDATIO MINUTES [facility] - 5 5 N OUTPATIEN [facility] T HOSPITA EMERGENCY 29922 MICHAEL SANDERSLEY 5 5 STEVO STEVO [facility] T VISIT MODERATE SEVERITY OFFICE 43993 UNIV [facility] 4 4 [place] FAMILY I DAYAN T VISIT MEDICINE 25 P MINUTES [facility]OS[facility] 4 [facility] 64982 PUND CHR PUND CHR DEPT 4 4 VISIT HIGH SEVERITY& THREAT FUNCJ EMERGENCY 23822 AKASH VEGASON 4 4 [facility] VISIT FOUNDATIO MODERATE N SEVERITY EMERGENCY 01775 UNIVERSIT 4 4 Y [facility] T VISIT LOW/MODER SEVERITY HOSPITAL [facility] - 4 4 Y [facility] - 4 4 Y [facility] T OFFICE 86673 UNIV [facility] 4 4 [place] ELL T VISIT MEDICINE 15 P MINUTES OFFICE 67101 [facility] EDINSONMARIA G [facility] 4 4 N URGENT ABD T VISIT CARE 15 MINUTES EMERGENCY 30584 UNIVERSIT 4 4 Y [facility] T VISIT HIGH/URGE NT SEVERITY HOSPITAL UNIVERSIT - 4 4 Y [facility] T OFFICE 47151 AKASH SMITH [facility] 4 4 MEDICAL SEE T VISIT SERV 15 FOUNDATIO MINUTES N HOSPITAL UNIVERSIT - 4 4 Y [facility] HOSPITAL T OFFICE 95094 UNIVERSIT OUTPATIEN 4 4 Y T VISIT 5 HOSPITAL [facility] - 4 4 Y [facility] T OFFICE 81025 [place] HART[place] OUTPATIEN 4 4 MEDICAL JEANETTE T VISIT SERV 40 FOUNDATIO MINUTES HOSPITAL [facility]ERSIT - 4 4 Y [facility] HOSPITAL T EMERGENCY 36952 [place] SLOAS III 4 4 MEDICAL ALEX DEPARTMEN SERV T VISIT FOUNDATIO HIGH/URGE N NT SEVERITY HOSPITAL [facility] - 4 4 Y [facility] T EMERGENCY 70459 UNIVERSIT 4 4 Y [facility] T VISIT MODERATE SEVERITY OFFICE 85290 [facility] CLI CLI T VISIT 15 MINUTES OFFICE 88898 [facility] 4 4 N FAMILY JENNIFER T VISIT CHIROPRAC 10 T MINUTES OFFICE 21303 [facility] 4 4 [place] FAM[place] ARC T VISIT MEDICINE 15 P MINUTES HOSPITAL UNIVERSIT - 4 4 Y [facility] T OFFICE 14590 UNIVERSIT OUTPATIEN 4 4 Y T VISIT 5 HOSPITAL MINUTES OFFICE 91822 UN[facility] OF STEVE DEANNA OUTPATIEN 4 4 [place] T VISIT MEDICINE 15 P MINUTES OFFICE 99561 [place] AVTAR HOLMAN OUTPATIEN 4 4 MEDICAL T VISIT SERV 15 FOUNDATIO [facility] UNIVERSIT [facility] 4 4 Y [facility] T OFFICE 97293 UNIVERSIT OUTPATIEN 4 4 Y T VISIT 5 HOSPITAL [facility] - 4 4 Y [facility] T OFFICE 12609 AKASH TROY HAS OUTPATIEN 4 4 MEDICAL T VISIT SERV 15 FOUNDATIO MINUTES N OFFICE 63381 AKASH SWENSON OUTPATIEN 4 4 MEDICAL DEANNA T VISIT SERV 25 FOUNDATIO MINUTES N OFFICE 52145 JUSTIN PAEZ OUTPATIEN 4 4 N FAMILY JENNIFER T VISIT CHIROPRAC 10 T MINUTES HOSPITAL UN[facility]ERSIT - 4 4 Y [facility]PITAL T EMERGENCY 74380 AKASH BLUNT PANCHO 4 4 MEDICAL DEPARTMEN SERV T VISIT FOUNDATIO HIGH/URGE N NT SEVERITY HOSPITAL UNIVERSIT - 4 4 Y [facility] T OFFICE 09407 UNIV ARANDA OUTPATIEN 4 4 [place] RANJEET T VISIT MEDICINE 15 P MINUTES OFFICE 93620 JUSTIN PAEZ OUTPATIEN 4 4 N FAMILY JENNIFER T VISIT CHIROPRAC 10 T MINUTES OFFICE 47539 [facility] 4 NEUROLOGY [facility] T NEW 45 CENTER MINUTES JONY OFFICE 90230 JUSTIN PAEZ OUTPATIEN 4 4 N FAMILY JENNIFER T NEW 30 CHIROPRAC MINUTES T [facility]OS[facility] 33663 [facility] [employer] [facility] [facility] 4 4 EMERGENCY DEPARTMEN PHYS PSC T VISIT MODERATE SEVERITY EMERGENCY 18060 [facility] [employer] [facility] [facility] 4 [facility] VISIT HIGH/URGE NT SEVERITY [facility] OFF[facility] 54578 [facility] ANDRIA OUTPATIEN 4 4 [place] FAMILY I DAYAN T VISIT MEDICINE 15 P MINUTES OFFICE 20928 AKASH TROY HAS OUTPATIEN 4 4 MEDICAL T VISIT SERV 15 FOUNDATIO MINUTES HOSPITAL UNIVERSIT - 4 4 Y [facility] T HOSPITAL UNIVERSIT - 4 4 Y [facility] T OFFICE 77385 JUSTIN THOMAS [facility] 4 4 N URGENT ABD T NEW 30 CARE MINUTES OFFICE 61557 AKASH CORCORAN JR [facility] 4 4 MEDICAL SULAIMAN T VISIT SERV 25 FOUNDATIO MINUTES HOSPITAL UNIVERSIT - 4 4 Y [facility] T EMERGENCY 10873 UNIVERSIT 4 4 Y [facility] T VISIT HIGH/URGE NT SEVERITY [facility] UNIVERSIT - 4 4 Y [facility] T OFFICE 53500 AKASH HOLMAN [facility] 4 4 MEDICAL T VISIT SERV 15 FOUNDATIO MINUTES OFFICE 52569 [facility] 4 4 [place] FAMILY I DAYAN T VISIT MEDICINE 15 P MINUTES EMERGENCY 57958 AKASH BAKER 4 4 MEDICAL JIN DEPARTMEN SERV T VISIT FOUNDATIO HIGH/URGE N NT SEVERITY
--- OUTSIDE RECORDS SUMMARY | 2017-05-18 06:03 | External Medical Summary Rpt | CCD ---
Demographics Preferred Language Algerian Marital Status Unknown Amish Affiliation Unknown Race Unknown Ethnic Group Unknown Author Author , COURTNEY VALDEZ Address Unknown Phone Immunization No patient found.
--- OUTSIDE RECORDS SUMMARY | 2017-05-18 06:03 | External Medical Summary Rpt | CCD ---
Demographics Preferred Language Bruneian Marital Status Unknown Synagogue Affiliation Unknown Race Unknown Ethnic Group Unknown Author Author , COURTNEY VALDEZ Address Unknown Phone Immunization No patient found.
--- OUTSIDE RECORDS SUMMARY | 2017-05-18 06:03 | External Medical Summary Rpt ---
Author Author COURTNEY Romero, [employer] Address Unknown Phone Unavailable Results CBC W Auto Differential panel in Blood Observa Value Referen Units Interpr Notes Date tion ce etation Range Basophils 0 - 0.2 K/MM3 Normal No May 18 informati 2016 5:25 [#/volume on in AM ] in source Blood by data Automated count Basophils 0.1 - 2.0 % Normal No May 18 /100 informati 2016 5:25 leukocyte on in AM s in source Blood by data Automated count Eosinophi 0.0 - 0.4 K/mm3 Normal No May 18 ls informati 2016 5:25 [#/volume on in AM ] in source Blood by data Automated count Eosinophi 0.1 - % Normal No May 18 ls/100 12.0 informati 2016 5:25 leukocyte on in AM s in source Blood by data Automated count Granulocy 1.8 - 7.8 K/mm3 Normal No May 18 hernando informati 2017 5:25 [#/volume on in AM ] in source Blood by data Automated count Granulocy 37.0 - % Normal No May 18 hernando/100 80.0 informati 2016 5:25 leukocyte on in AM s in source Blood by data Automated count Hematocri 37.0 - % Low No May 18 t [Volume 47.0 informati 2016 5:25 on in AM Fraction] source of Blood data Hemoglobi 12.2 - g/dL Low No May 18 n 16.2 informati 2016 5:25 [Mass/vol on in AM ume] in source Blood data Lymphocyt 0.7 - 4.5 K/mm3 Normal No May 18 es informati 2016 5:25 [#/volume on in AM ] in source Unspecifi data ed specimen by Automated count Lymphocyt 10 - 50.0 % Normal No May 18 es informati 2016 5:25 [#/volume on in AM ] in source Unspecifi data ed specimen by Automated count Erythrocy 27 - 31.2 pg Normal No May 18 te mean informati 2016 5:25 corpuscul on in AM ar source hemoglobi data n [Entitic mass] Erythrocy 31.8 - g/dl Normal No May 18 te mean 35.4 informati 2016 5:25 corpuscul on in AM ar source hemoglobi data n concentra tion [Mass/vol ume] by Automated count Erythrocy 82.2 - fl Normal No May 18 te mean 97.8 informati 2016 5:25 corpuscul on in AM ar volume source [Entitic data volume] by Automated count Monocytes 0.1 - 1.0 K/mm3 Normal No May 18 informati 2016 5:25 [#/volume on in AM ] in source Blood by data Automated count Monocytes 1.7 - 9.3 % Normal No May 18 /100 informati 2016 5:25 leukocyte on in AM s in source Blood by data Automated count Platelet 7.4 - fl Normal No May 18 mean 10.4 informati 2016 5:25 volume on in AM [Entitic source volume] data in Blood by Automated count Platelets 142 - 424 K/mm3 Normal No May 18 inform2016 5:25 [#/volume on in AM ] in source Blood data Erythrocy 4.2 - 5.4 M/mm3 Low No May 18 hernando informati 2016 5:25 [#/volume on in AM ] in source Amniotic data fluid Erythrocy 11.5 - % Normal No May 18 te 17.5 informati 2016 5:25 distribut on in AM ion width source [Entitic data volume] by Automated count Leukocyte 4.8 - K/MM3 Normal No May 18 s 10.8 informati 2016 5:25 [#/volume on in AM ] in source Blood data Cardiac enzymes Observa Value Referen Units Interpr Notes Date tion ce etation Range Creatine 0 - 4.0 U/L Normal No Feb 02 kinase.MB informati 2016 6:56 /Creatine on in PM source kinase.to data annie [Ratio] in Serum or Plasma Creatine 0.0 - 3.6 ng/mL Normal No Feb 02 kinase.MB informati 2016 6:56 on in PM [Mass/vol source ume] in data Serum or Plasma Creatine 26 - 192 U/L Normal No Feb 02 kinase informati 2016 6:56 [Enzymati on in PM c source activity/ data volume] in Serum or Plasma Troponin 0.00 - ng/mL High 0.04 - Jan 5 I.cardiac 0.06 0.49 IS 2017 6:56 AN PM [Mass/vol INDETERMI ume] in NANT Serum or ZONEAnd Plasma can be consisten t with the following diseases: Trauma Criticall y ill patients Joseph >30% TBSACHF Hypothyro idism Amyloidos isHyperte nsion Myocardit is SepsisHyp otension Rhabdomyo lysis Vital exhaust.P ostop surgery Pulmonary embolism CVARenal failure Acute neurologi carmelo disease Atrial fib. Cardiac enzymes Observa Value Referen Units Interpr Notes Date tion ce etation Range Creatine 0 - 4.0 U/L Normal No Jan 5 kinase.MB informati 2016 4:05 /Creatine on in PM source kinase.to data annie [Ratio] in Serum or Plasma Creatine 0.0 - 3.6 ng/mL High No Jan 5 kinase.MB informati 2016 4:05 on in PM [Mass/vol source ume] in data Serum or Plasma Creatine 26 - 192 U/L Normal No Jan 5 kinase informati 2016 4:05 [Enzymati on in PM c source activity/ data volume] in Serum or Plasma Troponin 0.00 - ng/mL High 0. - Feb 02 I.cardiac 0.06 0.49 IS 2016 4:05 AN PM [Mass/vol INDETERMI ume] in NANT Serum or ZONEAnd Plasma can be consisten t with the following diseases: Trauma Criticall y ill patients Joseph >30% TBSACHF Hypothyro idism Amyloidos isHyperte nsion Myocardit is SepsisHyp otension Rhabdomyo lysis Vital exhaust.P ostop surgery Pulmonary embolism CVARenal failure Acute neurologi carmelo disease Atrial fib. Cardiac enzymes Observa Value Referen Units Interpr Notes Date tion ce etation Range Creatine 0 - 4.0 U/L Normal No Jan 5 kinase.MB informati 2017 1:00 /Creatine on in PM source kinase.to data annie [Ratio] in Serum or Plasma Creatine 0.0 - 3.6 ng/mL High No Jan 5 kinase.MB informati 2017 1:00 on in PM [Mass/vol source ume] in data Serum or Plasma Creatine 26 - 192 U/L Normal No Jan 5 kinase informati 2017 1:00 [Enzymati on in PM c source activity/ data volume] in Serum or Plasma Troponin 0.00 - ng/mL High 0.04 - Feb 02 I.cardiac 0.06 0.49 IS 2016 1:00 AN PM [Mass/vol INDETERMI ume] in NANT Serum or ZONEAnd Plasma can be consisten t with the following diseases: Trauma Criticall y ill patients Joseph >30% TBSACHF Hypothyro idism Amyloidos isHyperte nsion Myocardit is SepsisHyp otension Rhabdomyo lysis Vital exhaust.P ostop surgery Pulmonary embolism CVARenal failure Acute neurologi carmelo disease Atrial fib. Cardiac enzymes Observa Value Referen Units Interpr Notes Date ti ce etation Range Creatine 0 - 4.0 U/L Normal No Feb 02 kinase.MB informati 2016 9:37 /Creatine on in AM source kinase.to data annie [Ratio] in Serum or Plasma Creatine 0.0 - 3.6 ng/mL High No Feb 02 kinase.MB informati 2016 9:37 on in AM [Mass/vol source ume] in data Serum or Plasma Creatine 26 - 192 U/L High No Feb 02 kinase informati 2017 9:37 [Enzymati on in AM c source activity/ data volume] in Serum or Plasma Troponin 0.00 - ng/mL High 0.04 - Feb 02 I.cardiac 0.06 0.49 IS 2016 9:37 AN AM [Mass/vol INDETERMI ume] in NANT Serum or ZONEAnd Plasma can be consisten t with the following diseases: Trauma Criticall y ill patients Joseph >30% TBSACHF Hypothyro idism Amyloidos isHyperte nsion Myocardit is SepsisHyp otension Rhabdomyo lysis Vital exhaust.P ostop surgery Pulmonary embolism CVARenal failure Acute neurologi carmelo disease Atrial fib. Comprehensive metabolic 2000 panel in Serum or Plasma Observa Value Referen Units Interpr Notes Date ti etation Range Albumin/G 1.1 - 1.8 No Low No Feb 02 lobulin informati informati 2016 9:37 [Mass on in on in AM ratio] in source source Serum or data data Plasma Albumin 3.4 - 5.0 gm/dL Low No Feb 02 [Mass/vol informati 2016 9:37 ume] in on in AM Serum or source Plasma data Alkaline 46 - 116 U/L High No Feb 02 phosphata informati 2016 9:37 se on in AM [Enzymati source c data activity/ volume] in Serum or Plasma Bilirubin 0.2 - 1.0 mg/dL Normal No Feb 02 .total informati 2017 9:37 [Mass/vol on in AM ume] in source Serum or data Plasma Urea 7 - 18 mg/dL Normal No Feb 02 nitrogen informati 2016 9:37 [Mass/vol on in AM ume] in source Serum or data Plasma Calcium 8.5 - mg/dL Normal No Feb 02 [Mass/vol 10.1 informati 2017 9:37 ume] in on in AM Serum or source Plasma data Chloride 98 - 107 mmoL/L High No Feb 02 [Moles/vo informati 2016 9:37 lume] in on in AM Serum or source Plasma data Carbon 21.0 - mmoL/L Normal No Feb 02 dioxide, 32.0 informati 2016 9:37 total on in AM [Moles/vo source lume] in data Serum or Plasma Creatinin 0.55 - mg/dL Normal No Feb 02 e 1.02 informati 2016 9:37 [Mass/vol on in AM ume] in source Serum or data Plasma Creatinin 50 - 200 ML/MIN Normal No Feb 02 e renal informati 2016 9:37 clearance on in AM source predicted data by Cockcroft -Gault formula Estimated 59- ML/MIN No REFERENCE Feb 02 informati RANGE: 2017 9:37 glomerula on in >60 AM r source ML/MIN/1. filtratio data 73 SQUARE n rate METERSIf (GF this patient is -A merican, then multiply theresult by 1.210. Globulin 1.3 - 3.2 gm/dL High No Feb 02 [Mass/vol informati 2016 9:37 ume] in on in AM Serum source data Glucose 74 - 106 mg/dL High No Feb 02 [Mass/vol informati 2016 9:37 ume] in on in AM Serum or source Plasma data Potassium 3.5 - 5.1 mmoL/L Low No Feb 02 informati 2016 9:37 [Moles/vo on in AM lume] in source Serum or data Plasma Sodium 136 - 145 mmoL/L High No Feb 02 [Moles/vo informati 2016 9:37 lume] in on in AM Serum or source Plasma data Aspartate 15 - 37 U/L Normal No Feb 02 informati 2017 9:37 aminotran on in AM sferase source [Enzymati data c activity/ volume] in Serum or Plasma Alanine 12 - 78 U/L Normal No Feb 02 aminotran informati 2016 9:37 sferase on in AM [Enzymati source c data activity/ volume] in Serum or Plasma Protein 6.4 - 8.2 gm/dL Normal No Feb 02 [Mass/vol informati 2016 9:37 ume] in on in AM Serum or source Plasma data CBC W Auto Differential panel in Blood Observa Value Referen Units Interpr Notes Date tion ce etation Range Basophils 0 - 0.2 K/MM3 Normal No Feb 02 informati 2016 9:37 [#/volume on in AM ] in source Blood by data Automated count Basophils 0.1 - 2.0 % Normal No Feb 02 / informati 2017 9:37 leukocyte on in AM s in source Blood by data Automated count Eosinophi 0.0 - 0.4 K/mm3 Normal No Feb 02 ls informati 2016 9:37 [#/volume on in AM ] in source Blood by data Automated count Eosinophi 0.1 - % Normal No Feb 02 ls/100 12.0 informati 2016 9:37 leukocyte on in AM s in source Blood by data Automated count Granulocy 1.8 - 7.8 K/mm3 Normal No Feb 02 hernando informati 2016 9:37 [#/volume on in AM ] in source Blood by data Automated count Granulocy 37.0 - % Normal No Feb 02 hernando/100 80.0 informati 2016 9:37 leukocyte on in AM s in source Blood by data Automated count Hematocri 37.0 - % Low No Feb 02 t [Volume 47.0 informati 2016 9:37 on in AM Fraction] source of Blood data Hemoglobi 12.2 - g/dL Low No Feb 02 n 16.2 informati 2016 9:37 [Mass/vol on in AM ume] in source Blood data Lymphocyt 0.7 - 4.5 K/mm3 Normal No Feb 02 es informati 2016 9:37 [#/volume on in AM ] in source Unspecifi data ed specimen by Automated count Lymphocyt 10 - 50.0 % Normal No Feb 02 es informati 2016 9:37 [#/volume on in AM ] in source Unspecifi data ed specimen by Automated count Erythrocy 27 - 31.2 pg Normal No Feb 02 te mean informati 2017 9:37 corpuscul on in AM ar source hemoglobi data n [Entitic mass] Erythrocy 31.8 - g/dl Normal No Feb 02 te mean 35.4 informati 2016 9:37 corpuscul on in AM ar source hemoglobi data n concentra tion [Mass/vol ume] by Automated count Erythrocy 82.2 - fl Normal No Feb 02 te mean 97.8 informati 2016 9:37 corpuscul on in AM ar volume source [Entitic data volume] by Automated count Monocytes 0.1 - 1.0 K/mm3 Normal No Feb 02 informati 2016 9:37 [#/volume on in AM ] in source Blood by data Automated count Monocytes 1.7 - 9.3 % Normal No Feb 02 /100 informati 2017 9:37 leukocyte on in AM s in source Blood by data Automated count Platelet 7.4 - fl Normal No Feb 02 mean 10.4 informati 2016 9:37 volume on in AM [Entitic source volume] data in Blood by Automated count Platelets 142 - 424 K/mm3 Normal No Feb 02 informati 2016 9:37 [#/volume on in AM ] in source Blood data Erythrocy 4.2 - 5.4 M/mm3 Low No Feb 02 hernando informati 2016 9:37 [#/volume on in AM ] in source Amniotic data fluid Erythrocy 11.5 - % Normal No Feb 02 te 17.5 informati 2016 9:37 distribut on in AM ion width source [Entitic data volume] by Automated count Leukocyte 4.8 - K/MM3 Normal No Feb 02 s 10.8 informati 2016 9:37 [#/volume on in AM ] in source Blood data
[2017-05-18 06:05] LABS: URINE RENAL CELLS OCC #/HPF
--- NOTE | 2017-05-18 07:36 | Emergency Room Report ---
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 DYSURIA, DENIES ANY VAGINAL DISCHARGE. 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 N Clinical Suspician of Infection? N Mental Status: 1 - Regular (Normal Baseline) Sepsis Risk:Low Sepsis Risk Have you (or family members/close friends) recently traveled outside the [place]? N If Yes, where/when: Have you had exposure to infectious disease within the past month? N TB? Other? Specify: Source patient, RN notes reviewed, family, old records Exam Limitations no limitations Comment pt with abd pain over the last month with no fever or rash and no neuro sx Cardiac Chest Pain Chest pain indicative of cardiac No Timing/Duration this evening Severity moderate ALLERGIES Coded Allergies: EGGS (FOOD) (From EGGS (FOOD/DRUG)) (I-RASH 02/02/17) Penicillins (10/02/16) Sulfa (Sulfonamide Antibiotics) (10/02/16) egg (From EGGS (FOOD/DRUG)) (I-RASH 02/02/17) trimethoprim (10/02/16) Home Medications Active Scripts Lisinopril 10 MG PO BID 30 Days Prov: 02/04/17 Amlodipine Besylate (Amlodipine Besylate) 10 MG PO DAILY 30 Days Prov: 02/04/17 Metoprolol Tartrate (Lopressor) 50 MG PO BID 30 Days Prov: 02/04/17 Reported Medications Fluticasone Propionate (Flonase 50 Mcg Nasal [place]) 1 SPRAY NA DAILY #16 Furosemide 40 MG PO DAILY #30 Omeprazole (Omeprazole 40MG) 40 MG PO DAILY Docusate Sodium 100 MG PO BID Acyclovir (Acyclovir 800MG) 800 MG PO DAILY Lowgap-3 Fatty Acids (Lowgap-3) 1,000 MG PO DAILY Baclofen (Baclofen 20MG) 20 MG PO TIDP PRN MUSCLE SPASMS POLYETHYLENE GLYCOL (Miralax) 17 GM PO DAILY PRN CONSTIPATION ASPIRIN (Aspirin) 81 MG PO DAILY Calcium Carbonate (Calci-Chew) 500 MG PO DAILY Loratadine (Allergy) 10 MG PO DAILY Potassium Chloride 10 MEQ PO DAILY #30 Risperidone 3 MG PO QPM #30 TAB Risperidone (Risperdal 0.5 Mg Tablet) 0.5 MG PO DAILY Sertraline Hcl (Sertraline 50MG) 50 MG PO DAILY Albuterol Sulfate (Proair Hfa) 2 PUFF IH Q4HP PRN BREATHING PHENYTOIN SODIUM EXTENDED (Phenytoin 100MG Capsule) 200 MG PO DAILY Lorazepam (Ativan 1MG) 1 MG PO QHS Melatonin 6 MG PO NIGHT ONLY Loperamide HCl (Imodium A-D) 2 MG PO [id number] PRN DIARRHEA History Medical History General CAD? No Angina: Yes RI: No Hypertension? Yes Hyperlipidemia? No CHF? No DVT? No PE? No COPD? No Asthma? No Anemia? No GERD? No Gastric ulcers? No GI Bleed? No Hernia? No Thyroid Problems? No Hypothyroidism? No CVA? No Seizures? No Diabetes? No Renal Insuffiency? No End Stage Renal Disease? No UTI? No Stones? No BPH? No GB Disease: No Nephritic Syndrome? No Asplenia? No Hepatitis? No Sickle Cell Disease? No Arthritis? No Migraines? No Cataracts? No Glaucoma? No MRSA? No HIV? No TB? No Anxiety? No Depression? No Cancer? No More? Yes Additional hx: SCHIZOAFFECTIVE -- long-term history of alcohol abuse Immunization Hx DT/Tetanus Unknown Flu Refused Pneumonia Refuses Surgical Hx Previous Surgery?Y Hysterect POLYPECTOMY R BREAST LUMPECTOMY X 2 R BREAST TISSUE REMOVED EYELID BILATERALLY COLONOSCOPY LT KNEE CAROLYN HIP REPLACE Family History Family Hx Diabetes Yes CAD Yes Hypertension Yes Hyperlipidemia Yes Cancer Yes TB Yes Social History Smoking Hx Smoker: Former Smoker Tobacco: No Type Cigars Packs/day < 1 Pack Alcohol Alcohol: No Drugs none Review of Systems All Other Systems Reviewed and Negative Constitutional denies fever Eyes denies drainage ENT denies: ear discharge. Respiratory denies cough, denies shortness of breath Cardiovascular denies chest pain, denies palpitations, denies syncope Gastrointestinal see HPI, abdominal pain, nausea, denies vomiting Genitourinary denies: dysuria, frequency, hesitancy, hematuria. Musculoskeletal denies back pain, denies joint pain, denies neck pain Skin denies rash Psychiatric/Neurological denies headache, denies seizure Physical Exam Vital Signs Vital Signs Date Time Temp Pulse Resp B/P Pulse O2 O2 Flow FiO2 Ox Delivery Rate 05/18 655 43 20 177/60 97 05/18 0632 50 14 152/70 95 05/18 0510 98.9 49 20 150/70 96 - WBC >12,000 or <4,000 or 10% bands? 2 or more SIRS Criteria Met? B/P:177/60 MAP:96 Creatinine >2.0? UA output<0.5ml/kg/hr for 2 hrs? Platelet count >100,000? Lactate >2.0mmol/1? INR >1.2 or PTT > than 60 sec? Evidence of Organ Dysfunction? Provider documented clinical suspician of infection? N Sepsis Criteria Count: 1 Sepsis Risk: Low Sepsis Risk General Appearance no apparent distress Eye Exam - bilateral eye PERRL, bilateral eye EOMI Ear, Nose, Throat normal ENT inspection Neck supple Respiratory Status No: respiratory distress. Lung Sounds bilateral: lungs clear. 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 No Results/Orders Laboratory Tests 05/18/17 0555: Sodium 140, Potassium 3.5, Chloride 104, Carbon Dioxide 31, BUN 12, Creatinine 0.8, Estimated Creat Clear 78, Estimated GFR (MDRD) 72, Glucose 102, Calcium 8.5 , Total Bilirubin 0.4, AST 33, ALT 29, Alkaline Phosphatase 147 H, Total Protein 6.2 L, Albumin 3.2 L, Globulin 3.0, Albumin/Globulin Ratio 1.1 05/18/17 0550: Urine Color YELLOW, Urine Appearance CLEAR, Urine pH 6.0, Ur Specific [place] 1.015, Urine Protein NEGATIVE, Urine Ketones NEGATIVE, Urine Blood NEGATIVE, Urine Nitrate NEGATIVE, Urine Bilirubin NEGATIVE, Urine Urobilinogen 0.2, Ur Leukocyte Esterase TRACE H, Urine WBC 5-10, Urine Renal Cells OCC, Urine Bacteria 1+, Urine Glucose NEGATIVE 05/18/17 0525: WBC 4.8, RBC 3.97 L, Hgb 11.9 L, Hct 35.6 L, MCV 89.7, RDW 15.7, Plt Count 189, MPV 8.0, Gran % 51.2, Gran # 2.5, Lymphocytes % 34.3, Monocytes % 7.1, Eosinophils % 6.7, Basophils % 0.7, Lymphocytes # 1.7, Monocytes # 0.3, Eosinophils # 0.3, Basophils # 0.0, PUBS MCHC 33.4, MCH 29.9 Current Medication Orders Sig/Luther Start time Last Medication Dose Route Stop Time Status Admin Sodium Chloride 10 ML PRN PRN 05/18 05 AC IV 05/19 0523 Orders Procedure Date/time Status DIET-NOTHING BY MOUTH 05/18 B Active URINARY CATHETER INSERT 05/18 0555 Active CULTURE, URINE 05/[address] ABD & PELVIS W/O CONTRAST 05/[address] ABD/PELVIS REQ 05/18 05 Complete IV SALINE LOCK 05/18 0524 Active URINALYSIS/COMPLETE 05/18 524 Complete CBC WITH AUTO DIFF 05/18 524 Complete CHEM 12 PROFILE 05/18 524 Complete XRAY/CT/US XRAY/CT/US CT abdomen, pelvis CT interpretation by discussed w/radiologist Time results known: 07 CT Results abnormal (see report) Departure Departure Time of Disposition 07 Disposition DC Home or Self Care(routine) Clinical Impression Primary Impression: Abdominal pain Qualifiers: Abdominal location: right lower quadrant Qualified Code: R10.31 - Right lower quadrant pain Condition STABLE Referrals Ben Li MD (Family) Patient Instructions DI for Abdominal Pain-Adult Additional Instructions fluids and see pcp for follow up Discharge Counseling Counseled pt/family regarding diagnosis, test results, follow up needs ED Critical Care Critical Care No at [id number]
--- NOTE | 2017-05-18 08:13 | RADIOLOGY REPORT PS360 ---
CT ABD PELVIS W/O CONTRAST CLINICAL INDICATION: Right-sided abdominal pain, right groin pain GROIN PAIN ORDERING PHYSICIAN: Cb Li MD PATIENT AGE: 67 years COMPARISON: 01/25/2010 TECHNIQUE: Axial images obtained with sagittal and coronal reformats. PROCEDURE: Oral Contrast: None IV Contrast: None . FINDINGS: Lower thorax: There are atelectatic/fibrotic changes in the lung bases. The descending thoracic aorta is tortuous and ectatic measuring up to 3.8 cm in transverse dimension. A stable 6 mm subpleural nodular opacity is present in the right lung base laterally. Abdomen and pelvis: Prior cholecystectomy. Small amount fluid is present in the gallbladder fossa. No focal liver lesion. No obvious biliary dilatation. The spleen and pancreas have an unremarkable appearance. The adrenal glands are stable slightly prominent. 3 mm nonobstructing stone lower pole right kidney. The distal ureters and urinary bladder is obscured by artifact from hip prosthesis. There is a moderate amount retained colonic feces throughout the colon. A suture line is present at the cecal region. No evidence of appendicitis or diverticulitis. There is diverticulosis of the sigmoid colon. A small amount fluid is present in the pelvis. There is a tiny umbilical hernia containing fat. Bilateral hip prosthesis present with significant artifact. No obvious acute bony anomalies. No obvious adenopathy or mass or abscess within the groin. IMPRESSION: 1. Constipation. 2. Small amount fluid in the gallbladder fossa and pelvis nonspecific. 3. Stable right lower lobe nodule. 4. Nonobstructing right nephrolithiasis 2. ABDOMEN: Liver: No masses or biliary dilatation. Gallbladder: Nondistended. No radio opaque stones. Pancreas: No masses or peripancreatic fluid collections. Spleen: Unremarkable. Adrenals: Unremarkable Kidneys/ureters: No masses. No renal calculi. No hydronephrosis. No perinephric fluid collections. No ureteral dilatation or obvious ureteral calculi. Stomach bowel: Nondistended. No obvious mass or thickening. Appendix: No evidence of appendicitis. PELVIS: Reproductive: Unremarkable Bladder: Nondistended. No obvious stones or masses. ABDOMEN & PELVIS: Peritoneum: No abnormal fluid collections. No obvious inflammatory changes. No free air. Lymph nodes: No enlarged lymph nodes apparent. Vasculature: No evidence of abdominal aortic aneurysm. No retroperitoneal hemorrhage evident. Bones: No acute fracture IMPRESSION: Negative, no acute intra-abdominal or pelvic pathology apparent
[2017-05-18 09:31] VITALS: BP 160/72
== END 2017-05-18 09:32 | disposition home or self-care (01) ==
LOC: ER 05:08
PROVIDERS: Emergency Medicine
DX: R10.31 Right lower quadrant pain (principal); I10 Essential (primary) hypertension; F20.9 Schizophrenia, unspecified; F10.10 Alcohol abuse, uncomplicated; Z87.891 Personal history of nicotine dependence